=== PATIENT | female | born 1960 | race African-American/Black ===

== ENCOUNTER 2017-09-30 18:15 | Inpatient (IN) | payer OTHER, SELFPAY ==
[2017-09-30] MEDS ORDERED: Oxymetazoline HCl 0.05% ( 15 ML ) ONE (18:30)
[2017-09-30] MEDS ORDERED: cloNIDine 0.1 MG TAB ONE ×2 (18:31→18:32)
[2017-09-30] MEDS ORDERED: Bacitracin Zinc 1 Packet ONE ×2 (19:49→19:51)
--- NOTE | 2017-09-30 20:16 | RAD ---
AP VIEW OF THE CHEST: 09/30/17 INDICATION: Chest pain with nose bleeds. COMPARISON: Prior exam dated 04/18/12. FINDINGS: Lungs are clear. Cardiomediastinal silhouette appears unchanged. There is mild cardiomegaly. Osseous structures are similar. IMPRESSION: Stable cardiomegaly. No definite acute cardiopulmonary abnormality. POS: [facility]
[2017-09-30 20:37] LABS: #Basophils 0.1 thou/uL (0.0-0.2); #Eosinphils 0.1 thou/uL (0.0-0.7); #Lymphocytes 1.2 thou/uL (1.20-3.40); #Monocytes 0.4 thou/uL (0.11-0.59); #Neutrophils 3.5 thou/uL (1.40-6.50); %Basophils 1.5 % (0.0-1.0); %Eosinophils 2.3 % (0.0-10.0); %Lymphocytes 22.9 % (21.0-51.0); %Monocytes 6.9 % (0.0-10.0); %Neutrophils 66.3 % (42.0-75.0); Hemoglobin 8.4 g/dL (12.0-16.0); Mean Platelet Volume 8.3 fL (7.4-10.4); Platelet Count 152 thou/uL (130-400); RBC Distribution Width 11.7 % (11.5-14.5); Red Blood Cell (RBC) Count 2.47 mill/uL (4.20-5.40); White Blood Cell (WBC) Count 5.3 thou/uL (4.8-10.8)
[2017-09-30 20:52] LABS: ALT (SGPT) 19 U/L (8-55); AST (SGOT) 41 U/L (5-34); Alkaline Phosphatase 66 U/L (40-150); Anion Gap 15 mmol/L (10-20); BUN (Urea Nitrogen) 40 mg/dL (9.8-20.1); Bilirubin, Total 0.3 mg/dL (0.2-1.2); CK (CPK) 184 U/L (29-168); Calc. Creatinine Clearance 0 mL/min (70-130); Calcium 8.8 mg/dL (7.8-10.44); Carbon Dioxide 18 mmol/L (22-29); Chloride 112 mmol/L (98-107); Estimated GFR-MDRD 30; Globulin 3.4 g/dL (2.4-3.5); Glucose 112 mg/dL (70-105); Potassium 4.1 mmol/L (3.5-5.1); Protein, Total 7.4 g/dL (6.0-8.3); Sodium 141 mmol/L (136-145)
[2017-09-30 20:56] LABS: CKMB 1.7 ng/mL (0-6.6); Troponin I 0.013 ng/mL (< 0.028)
[2017-09-30] MEDS ORDERED: hydrALAZINE 20 MG/ML VIAL ONE (21:15)
[2017-09-30] MEDS ORDERED: Ondansetron ODT 4 MG TAB ONE ×3 (21:16→21:53)
[2017-09-30] MEDS ORDERED: niCARdipine 20MG In NaCl 20 MG/200 ML BAG ONE (21:43)
[2017-09-30 21:44] LABS: Bilirubin Negative (Negative); Blood, Urine Negative (Negative); Clarity CLEAR (Clear); Glucose, Urine (Dipstick) Negative (Negative); Leukocyte Negative (Negative); Nitrite Negative (Negative); Protein, Urine (Dipstick) 100 mg/dL (Neg-Trace)
[2017-09-30 21:46] LABS: Bacteria/HPF None Seen HPF (None Seen); Hyaline Casts/LPF 0-3 HYALINE CAST LPF (0-3 Hyaline); RBC/HPF 0-3 HPF (0-3); Squamous Epithelial 0-3 HPF (0-3); WBC/HPF 0-3 HPF (0-3)
--- NOTE | 2017-09-30 23:04 | CT ---
CT OF THE BRAIN WITHOUT CONTRAST: 09/30/17 INDICATION: History of head pain and nose bleeds. COMPARISON: Prior exam dated 04/18/12. FINDINGS: There is mild generalized cerebral atrophy. There is mild chronic small vessel white matter ischemic change. No acute infarct, hemorrhage or hydrocephalus present. small air fluid level seen in the righ t maxillary sinus and sphenoid sinus. Skull is intact. IMPRESSION: 1. No acute intracranial abnormality. 2. Stable involutional changes and chronic ischemic change. 3. Small air fluid levels within the right maxillary sinus and sphenoid sinus may be related to the patient's reported nose bleed and some hemorrhage collecting within the paranasal sinuses. POS: [facility]
[2017-09-30] MEDS ORDERED: hydrALAZINE 20 MG/ML VIAL SLOW IVP PRN (23:24)
[2017-09-30] MEDS ORDERED: Ondansetron ODT 4 MG TAB SL PRN (23:25)
[2017-09-30] MEDS ORDERED: Acetaminophen 325 MG TAB PO PRN (23:25)
[2017-09-30] MEDS ORDERED: Ondansetron HCl/PF 4 MG/2 ML Vial IVP PRN (23:25)
[2017-09-30] MEDS ORDERED: Sodium Chloride 0.9% 1,000 ML IV SCH (23:25)
[2017-09-30 23:29] VITALS: BMI 20.9
[2017-10-01] MEDS ORDERED: Milk Of Magnesia 30 ML UDCUP PO PRN (00:24)
[2017-10-01] MEDS ORDERED: Zolpidem Tartrate 5 MG TAB PO PRN (00:24)
[2017-10-01] MEDS ORDERED: Ondansetron ODT 4 MG TAB PO PRN (00:24)
[2017-10-01] MEDS ORDERED: Nitroglycerin 0.4 MG TAB (25 Tab Bottle) SL PRN (00:24)
[2017-10-01] MEDS ORDERED: hydrALAZINE 20 MG/ML VIAL SLOW IVP PRN (00:24)
[2017-10-01] MEDS ORDERED: Senokot 8.6 MG TAB PO PRN (00:24)
[2017-10-01] MEDS ORDERED: Sodium Chloride 0.65% Nasal 44 ML BOT EA NARE PRN (00:24)
[2017-10-01] MEDS ORDERED: Artificial Tears 18 DROP/0.9 ML EA EYE PRN (00:24)
[2017-10-01] MEDS ORDERED: Acetaminophen 325 MG TAB PO PRN (00:24)
[2017-10-01] MEDS ORDERED: cloNIDine 0.1 MG TAB PO PRN (00:24)
[2017-10-01] MEDS ORDERED: HYDROcodone/Acetaminophen 5/325 mg Tablet PO PRN (00:24)
[2017-10-01] MEDS ORDERED: Loratadine 10 MG TAB PO PRN (00:24)
[2017-10-01] MEDS ORDERED: Mag-Al 1200 mg/1200 mg/30 ML UDCUP PO PRN (00:24)
[2017-10-01] MEDS ORDERED: Hydrocerin (Eucerin) Cream 120 gm Jar TOP PRN (00:24)
[2017-10-01] MEDS ORDERED: Loperamide HCl 2 MG CAP PO PRN (00:24)
[2017-10-01] MEDS ORDERED: Ondansetron HCl/PF 4 MG/2 ML Vial IVP PRN (00:24)
[2017-10-01] MEDS ORDERED: Labetalol HCl 100 MG/20 ML VIAL SLOW IVP PRN (00:24)
[2017-10-01] MEDS ORDERED: Chloraseptic Spray 180 ml Bottle PO PRN (00:24)
[2017-10-01] MEDS ORDERED: Diabetic Tussin 200 MG/10 ML UDCUP PO PRN (00:24)
[2017-10-01] MEDS: Nicotine 21 MG PATCH TD SCH ×2 (01:24→20:41)
[2017-10-01 01:38] LABS: Bilirubin Negative (Negative); Blood, Urine Negative (Negative); Clarity CLEAR (Clear); Glucose, Urine (Dipstick) Negative (Negative); Leukocyte Negative (Negative); Nitrite Negative (Negative); Protein, Urine (Dipstick) 100 mg/dL (Neg-Trace); pH, Urine 6.5 (5.0-9.0)
[2017-10-01 01:41] LABS: Bacteria/HPF None Seen HPF (None Seen); Hyaline Casts/LPF 0-3 HYALINE CAST LPF (0-3 Hyaline); Pathc Cast-AUWi Flag 0.14 (0-2.49); RBC/HPF 0-3 HPF (0-3); Squamous Epithelial 0-3 HPF (0-3); WBC/HPF None Seen HPF (0-3)
[2017-10-01 01:45] LABS: Amphetamine Not Detected (NotDetected); Barbiturates Screen Not Detected (NotDetected); Benzodiazepine Screen Not Detected (NotDetected); Cocaine Metabolite Screen Not Detected (NotDetected); Medtox Control Line Valid? VALID (VALID); Medtox Reader # READER 4; Methadone Not Detected (NotDetected); Methamphetamine Not Detected (NotDetected); Opiate Screen Not Detected (NotDetected); Oxycodone Screen Not Detected (NotDetected); Phencyclidine (PCP) Not Detected (NotDetected); THC/Cannabinoid Screen Not Detected (NotDetected); Tricyclic Screen Not Detected (NotDetected)
[2017-10-01 02:07] LABS: Creatinine, Urine 37.09 mg/dL (47-110)
--- NOTE | 2017-10-01 02:21 | HP ---
PRIMARY CARE PHYSICIAN: City call admission. REASON FOR ADMISSION: Hypertensive urgency/emergency, epistaxis. HISTORY OF PRESENT ILLNESS: A 57-year-old -[place] female who has history of hypertension an d she is not taking any medication because she cannot afford any medication. Today, she came to [facility] room with epistaxis. The patient had spontaneous epistaxis from the right naris only for 4 shane rs. The patient denies any trauma. She denies any bleeding disorders. She denies taking any blood thinner medication. When she presented to emergency room, she was hypertensive. Her epistaxis was c ontrolled with packing. Subsequently, the patient was having headache and her blood pressure was out of control and that is why the patient is being admitted in hospital. Today, routine blood tests showed an elevated creatinine. Her last admission in our hospital was in 2011. At that time, her renal function was normal. Since then, she did not have any further check o r hospitalization, so in between creatinine is not known. The patient reports that she has not seen any physician since then. PAST MEDICAL HISTORY: History of hypertension. PAST SURGICAL HISTORY: Hand surgery. PAST PSYCHIATRIC HISTORY: Reviewed and negative. FAMILY HISTORY: Hypertension runs among several family members. No strong family history of prematu re coronary artery disease, stroke or cancer. SOCIAL HISTORY: The patient drinks alcohol almost every day basis. She also smokes about 1 pack per day. She denies any other illicit drug abuse. ALLERGIES: No known drug allergy. CURRENT HOME MEDICATIONS: The patient is not taking any prescribed or non-prescribed medications. S he cannot afford any medication. REVIEW OF SYSTEMS: The following complete review of systems was negative, unless otherwise mentioned in the HPI or below: Constitutional: Weight loss or gain, ability to conduct usual activities. Sk in: Rash, itching. Eyes: Double vision, pain. ENT/Mouth: Nose bleeding, neck stiffness, pain, te nderness. Cardiovascular: Palpitations, dyspnea on exertion, orthopnea. Respiratory: Shortness of breath, wheezing, cough, hemoptysis, fever or night sweats. Gastrointestinal: Poor appetite, abdom inal pain, heartburn, nausea, vomiting, constipation, or diarrhea. Genitourinary: Urgency, frequenc y, dysuria, nocturia. Musculoskeletal: Pain, swelling. Neurologic/Psychiatric: Anxiety, depressio n. Allergy/Immunologic: Skin rash, bleeding tendency. Please see my HPI for pertinent positive and negative. All other review of systems reviewed and negative except as mentioned in the HPI. EMERGENCY ROOM COURSE: The patient was given hydralazine 10 mg IV push, clonidine 0.2 mg, Afrin nasa l spray, Zofran 4 mg x2. PHYSICAL EXAMINATION: VITAL SIGNS: On arrival, blood pressure 254/134, pulse 112, respiratory rate 16, temperature 98.3, s aturation 94% on room air, weight 54.4 kilograms. GENERAL: The patient is currently alert, awake, hypertensive. HEAD: Normocephalic, atraumatic. EYES: Pupils are round and reactive to light. Extraocular muscle intact. ENT: The patient has bleeding from right naris, which is covered, which is stopped after packing. N dimitrios trocar is present. Left naris within normal limits. Oropharynx within normal limits. No phary ngeal erythema, no exudate. NECK: Supple, no thyromegaly, no carotid bruit, no jugular venous distention. LUNGS: Clear to auscultation without any rhonchi or rales. CARDIAC: S1, S2 regular without any significant murmur. ABDOMEN: Soft, bowel sounds present, nontender, nondistended. No organomegaly, no mass, no suprapub ic tenderness. BACK: Unremarkable, no CVA tenderness. EXTREMITIES: Upper extremity: Passive movement of all joints are normal. Lower extremities: No ed rashaun. Good peripheral pulsation. SKIN: No skin rash. HEMATOLOGICAL SYSTEM: No lymphadenopathy. PSYCHIATRIC: Normal affect. NEUROLOGIC: Nonfocal examination. Cranial nerves II-XII intact. Motor and sensation within normal limits. No cerebellar sign. Plantar bilateral flexor. SIGNIFICANT LABORATORY DATA: 1. EKG showing normal sinus rhythm. 2. CT brain based on my review, no acute intracranial process. 3. Chest x-ray based on my review, no acute cardiopulmonary process. 4. CBC: WBC 5.3, hemoglobin 8.4, MCV 100, platelet 152. 5. BMP: Sodium 141, potassium 4.1, chloride 112, carbon dioxide 18, BUN 40, creatinine 2.04, glucos e 112, calcium 8.8. 6. LFT: AST 41, ALT 15, alkaline phosphatase 66, albumin 4.0. 7. CK 184, CK-MB 1.7, troponin I 0.013. BNP 63.4. 8. Urinalysis, unremarkable other than protein plus. ASSESSMENT AND PLAN: IMPRESSION: 1. Hypertensive urgency/emergency. This patient has renal insufficiency. Her blood pressure was ve ry high and associated with epistaxis. At this point, we are going to control her blood pressure wit h intermittent parenteral blood pressure medication including hydralazine and labetalol. We will als o use clonidine on p.r.n. basis. I will start Procardia-XL 60 mg p.o. daily and Coreg 12.5 mg p.o. t wice daily. We will monitor her vitals closely in IMCU and adjust blood pressure medication. The [facility] may need a financial assistance for medication upon discharge. 2. Epistaxis likely related with hypertension. ENT will be consulted. This patient will need remov al of nasal packing once bleeding stops. We will give her prophylactically Augmentin 500 mg twice da fela. 3. Acute/chronic kidney failure. I am suspecting chronic kidney failure from hypertensive nephroscl erosis. We will check urine protein/creatinine ratio. Kidney ultrasound will be obtained. We will check parathyroid hormone and phosphorus level tomorrow. We will repeat renal function test tomorrow . The patient will need outpatient Nephrology evaluation. 4. Macrocytic anemia from alcohol abuse. The patient will be given folic acid and vitamin B12 thera py while in hospital. 5. Tobacco abuse disorder. Smoking cessation counseling given. We will offer nicotine patch while in hospital. 6. Deep venous thrombosis prophylaxis. No Lovenox because of bleeding. 7. Gastrointestinal prophylaxis, Pepcid 20 mg p.o. daily. 8. Code status: The patient is FULL CODE. The patient does not have any surrogate decision maker. Disposition plan based on clinical course. We are expecting the patient's stay in hospital more than 2 midnights. Plan of care discussed with the patient in detail.
[2017-10-01 02:32] LABS: #Basophils 0.1 thou/uL (0.0-0.2); #Lymphocytes 1.5 thou/uL (1.20-3.40); #Monocytes 0.4 thou/uL (0.11-0.59); %Basophils 0.9 % (0.0-1.0); %Eosinophils 0.7 % (0.0-10.0); %Lymphocytes 21.5 % (21.0-51.0); %Monocytes 5.3 % (0.0-10.0); %Neutrophils 71.6 % (42.0-75.0); Hemoglobin 8.1 g/dL (12.0-16.0); Mean Corpuscular HGB CONC 33.5 g/dL (32.0-36.0); Mean Corpuscular Hemoglobin 33.7 pg (27.0-31.0); Mean Platelet Volume 7.6 fL (7.4-10.4); Platelet Count 134 thou/uL (130-400); RBC Distribution Width 11.8 % (11.5-14.5)
[2017-10-01 02:48] LABS: Troponin I 0.015 ng/mL (< 0.028)
[2017-10-01 03:13] LABS: Albumin 3.9 g/dL (3.5-5.0); Anion Gap 17 mmol/L (10-20); BUN (Urea Nitrogen) 44 mg/dL (9.8-20.1); BUN/Creatinine Ratio 23.04; Calc. Creatinine Clearance 28 mL/min (70-130); Calcium 8.8 mg/dL (7.8-10.44); Carbon Dioxide 15 mmol/L (22-29); Chloride 109 mmol/L (98-107); Estimated GFR-MDRD 33; Glucose 122 mg/dL (70-105); Phosphorus 4.4 mg/dL (2.3-4.7); Potassium 3.7 mmol/L (3.5-5.1); Sodium 137 mmol/L (136-145)
[2017-10-01] MEDS: NIFEdipine XL 60 MG TAB PO SCH (08:11)
[2017-10-01] MEDS: hydrALAZINE 25 MG TAB PO SCH ×3 (08:11→20:41)
[2017-10-01] MEDS: Carvedilol 25 MG TAB PO SCH ×2 (08:11→15:20)
[2017-10-01] MEDS: Folic Acid 1 MG TAB PO SCH (08:11)
[2017-10-01] MEDS: Famotidine 20 MG TAB PO SCH (08:11)
[2017-10-01] MEDS: Cyanocobalamin (Vitamin B-12) 1,000 MCG TAB PO SCH (08:11)
--- NOTE | 2017-10-01 08:49 | ULT ---
RENAL SONOGRAM: DATE: 10/01/17. HISTORY: Acute renal insufficiency. FINDINGS: The kidneys demonstrate increased echogenicity bilaterally without renal cortical thinning. The righ t kidney measures 9.7 cm x 5 cm with the left kidney measuring 9.8 cm x 5 cm. There is no hydronephr osis seen bilaterally. There is a suggestion of a small amount of perinephric fluid bilaterally. Th ere is a very small echogenic focus seen within the mid portion of the left kidney with shadowing pre sent. This measures approximately 5 mm and may potentially represent a calculus, although this is di fficult to definitely determine. No renal mass or hydronephrosis is present. The urinary bladder is partially distended and has a normal sonographic appearance. The ureteral jet s are seen bilaterally on color flow evaluation. IMPRESSION: 1. Hyperechoic appearance of each kidney without renal cortical thinning. This can be seen with chr onic medial renal disease. 2. No evidence of hydronephrosis. 3. Questionable nonobstructing calculus mid portion left kidney. 4. No hydronephrosis. POS: [facility]
--- NOTE | 2017-10-01 14:11 | CON ---
DATE OF CONSULTATION: 10/01/2017 HISTORY OF PRESENT ILLNESS: Vy Middleton presented to the emergency room with a nose bleed this morning. For some reason, she had a head CT and a chest x-ray. Chest radiograph shows a generous cardiac silhouette which is an old finding. Head CT showed chronic white matter disease issues. Her right naris was packed. She has had a right renal ultrasound this morning, which hyperechogenic appearance of both kidneys with possible calculus in the left kidney. This was read out as questionable. PAST MEDICAL HISTORY: Remarkable for hypertension. She admits that she has not been taking any medicine for hypertension because she "cannot afford it." We discussed [facility] as well as [facility] $ 4 plan and I have explained to her that she is very fortunate that she just in here with a nose bleed and not parenchymal brain hemorrhage. When she was last here, she was at the [facility] as an inmate and presented with complaints of passing out. Family reported history of COPD, heavy alcohol use, heavy tobacco use, hypertension, and carpal tunnel surgery. SOCIAL HISTORY: Patient uses alcohol / tobacco FAMILY HISTORY: Positive for mother in her 70s. Father had diabetes. REVIEW OF SYSTEMS: 10 point review otherwise negative. PHYSICAL EXAMINATION: GENERAL: Currently, she is in no distress. VITAL SIGNS: Blood pressure, 202/100 at 8:00 this morning, was 171/88 at 11: 47. Heart rate is 92, respiratory rate 16, oximetry is 98 on room air. HEENT: Her right naris was packed. I removed the packing. She had no bleeding after this was removed. LUNGS: Clear. HEART: Regular rhythm. ABDOMEN: Soft. EXTREMITIES: Without clubbing, cyanosis, or edema. NEUROLOGIC: Grossly nonfocal. LABORATORY DATA: White count 7, hemoglobin 8.1, platelets 134,000. Sodium 137 , chloride 109, bicarbonate 15 at 2:00 this morning, BUN 44, creatinine 1.9. IMPRESSION: 1. Hypertensive nose bleed. 2. Chronic kidney disease with a creatinine of 1.9. Her creatinine was 2.0 when she came in and her creatinine was 0.8 in 2011. 3. Noncompliance with treatment of her hypertension. 4. History of heavy tobacco and alcohol. PLAN: Continue supportive care with attempts at getting reasonable control of her blood pressure. She does not need to have "normal blood pressure" when she is discharged, but getting her down into the 140-170 range would be a reasonable goal to start and then she could follow up with [facility] and prescriptions could be given to her at discharge with meds that are on the $4 plan at [facility]. Hopefully, this is still an existing and functional plan. This is a 70-minute consult greater than 50% of the time spent on unit coordinating care. HOWIE
--- NOTE | 2017-10-01 17:09 | PRG ---
DATE OF SERVICE: 10/01/2017 SUBJECTIVE: The patient is seen and examined at the bedside. She is not having any complaints at [facility] point. She does not have any headache. She is able to get up and go to the bathroom without any assistance. She had bowel movement and her appetite is fair. OBJECTIVE: VITAL SIGNS: Blood pressure is 181/95, down to 140/79 at 1520; pulse is 92; respiratory rate is 16; and O2 saturation is 98% on room air. HEENT: Head: Atraumatic, normocephalic. Eyes: PERRLA. Conjunctivae pinkish. Oral mucosa is mois t. NECK: Supple, no lymphadenopathy. Thyroid is not palpable. LUNGS: Clear. HEART: S1, S2 normal, no S3, no S4, no any murmur. ABDOMEN: Soft and nontender. Bowel sounds are present. No organomegaly. NEUROLOGIC: She is alert and oriented x4. There is no any sensorimotor deficits present. Cranial n erves are intact. LABORATORY DATA: Showed a white count of 7.0, hemoglobin 8.1, hematocrit 24.1, and platelet count is 134,000. Sodium of 137, potassium 3.7, chloride 109, CO2 is 15, creatinine 1.91, BUN 44, glucose 12 2 and the rest of chemistry within normal limits. Troponin I is 0.015. Albumin 3.9. PTH intact and it is 312.3. Urinalysis showed 100 of protein, trace of ketones, 37.9 of urine creatinine, and urin e random is 185. Toxicology on her urine did not show any positive findings. Ultrasound of kidneys showed some changes which are typical for chronic renal disease. IMPRESSION: 1. Hypertensive urgency/emergency. The patient's blood pressure is significantly better. She is on Procardia and Coreg. She will be transferred to telemetry floor and if her blood pressure is stable , she will be probably discharged home tomorrow. 2. Epistaxis, likely related to hypertension. The nasal packing was removed. 3. Chronic kidney failure, most likely related to uncontrolled hypertension, which is chronic noncom pliance. She will need outpatient Nephrology evaluation. 4. Microcytic anemia, most likely from alcohol abuse. She will need to be on multivitamin a day sin ce she is chronically malnourished secondary to alcohol use. 5. Tobacco abuse disorder. PLAN: As I mentioned above, she will be discharged home most likely tomorrow. Her blood pressure is well controlled. She would be moved to telemetry. Her PTH was just checked and it is elevated, mos t likely she will need additional workup on this. Her ionized calcium could be checked, but it takes few days just to get it back results, but this will be ordered to obtain a more detailed information about her elevated PTH.
[2017-10-02 07:25] VITALS: TEMP 98.9
[2017-10-02] MEDS: Famotidine 20 MG TAB PO SCH (08:40)
[2017-10-02] MEDS: NIFEdipine XL 60 MG TAB PO SCH (08:40)
[2017-10-02] MEDS: Carvedilol 25 MG TAB PO SCH (08:40)
[2017-10-02] MEDS: hydrALAZINE 25 MG TAB PO SCH (08:41)
[2017-10-02] MEDS: Cyanocobalamin (Vitamin B-12) 1,000 MCG TAB PO SCH (08:41)
[2017-10-02] MEDS: Folic Acid 1 MG TAB PO SCH (08:41)
[2017-10-02 11:23] VITALS: BP 142/80
--- NOTE | 2017-10-02 11:56 | DIS ---
DATE OF ADMISSION: 09/30/2017 DATE OF DISCHARGE: 10/02/2017 PRIMARY CARE PHYSICIAN: Dr. Abisai Ford. DISCHARGE DISPOSITION: Home. PRIMARY DISCHARGE DIAGNOSES: 1. Hypertensive emergency, controlled. 2. Epistaxis, resolved. 3. Acute on chronic kidney failure, baseline chronic kidney disease stage 3. 4. Nephrotic range proteinuria. SECONDARY DISCHARGE DIAGNOSES: 1. Hypertensive nephrosclerosis. 2. Macrocytic anemia. 3. Noncompliance with medication. 4. Tobacco abuse. 5. Alcohol abuse. 6. Hypertension. 7. Chronic kidney disease stage 3. PRIMARY PROCEDURE AND OPERATION: None. RADIOLOGICAL INVESTIGATION: Chest x-ray normal. CT brain negative. Renal ultrasound showed chronic renal disease. SIGNIFICANT LABORATORY DATA: WBC 7.0, hemoglobin 8.1, MCV 100, platelet 134. Sodium 137, potassium 3.7, BUN 44, creatinine 1.91, glucose 122, phosphorus 3, PTH 312.3. Cardiac enzymes negative x3. BN P 63.4, albumin 3.9. Urinalysis unremarkable. Protein random 185. Urine creatinine 37.09. Urine d rug screen negative. DISCHARGE MEDICATIONS: Coreg 25 mg p.o. b.i.d., vitamin B12 1000 mcg p.o. daily, folic acid 1 mg p.o . daily, lisinopril 10 mg p.o. daily, hydralazine 25 mg p.o. t.i.d. CONTRAINDICATIONS: None. CODE STATUS: FULL CODE. INPATIENT FIELD LABORER: Dr. Giron was following while in hospital, because the patient was admitted in [facility]. TEST RESULTS PENDING ON DISCHARGE: None. ALLERGIES: No known drug allergy. DISCHARGE PLAN: Post hospital, the patient is strongly advised to follow up with primary care physic josh in 1 week. HOSPITAL COURSE: The patient is a 57-year-old female who has history of hypertension, but she was no t taking any blood pressure medication. She was brought to emergency room for epistaxis and the priscila ent's epistaxis was controlled with the nasal packing and subsequently she was admitted in [facility]. We did serial cardiac enzyme and that were negative for acute coronary syndrome. Patient's blood pressu re medication was adjusted and started as above. The patient was given [facility] 4 dollar prescription medication, so she can afford medication. While in hospital, we provided counseling to avoid smokin g, alcohol abuse as well as to remain compliant with medical regimen. All new medication prescriptio n sent to her pharmacy. PHYSICAL EXAMINATION: Patient is seen and examined at bedside today. VITAL SIGNS: Currently temperature 98.9, pulse 80, respiratory rate 20, saturation 99%, blood pressu re 142/80, weight 117 pounds. GENERAL: The patient is currently alert, awake, no acute distress. HEAD: Normocephalic, atraumatic. EYES: Pupils round, reactive to light. Extraocular muscle intact. ENT: Oropharynx within normal limits. Moist mucous membranes. No oral lesion, no pharyngeal erythe ma, no exudate. NECK: Supple, no JVD, no thyromegaly, no carotid bruit. LUNGS: Clear to auscultation without any rhonchi. CARDIAC: S1, S2 regular without any murmur. ABDOMEN: Soft and benign. EXTREMITIES: No edema. NEUROLOGIC: Nonfocal examination. The patient is medically stable for discharge today. All review of system reviewed with her and sherry silveira. Compliance with medication and diet education was given as well.
--- NOTE | 2017-10-02 12:42 | PRG ---
DATE OF SERVICE: 10/02/2017 Vy Middleton did well overnight. Blood pressure is much more controlled. PHYSICAL EXAMINATION: VITAL SIGNS: Blood pressure is 133/83, heart rate 84, respiratory rate 18. She is afebrile. LUNGS: Lungs are clear. HEART: Regular rhythm. ABDOMEN: Abdomen is soft. LABORATORY DATA: There is no new lab today. IMPRESSION: 1. Hypertensive induced epistaxis. 2. Uncontrolled hypertension. 3. Chronic kidney disease secondary to uncontrolled hypertension. I have explained to her it is absolutely imperative that she stay on her blood pressure medicines to avoid needing dialysis within the next 5-10 years and also to avoid a parenchymal brain hemorrhage. I explained to her that it is fortunate this was simply a nosebleed. She will try to make a follow u p with [facility] and I have recommended that we try to get her into medications that are in the 4 dollar plan at [facility] for control of her blood pressure.
[2017-10-03 11:24] LABS: Ionized Calcium 4.4 mg/dL (4.5-5.6)
== END 2017-10-02 12:32 | disposition home or self-care (01) | DRG 305 ==
LOC: ERS 18:15 → IMCU/EMU 21:57
PROVIDERS: ADMIT Internal Medicine; ATTEND Internal Medicine
DX: I16.1 Hypertensive emergency (principal); R04.0 Epistaxis; D50.9 Iron deficiency anemia, unspecified; F10.10 Alcohol abuse, uncomplicated; Z91.19 Patient's noncompliance with other medical treatment and regimen; I12.9 Hypertensive chronic kidney disease with stage 1 through stage 4 chronic kidney disease, or unspecified chronic kidney disease; N18.3 Chronic kidney disease, stage 3 (moderate); F17.210 Nicotine dependence, cigarettes, uncomplicated
CPT/HCPCS: 30903; 36415; 70450; 71045; 76770; 80053; 80069; 80306; 81001; 81003; 81015; 82330; 82553; 82570; 83880; 83970; 84156; 84484; 85025; 93005; 96374; J0360; Q0162

== ENCOUNTER 2018-12-10 17:12 | Observation (INO) | payer SELFPAY ==
[2018-12-10 17:49] LABS: #Eosinphils 0.1 thou/uL (0.0-0.7); #Lymphocytes 1.1 thou/uL (1.20-3.40); #Monocytes 0.5 thou/uL (0.11-0.59); #Neutrophils 4.1 thou/uL (1.40-6.50); %Basophils 0.3 % (0.0-1.0); %Eosinophils 1.4 % (0.0-10.0); %Lymphocytes 18.7 % (21.0-51.0); %Monocytes 8.6 % (0.0-10.0); Hemoglobin 8.1 g/dL (12.0-16.0); Mean Corpuscular HGB CONC 31.2 g/dL (32.0-36.0); Mean Corpuscular Hemoglobin 30.6 pg (27.0-31.0); Platelet Count 249 thou/uL (130-400); RBC Distribution Width 12.3 % (11.5-14.5); Red Blood Cell (RBC) Count 2.65 mill/uL (4.20-5.40); White Blood Cell (WBC) Count 5.7 thou/uL (4.8-10.8)
--- NOTE | 2018-12-10 18:02 | RAD ---
PA CHEST: HISTORY: Chest pain. COMPARISON: 09/30/2017 FINDINGS: The lungs appear clear of infiltrate. The CP angles are blunted, and small effusions are not exclude d. Vascular markings are normal, with no evidence of congestion or edema. IMPRESSION: 1. Evidence of small bilateral effusions. 2. No focal infiltrate. POS: [facility]
[2018-12-10 18:17] LABS: ALT (SGPT) 12 U/L (8-55); AST (SGOT) 23 U/L (5-34); Albumin 4.3 g/dL (3.5-5.0); Alkaline Phosphatase 72 U/L (40-150); Anion Gap 22 mmol/L (10-20); BUN (Urea Nitrogen) 42 mg/dL (9.8-20.1); Bilirubin, Total 0.5 mg/dL (0.2-1.2); CK (CPK) 60 U/L (29-168); Calc. Creatinine Clearance 0 mL/min (70-130); Calcium 10.1 mg/dL (7.8-10.44); Carbon Dioxide 15 mmol/L (22-29); Chloride 107 mmol/L (98-107); Estimated GFR-MDRD 18; Globulin 4.3 g/dL (2.4-3.5); Glucose 83 mg/dL (70-105); Potassium 4.9 mmol/L (3.5-5.1); Protein, Total 8.6 g/dL (6.0-8.3); Sodium 139 mmol/L (136-145)
[2018-12-10] MEDS ORDERED: Famotidine/PF 20 mg/2ml Vial ONE (18:41)
[2018-12-10] MEDS ORDERED: Morphine 4 MG/ML VIAL ONE (18:41)
[2018-12-10] MEDS ORDERED: Labetalol HCl 100 MG/20 ML VIAL ONE (19:09)
[2018-12-10] MEDS ORDERED: Ondansetron PF 4 MG/2 ML Vial ONE (19:35)
[2018-12-10 19:36] LABS: Bilirubin Negative (Negative); Blood, Urine Trace (Negative); Clarity Clear (Clear); Glucose, Urine (Dipstick) Normal (Negative); Leukocyte Negative Leu/uL (Negative); Nitrite Negative (Negative); Protein, Urine (Dipstick) 200 mg/dL (Neg-Trace); RBC/HPF 0-3 HPF (0-3); Urobilinogen Normal mg/dL (Less than 2); WBC/HPF 0-3 HPF (0-3)
--- NOTE | 2018-12-10 19:54 | CT ---
CT ABDOMEN AND PELVIS WITHOUT IV CONTRAST: INDICATIONS: Upper abdominal pain and bilateral flank pain. COMPARISON: None. FINDINGS: Images through the lung bases show small bilateral pleural effusions and mild bibasilar atelectasis. Images of the liver reveal a low attenuation lesion, measuring 1.2 cm, in the anterior left lobe, lat eral segment, along the liver margin. There is also nonspecific low attenuation along the fissure in the left lobe. The spleen is mildly heterogeneous, of uncertain significance. Small sliding diaphragmatic hernia. The pancreas shows abnormal low attenuation in the tail of the pancreas, measuring up to 3 cm. This is not adequately evaluated on this noncontrast study. The adrenal glands are unremarkable. There is bilateral perinephric stranding, suggesting prior renal inflammatory process. There is no e vidence of hydronephrosis or urinary calculus. There is no evidence of urinary tract obstruction. T he urinary bladder is unremarkable. Small bowel loops are of normal caliber. The appendix appears unremarkable. The colon is unremarkab le. Images through the pelvis show a mildly prominent heterogeneous uterus. There is a small amount of f ree fluid in the cul-de-sac. There is calcification in the myometrium, consistent with fibroid. The aorta shows atherosclerotic changes but is of normal caliber. Nonspecific adenopathy is seen in the retroperitoneum, in the peripancreatic region and in the periao rtic region. Lymph nodes posterior to the vena cava, at the level of the renal vein, on the right, m easure up to 1.6 cm. IMPRESSION: 1. Small bilateral pleural effusions. 2. Nonspecific low attenuation lesions in the liver, which are not adequately characterized. 3. Low attenuation in the tail of the pancreas. Mild inflammatory stranding around the tail of the pancreas. Recommend clinical correlation regarding pancreatitis. Follow-up contrast exam is recomme nded. 4. Nonspecific retroperitoneal adenopathy. 5. Enlarged heterogeneous uterus with evidence of calcified fibroids. 6. Small amount of free fluid in the deep pelvis. 7. Bilateral perinephric stranding. POS: [facility]
[2018-12-10 20:04] LABS: Bacteria/HPF None Seen HPF (None Seen)
[2018-12-11] MEDS ORDERED: Morphine 4 MG/ML VIAL SLOW IVP PRN (00:12)
[2018-12-11] MEDS ORDERED: Ondansetron PF 4 MG/2 ML Vial IVP PRN (00:13)
[2018-12-11] MEDS ORDERED: Ondansetron ODT 4 MG TAB SL PRN (00:13)
[2018-12-11] MEDS ORDERED: Sodium Chloride 0.9% 1,000 ML IV SCH (00:15)
[2018-12-11] MEDS ORDERED: Acetaminophen 325 MG TAB PO PRN (00:31)
[2018-12-11] MEDS ORDERED: Acetaminophen 650 MG Suppository PR PRN (00:31)
[2018-12-11] MEDS ORDERED: Morphine 2 MG/ML SYRINGE SLOW IVP PRN (04:00)
[2018-12-11] MEDS ORDERED: hydrALAZINE 20 MG/ML VIAL SLOW IVP PRN (04:21)
[2018-12-11 04:35] LABS: #Eosinphils 0.1 thou/uL (0.0-0.7); #Lymphocytes 0.7 thou/uL (1.20-3.40); #Monocytes 0.6 thou/uL (0.11-0.59); #Neutrophils 3.1 thou/uL (1.40-6.50); %Basophils 0.9 % (0.0-1.0); %Eosinophils 2.2 % (0.0-10.0); %Lymphocytes 15.7 % (21.0-51.0); %Monocytes 12.8 % (0.0-10.0); %Neutrophils 68.4 % (42.0-75.0); Hemoglobin 7.2 g/dL (12.0-16.0); Mean Corpuscular HGB CONC 30.9 g/dL (32.0-36.0); Mean Corpuscular Hemoglobin 30.5 pg (27.0-31.0); Mean Corpuscular Volume 98.8 fL (78.0-98.0); Mean Platelet Volume 8.1 fL (7.4-10.4); Platelet Count 207 thou/uL (130-400); RBC Distribution Width 12.1 % (11.5-14.5); Red Blood Cell (RBC) Count 2.35 mill/uL (4.20-5.40); White Blood Cell (WBC) Count 4.6 thou/uL (4.8-10.8)
[2018-12-11 04:54] LABS: Anion Gap 16 mmol/L (10-20); BUN (Urea Nitrogen) 42 mg/dL (9.8-20.1); Calc. Creatinine Clearance 0 mL/min (70-130); Calcium 9.1 mg/dL (7.8-10.44); Carbon Dioxide 17 mmol/L (22-29); Chloride 110 mmol/L (98-107); Estimated GFR-MDRD 22; Glucose 82 mg/dL (70-105); Potassium 5.3 mmol/L (3.5-5.1); Sodium 138 mmol/L (136-145)
--- NOTE | 2018-12-11 05:05 | HP ---
PRIMARY CARE DOCTOR: The patient has no PCP. TIME OF EVALUATION: 12:00 a.m. CODE STATUS: Full code. CHIEF COMPLAINT: Chest pain. HISTORY OF PRESENT ILLNESS: This is a 58-year-old female patient with past medical history of chronic alcohol abuse, hypertension, came to the hospital after having epigastric pain that was severe when present, associated with vomiting with no clear triggers, no alleviating factors, only risk factors. The patient drinks alcohol on a daily basis. She reported a large amount. The pain is persistent. REVIEW OF SYSTEMS: CONSTITUTIONAL: No fever or chills. The patient has generalized weakness. RESPIRATORY: No cough, sputum production, or shortness of breath. CARDIOVASCULAR: No chest pain or palpitation. GASTROINTESTINAL: The patient has nausea and vomiting. No diarrhea. The patient does have abdominal pain. GAS MASK INSPECTOR: No dizziness, headache, or feeling lightheaded. GENITOURINARY: No burning on urination. EXTREMITIES: No leg swelling. All other systems were reviewed and negative except for the findings mentioned above. FAMILY HISTORY: The family history is reviewed. Mother has diabetes. PAST MEDICAL HISTORY: Hypertension and alcohol abuse. PAST SURGICAL HISTORY: Hand surgery. PSYCHIATRIC HISTORY: No previous psych history. SOCIAL HISTORY: The patient drinks everyday, reportedly a lot. No drug use. The patient smokes cigarettes. ALLERGIES: NO KNOWN DRUG ALLERGIES. REPORTED MEDICATIONS: Lisinopril. PHYSICAL EXAMINATION: VITAL SIGNS: On presentation, blood pressure 199/95 with heart rate 95, respiratory rate was 18, temperature 99, pain was 10/10, and oxygen saturation 98% on room air. GENERAL APPEARANCE: The patient is alert, oriented, in no acute distress. HEENT: Eyes, normal conjunctivae. Moist oral mucosa. Anicteric. No JVD. RESPIRATORY: Bilateral air entry. No rales. No wheezes. Symmetric expansion. CARDIOVASCULAR: Normal rate, regular rhythm. No murmurs. No gallop. No edema. ABDOMEN: Soft, mildly distended. The patient has epigastric tenderness that radiates diffusely. MUSCULOSKELETAL: Baseline range of motion and strength. SKIN: Warm, intact. No pallor. No rash. No redness. Capillary refill seems to be intact. NEURO: No evidence of any new focal weakness. Cranial nerves seem to be intact. PSYCH: The patient is in good mood. No anxiety. Optimal judgment. IMAGING: EKG was reviewed. The patient has normal sinus rhythm with a rate of 89. No evidence of any acute ischemic event. Chest x-ray shows evidence of small bilateral pleural effusion. No focal infiltrate. Abdomen and pelvis CT scan without contrast shows pancreatitis. LABORATORY DATA: Reviewed. The patient has white count of 5.7, hemoglobin 9.1, MCV 98, and platelet count 249. Chemistry: Sodium 139, potassium 4.9, chloride 107, carbon dioxide 15, anion gap 22, BUN 42, creatinine 3.21, GFR 18, glucose 83, calcium 10.1, and total bilirubin 0.5. LFTs were negative. Serum total protein 9.6, albumin 4.3, and globulin 4.3. ASSESSMENT AND PLAN: The patient will be placed in the hospital with the following medical problems. 1. Acute pancreatitis as seen in the CAT scan and also due to abdominal pain, this is likely secondary to chronic alcohol abuse. We will give hydration and pain medications. 2. Chronic normocytic anemia. This is likely secondary to underlying chronic kidney disease and alcoholism. We will monitor hemoglobin, if stable, we will adjust, and treat accordingly. 3. Acute on chronic kidney injury. The patient has a creatinine of 3.21 initial, in previous admission in old record was 1.9. We will hydrate aggressively, and we will monitor kidney function. If not improving, might need nephrology food trades assistants with our patient. 4. Deep vein thrombosis prophylaxis. 5. Uncontrolled hypertension. The patient presented with hypertension, reconcile home medications, might need IV p.r.n. medications for optimal control. Job ID: [id number]
[2018-12-11] MEDS: Amlodipine 10 MG TAB PO SCH (08:19)
[2018-12-11] MEDS: Sodium Chloride 0.9% 1,000 ML IV SCH ×4 (08:19→20:57)
[2018-12-11] MEDS: Enoxaparin Sodium 40 MG/0.4 ML SYRINGE SC SCH (08:21)
--- NOTE | 2018-12-11 10:29 | PDOC.EVN ---
Event Note - Event Note Event Note: Patient seen and examined lying in bed, she reports improved this morning. She reports some mild abdominal pain that is worse with palpation in epigastric region. She denies chest pain, palpitations or shortness of breath. She reported some nausea earlier today, which is now improved. She remains on IV fluids and pain regimen. She has requested a clear liquid diet for dinner, which we will start as tolerated. If she is able to tolerate food intake, she will likely discharge in the next 24 hours.
[2018-12-12] MEDS: Sodium Chloride 0.9% 1,000 ML IV SCH (04:42)
[2018-12-12] MEDS: Amlodipine 10 MG TAB PO SCH (08:32)
[2018-12-12] MEDS: Enoxaparin Sodium 40 MG/0.4 ML SYRINGE SC SCH (08:34)
[2018-12-12 11:48] VITALS: BP 177/92; TEMP 98.4
--- NOTE | 2018-12-12 14:08 | DIS ---
DATE OF ADMISSION: 12/10/2018 DATE OF DISCHARGE: 12/12/2018 FINAL DIAGNOSES: At the time of discharge; 1. Abdominal pain, most likely related to acute pancreatitis. 2. Chronic normocytic anemia. 3. Acute on chronic kidney injury. 4. Alcohol abuse. HOSPITAL COURSE: The patient is a 58-year-old female with past medical history of chronic alcohol abuse, hypertension, who came to the hospital after having epigastric pain that was severe when present, associated with vomiting with no clear triggers, no alleviating factors, and only risk factors. The patient drinks alcohol on a daily basis, large amount. The pain was persistent in the emergency room, and she had white count of 5.7, hemoglobin 9.1, MCV was 98, platelet count was 249. The electrolytes were within normal limits. CO2 of 15, BUN was 42, creatinine 3.21, glucose 83, calcium 10.1. Total bilirubin 0.5. LFTs were negative. Serum protein 9.6, albumin 4.3, globulin 4.3. EKG showed normal sinus rhythm with rate of 89, no evidence of any acute ischemic event. Chest x-ray showed evidence of small bilateral pleural effusion. No focal infiltrate. Abdomen and pelvis CT scan without contrast showed pancreatitis. The patient was placed on IV fluids with morphine p.r.n. for the pain. Her amlodipine was continued. Her followup lab work today showed hemoglobin of 10.2. Her chemistry was not performed this morning, but the patient does not want to stay in the hospital, she is aware of consequences and she is signing against medical advice and she is discharged home in good condition as it is. She is going to continue her home medications, which are amlodipine 10 mg once a day and Tylenol p.r.n. as needed for the pain. She will stay on full liquid diet and she will advance as tolerated, and she will follow up with her primary care physician in 1 week. She was seen and examined before she is discharge, and the discharge time is less than 30 minutes. Job ID: [id number]
== END 2018-12-12 13:09 | disposition home or self-care (01) ==
LOC: ERS 17:12 → 2SW 20:50
PROVIDERS: ADMIT Hospitalist; ATTEND Hospitalist
DX: K85.90 Acute pancreatitis without necrosis or infection, unspecified (principal); D64.9 Anemia, unspecified; I12.9 Hypertensive chronic kidney disease with stage 1 through stage 4 chronic kidney disease, or unspecified chronic kidney disease; N18.9 Chronic kidney disease, unspecified; N17.9 Acute kidney failure, unspecified; F10.10 Alcohol abuse, uncomplicated; J90 Pleural effusion, not elsewhere classified; F17.210 Nicotine dependence, cigarettes, uncomplicated; Z79.899 Other long term (current) drug therapy
CPT/HCPCS: 36415; 71045; 74176; 80048; 80053; 81003; 81015; 82550; 83690; 84484; 85025; 90471; 90732; 93005; 96361; 96374; 96375; 96376; G0009; G0378; J0360; J1650; J2270; J2405; S0028

== ENCOUNTER 2018-12-30 17:01 | Inpatient (IN) | payer SELFPAY ==
[2018-12-30 17:34] LABS: #Eosinphils 0.1 thou/uL (0.0-0.7); #Lymphocytes 0.7 thou/uL (1.20-3.40); #Monocytes 0.8 thou/uL (0.11-0.59); #Neutrophils 6.7 thou/uL (1.40-6.50); %Basophils 0.6 % (0.0-1.0); %Eosinophils 0.8 % (0.0-10.0); %Lymphocytes 8.1 % (21.0-51.0); %Neutrophils 80.5 % (42.0-75.0); Mean Corpuscular HGB CONC 31.8 g/dL (32.0-36.0); Mean Corpuscular Hemoglobin 29.8 pg (27.0-31.0); Mean Corpuscular Volume 93.6 fL (78.0-98.0); Mean Platelet Volume 7.5 fL (7.4-10.4); Platelet Count 319 thou/uL (130-400); RBC Distribution Width 12.7 % (11.5-14.5); White Blood Cell (WBC) Count 8.4 thou/uL (4.8-10.8)
[2018-12-30 17:55] LABS: ALT (SGPT) Less than 7 U/L (8-55); AST (SGOT) 11 U/L (5-34); Albumin 3.8 g/dL (3.5-5.0); Alkaline Phosphatase 60 U/L (40-150); Anion Gap 18 mmol/L (10-20); BUN (Urea Nitrogen) 50 mg/dL (9.8-20.1); Bilirubin, Total 0.3 mg/dL (0.2-1.2); Calc. Creatinine Clearance 0 mL/min (70-130); Calcium 9.7 mg/dL (7.8-10.44); Carbon Dioxide 15 mmol/L (22-29); Chloride 108 mmol/L (98-107); Estimated GFR-MDRD 11; Glucose 114 mg/dL (70-105); Lipase 60 U/L (8-78); Potassium 4.3 mmol/L (3.5-5.1); Protein, Total 7.8 g/dL (6.0-8.3); Sodium 137 mmol/L (136-145)
--- NOTE | 2018-12-30 18:01 | RAD ---
SINGLE VIEW OF THE CHEST: Comparison: 12-10-18 History: Shortness of breath for a few weeks and dyspnea. FINDINGS: Single view of the chest shows normal sized cardiomediastinal silhouette. There is a moderate right p leural effusion. There is also a small left pleural effusion. No consolidation is seen. IMPRESSION: Bilateral pleural effusions. POS: [facility]
[2018-12-30] MEDS ORDERED: Sodium Chloride 0.9% 100 ML ONE (18:29)
[2018-12-30] MEDS ORDERED: Piperacillin/Tazobactam 3.375 GM VIAL ONE (18:29)
[2018-12-30] MEDS ORDERED: Vancomycin HCl 1 GM in Premix Bag 1 BAG IVPB ONE (18:30)
[2018-12-30] MEDS ORDERED: Morphine 2 MG/ML SYRINGE SLOW IVP SCH (22:00)
[2018-12-30] MEDS ORDERED: Senokot S 8.6-50 MG TAB PO PRN (23:17)
[2018-12-30] MEDS ORDERED: Bisacodyl 10 MG SUPP PR PRN (23:17)
[2018-12-30] MEDS ORDERED: Heparin 5,000 UNITS/ML VIAL SC SCH (23:30)
[2018-12-30] MEDS ORDERED: Vancomycin HCl 1 GM in Premix Bag 1 BAG IVPB SCH (23:30)
[2018-12-30] MEDS ORDERED: Sodium Chloride 0.9% 1,000 ML IV SCH (23:30)
[2018-12-31] MEDS: Ondansetron ODT 4 MG TAB PO PRN (00:33)
[2018-12-31 00:43] LABS: Troponin I 0.013 ng/mL (< 0.028)
[2018-12-31 01:11] LABS: Vitamin B12 Greater than 2000 pg/mL (211-911)
--- NOTE | 2018-12-31 02:10 | HP ---
CHIEF COMPLAINT: Shortness of breath. HISTORY OF PRESENT ILLNESS: This patient is a 58-year-old female, who by her own admission drinks "a lot." The patient was actually admitted here on 12/10, for what appeared to be a pancreatitis. At that time, the patient had a chest x-ray which was only notable for possible early small bilateral pleural effusions. She reports subsequent to that visit, she was recently admitted to [facility] where she was diagnosed with pneumonia. She was treated and released from there on p.o. Levaquin. She reports that she was continuing to have shortness of breath and a productive cough with discolored sputum. She did not feel like she was getting any better and potentially worse, so she presented back to the emergency department here today. She also reports some chest discomfort. It is central, radiates to the axilla bilaterally. Her pain is as high as 10/10. The patient also notes that her symptoms of shortness of breath are exacerbated when trying to lie flat or with exertion. REVIEW OF SYSTEMS: The patient has had some chills and difficulty with sleep and reports significant weight loss. The check of the records indicates that she previously weighed around 118 to 120 and today is at 106. She also reports constipation, which is a new problem for her in the past. She has been fairly regular. She reports some numbness in her feet and some polydipsia. All other systems reviewed. All pertinent positives and negatives noted in history of present illness. PAST MEDICAL HISTORY: Notable for hypertension and the previous admission here for pancreatitis, chronic alcohol abuse, chronic anemia, chronic kidney disease with her previous numbers in November with a GFR around 18 to 22. PAST SURGICAL HISTORY: Hand surgery. FAMILY HISTORY: Father had hypertension. Mother had diabetes and hypertension. SOCIAL HISTORY: The patient is a 30 pack-year smoking history. She is also a daily drinker. She states that she drinks a pint of cheap liquor every day. Denies drugs. She is not . She is full code. She reported that she has not had any problems with alcohol withdrawal during her previous admissions here or at [facility]. ALLERGIES: NONE. CURRENT MEDICATIONS: 1. Folic acid 1 mg p.o. daily. 2. Amlodipine 10 mg p.o. daily. 3. Levofloxacin 750 mg p.o. daily. PHYSICAL EXAMINATION: VITAL SIGNS: Temperature is 98.1 initially, pulse 114, respirations 24, O2 saturation 95% on room air, BP is 150/85. Currently monitor shows sinus rhythm at 94. GENERAL APPEARANCE: Age-appropriate female, very thin, in no distress. She is awake, alert, oriented, pleasant, and cooperative. HEENT: ELEAZAR. No OP lesions. TMs are normal. NECK: Supple and symmetric. HEART: Regular rate and rhythm. No murmurs, gallops, or rubs. LUNGS: Clear bilaterally, but significantly diminished on the right base. ABDOMEN: Diffusely tender with no guarding. No masses. No rebound. No hepatosplenomegaly. EXTREMITIES: No cyanosis, clubbing, or edema. No palpable cords. Pulses are present and symmetric bilaterally in lower extremities. NEUROLOGIC: The patient is awake, alert, and oriented x3. She has spontaneous movement of all extremities with no evidence of focal deficits. Cranial nerves appear to be grossly intact. SKIN: Warm and dry with no lesions or rashes. PSYCH: Normal affect and behavior. MUSCULOSKELETAL: The patient has some generalized sarcopenia. LABORATORY DATA: White count 8.4, hemoglobin 9.0, platelets 319. D-dimer is 4.71. Sodium 137, potassium 4.3, chloride 108, CO2 of 15, BUN 50, creatinine is 5.07, glucose 114, lactic acid 1.4, calcium 9.7. AST 11, ALT 7, alkaline phosphatase 90, albumin 3.8, globulins 4.0, lipase 60. Chest x-ray reveals moderate right pleural effusion, smaller left pleural effusion. EKG showed sinus tachycardia with premature supraventricular complexes. IMPRESSION AND PLAN: 1. Dyspnea, likely secondary to pleural effusions. She does not appear to be significantly hypoxic, could be related to the progressing pleural effusion which was not noted on her previous chest x-ray from December 10. This could be related to her recent diagnosis of pneumonia, could be related to her recent diagnosis of pancreatitis, could be related to underlying cancer or neoplasm as the patient has had significant weight loss as well, could also be related to congestive heart failure, although less likely. The patient did have an echo in 2011 showing some diastolic dysfunction. We will obtain a CT of the chest, noncontrast. We will also consult Pulmonology. 2. Right pleural effusion as above. We will get CT chest to determine any loculations or need for diagnostic or therapeutic thoracentesis. 3. Acute on chronic renal failure. The patient's GFR has gone down from an average around 20 to 11. She does not have prerenal indices. We will give some fluids. Recheck that in the morning. She does not have a community dietitian. We will consult one for her while she is here. She does have some acidosis associated with this, but I do not believe it warrants bicarb at this point. We will see how it responds to IV fluids. 4. Acidosis. This is not a lactic acidosis and is likely related to the renal failure. 5. Anemia. The patient has chronic anemia going back to 2011 normocytic, likely related to the chronic kidney disease. 6. Elevated D-dimer. The patient cannot have a CT angiogram because of her renal function. We will get lower extremity Dopplers. Give her a dose of heparin tonight. We will hold off on any additional pending CT scan and potential need for thoracentesis. If she does get a thoracentesis, she may get a better result from the V/Q scan at that time. 7. History of hypertension. Continue with her amlodipine. 8. Constipation, unusual for this patient's concerning in the setting of her weight loss. We will obtain hemoccults. We will give her stool softeners as well. 9. Weight loss. The patient is down from 118 to 120 in September to 106 now. Given her alcohol and tobacco abuse, this certainly needs to be the possibility of underlying malignancy through the current workup. Job ID: [id number]
[2018-12-31] MEDS: Piperacillin/Tazobactam 2.25 GM in Sodium Chloride 0.9% 100 ML IVPB SCH ×3 (05:52→21:19)
[2018-12-31 06:26] LABS: #Eosinphils 0.1 thou/uL (0.0-0.7); #Lymphocytes 0.6 thou/uL (1.20-3.40); #Monocytes 0.8 thou/uL (0.11-0.59); #Neutrophils 5.9 thou/uL (1.40-6.50); %Basophils 0.3 % (0.0-1.0); %Eosinophils 1.1 % (0.0-10.0); %Monocytes 10.1 % (0.0-10.0); %Neutrophils 80.5 % (42.0-75.0); Mean Corpuscular HGB CONC 30.9 g/dL (32.0-36.0); Mean Corpuscular Volume 93.8 fL (78.0-98.0); Mean Platelet Volume 7.9 fL (7.4-10.4); Platelet Count 295 thou/uL (130-400); RBC Distribution Width 12.7 % (11.5-14.5); Red Blood Cell (RBC) Count 2.76 mill/uL (4.20-5.40); White Blood Cell (WBC) Count 7.4 thou/uL (4.8-10.8)
[2018-12-31 06:41] LABS: Iron 28 ug/dL (50-170); Iron Binding Capacity, Total 155 mcg/dL (265-497)
[2018-12-31 06:45] LABS: ALT (SGPT) Less than 7 U/L (8-55); AST (SGOT) 9 U/L (5-34); Albumin 3.3 g/dL (3.5-5.0); Alkaline Phosphatase 51 U/L (40-150); Anion Gap 16 mmol/L (10-20); BUN (Urea Nitrogen) 49 mg/dL (9.8-20.1); Bilirubin, Total 0.3 mg/dL (0.2-1.2); Calc. Creatinine Clearance 10 mL/min (70-130); Calcium 8.8 mg/dL (7.8-10.44); Carbon Dioxide 15 mmol/L (22-29); Chloride 107 mmol/L (98-107); Estimated GFR-MDRD 11; Globulin 3.5 g/dL (2.4-3.5); Glucose 112 mg/dL (70-105); Iron 28 ug/dL (50-170); Iron Binding Capacity, Total 158 mcg/dL (265-497); Potassium 4.4 mmol/L (3.5-5.1); Protein, Total 6.8 g/dL (6.0-8.3); Sodium 134 mmol/L (136-145)
[2018-12-31 06:46] LABS: Troponin I 0.021 ng/mL (< 0.028)
--- NOTE | 2018-12-31 08:03 | ULT ---
EXAM: Bilateral lower extremity venous ultrasound HISTORY: Bilateral lower extremity pain and edema COMPARISON: None TECHNIQUE: Multiplanar grayscale and color Doppler images were obtained in a bilateral lower extremit y venous ultrasound. Spectral analysis of the Doppler waveforms were performed. FINDINGS: The bilateral common femoral vein, profunda femoral veins, superficial femoral veins, and p opliteal veins are normal in appearance without visible thrombus. These vessels demonstrate normal compression, flow, and augmentation. The bilateral posterior tibial veins, profunda femoral veins and greater saphenous veins are patent w ithout evidence of DVT. IMPRESSION: No evidence of DVT.
[2018-12-31] MEDS: Amlodipine 10 MG TAB PO SCH (08:49)
[2018-12-31] MEDS: Folic Acid 1 MG TAB PO SCH (08:50)
--- NOTE | 2018-12-31 12:52 | CT ---
EXAM: CT Chest WO Con PROVIDED CLINICAL HISTORY: Shortness of breath COMPARISON: None FINDINGS: There is a large right pleural effusion and a moderate left pleural effusion. The heart, pericardium and great vessels are suboptimally evaluated in the absence of IV contrast mat erial but demonstrate an unremarkable unenhanced CT appearance with the exception of vascular calcification. There is no evidence for thoracic lymph node enlargement with limitations due to lack of IV contrast material. There is passive atelectasis involving much of the right lower lobe and right middle lobe. No gross e ndobronchial process is seen. The trachea appears patent. There is a sub-6 mm average axial dimension noncalcified pulmonary nodule involving the right upper l obe. There is no evidence for pneumothorax. The visualized portions of the upper abdomen demonstrate a grossly unremarkable unenhanced CT appeara nce. The osseous structures demonstrate no concerning lytic or blastic lesions. IMPRESSION: 1. Large right and moderate left pleural effusions with passive atelectasis involving much of the rig ht lung. 2. Atherosclerosis.
[2018-12-31] MEDS: SODIUM CHLORIDE 0.9% IV SCH (13:00)
[2018-12-31] MEDS: SODIUM BICARBONATE IV SCH (13:00)
--- NOTE | 2018-12-31 13:16 | PDOC.HOSPP ---
- Subjective Subjective: Patient seen and examined. Patient states she is breathing better, currently on room air. Patient states she has not had any alcohol in 3 weeks. Patient does endorse prior renal problems, though states she has never been on dialysis. Denies pain. - Objective Vital Signs & Weight: Vital Signs (12 hours) Temp Pulse Resp BP BP Pulse Ox 12/31/18 08:49 100 119/74 12/31/18 08:48 97.3 F L 100 20 119/74 96 12/31/18 08:00 96 12/31/18 05:30 98.6 F 94 26 H 125/69 92 L Weight Admit Weight 106 lb 3.2 oz Weight 106 lb 3.2 oz I&O: 12/30/18 12/31/18 01/01/19 06:59 06:59 06:59 Intake Total 848 Output Total 150 Balance 698 Result Diagrams: 12/31/18 05:51 12/31/18 05:51 Radiology Reviewed by me: Yes (CT chest reviewed) ROS - Medication Medications: Active Medications Generic Name Dose Route Start Last Admin Trade Name Freq PRN Reason Stop Dose Admin Amlodipine Besylate 10 mg 12/31/18 09:00 12/31/18 08:49 Norvasc PO 10 mg DAILY SUPRIYA Administration Folic Acid 1 mg 12/31/18 09:00 12/31/18 08:50 Folvite PO 1 mg DAILY SUPRIYA Administration Piperacillin Sod/Tazobactam 100 mls @ 200 mls/hr 12/31/18 06:00 12/31/18 13: 00 Sod 2.25 gm/ Sodium Chloride IVPB 100 mls Q8HR SUPRIYA Administration Sodium Bicarbonate 25 meq/ 1,025 mls @ 75 mls/hr 12/31/18 11:30 12/31/18 13: 00 Sodium Chloride IV 1,025 mls .[id number] SUPRIYA Administration Ondansetron HCl 4 mg 12/30/18 23:54 12/31/18 00:33 Zofran Odt PO 4 mg Q6H PRN Administration Nausea/Vomiting Senna/Docusate Sodium 2 tab 12/30/18 23:17 12/31/18 05:52 Senokot S PO 2 tab BID PRN Administration Constipation - Exam ill appearing Eye: PERRL ENT: dry oral mucosa Neck: supple, symmetric, no lymphadenopathy Heart: RRR, no murmur, no gallops, no rubs Respiratory: wheezes. negative: no rales, no ronchi Respiratory - other findings: Deminished breath sounds in lower lung cantrell. Good airmovement upper lungs Gastrointestinal: soft, non-tender, normal bowel sounds, no guarding, no rigidity Extremities: no edema Extremeties - other findings: Legs are very thin with muscle wasting Neurological: CN's grossly intact, no focal deficits, no new deficit Musculoskeletal: diffuse muscle atrophy Psychiatric: A&O x 3 Hosp A/P (1) DEL (acute kidney injury) Code(s): N17.9 - ACUTE KIDNEY FAILURE, UNSPECIFIED Status: Acute (2) Acute worsening of stage 3 chronic kidney disease Code(s): N18.3 - CHRONIC KIDNEY DISEASE, STAGE 3 (MODERATE) Status: Acute (3) Hypertensive nephrosclerosis Code(s): I12.9 - HYPERTENSIVE CHRONIC KIDNEY DISEASE W STG 1-4/UNSP CHR KDNY Status: Chronic (4) Macrocytic anemia Code(s): D53.9 - NUTRITIONAL ANEMIA, UNSPECIFIED Status: Chronic (5) Noncompliance with medication regimen Code(s): Z91.14 - PATIENT'S OTHER NONCOMPLIANCE WITH MEDICATION REGIMEN Status : Chronic (6) Tobacco abuse Code(s): Z72.0 - TOBACCO USE Status: Chronic (7) Pleural effusion Code(s): J90 - PLEURAL EFFUSION, NOT ELSEWHERE CLASSIFIED Status: Acute (8) Shortness of breath Code(s): R06.02 - SHORTNESS OF BREATH Status: Acute (9) Community acquired bacterial pneumonia Code(s): J15.9 - UNSPECIFIED BACTERIAL PNEUMONIA Status: Acute (10) Alcohol abuse Code(s): F10.10 - ALCOHOL ABUSE, UNCOMPLICATED Status: Chronic - Plan old records reviewed/req Plan: Med/ tel Pulmonology consult, recommendations appreciated Nephrology consult, recommendations appreciated CT chest reviewed Large pleural effusion, will benefit for US guided thoracentsis Renal function is worse than her baseline, if does not improve the patient may require HD Avoid nephrotoxins as able No alcohol in 3 weeks, no need for withdrawal PPX Community acquired PNA, will de escalate ABX as her WBC count is normal and she is afebrile Add Duonebs PRN GI and DVT PPX
[2018-12-31] MEDS ORDERED: hydrALAZINE 20 MG/ML VIAL SLOW IVP PRN (13:26)
[2018-12-31 13:56] LABS: INR-International Normal Ratio 1.1; PTT 28.3 SEC (22.9-36.1); Prothrombin Time 14.3 SEC (12.0-14.7)
--- NOTE | 2018-12-31 14:16 | CON ---
DATE OF CONSULTATION: REASON FOR CONSULTATION: Elevated creatinine. HISTORY OF PRESENT ILLNESS: This is a very pleasant 58-year-old female, who presented to the hospital early this morning for dyspnea. The patient was noted to have pneumonia as well as pleural effusion. Her baseline creatinine had been gradually increasing and peaked to 5.07, so I was consulted. Her prior baseline was 2.0 in September of 2017. She had an abdominal pelvic CT done in November of 2018, which showed renal thickening. No hydronephrosis was noted. The patient did not receive any nephrotoxic medication. PAST MEDICAL HISTORY: Significant for hypertension; pancreatitis; alcohol abuse; chronic kidney disease, stage 4; hand surgery. FAMILY HISTORY: Negative for ESRD. ALLERGIES: REVIEWED. MEDICATIONS: Home medications list reviewed. Hospital medication list reviewed. SOCIOECONOMIC HISTORY: Has alcohol and smoking history. REVIEW OF SYSTEMS: Fifteen-point review of system was performed and was negative except for positives noted above. GENERAL: HEAD: NECK: No swelling or lumps. NOSE: No epistaxis or discharge. EYES: No diplopia or pain. RESPIRATORY: CARDIOVASCULAR: GASTROINTESTINAL: /HEAD GAUGE UNIT OPERATOR: MUSCULOSKELETAL: No joint pain. NEUROPSYCHIATRIC SYSTEMS: No suicidal ideation. No ideation. SKIN: Denies any rash or ulcer. CONSTITUTIONAL: No fever or chills. PHYSICAL EXAMINATION: CONSTITUTIONAL: On examination, the patient is awake and alert. VITAL SIGNS: Afebrile, pulse 100, breathing is 16, and blood pressure was 150/85. GENERAL APPEARANCE AND MENTAL STATUS: Fair. HEAD/NECK: Normocephalic. Atraumatic. EYES: EOMI. No deformity. EARS: Clear. No ulcers. NOSE: Intact. No lesions. MOUTH: Clear. No discharge. THROAT: Clear. No exudate. LUNGS: Clear. No crackles. CARDIAC: S1, S2. No rub. ABDOMEN: Benign. Bowel sounds positive. GENITALIA/RECTUM: Suggs absent. BACK/EXTREMITIES: Edema 0+. NEUROLOGICAL: Alert and motor intact. SKIN: LYMPHATICS: LABORATORY DATA: Reviewed. ASSESSMENT AND PLAN: 1. Chronic kidney disease, stage 5. No urgent indication for dialysis. 2. Hypertension, stable. 3. Metabolic acidosis. Continue sodium bicarbonate by mouth. 4. Anemia with chronic kidney disease. We will start the patient on Epogen. Overall, prognosis is poor. No urgent indication for dialysis. Job ID: [id number]
[2018-12-31] MEDS ORDERED: Sodium Bicarbonate 2.5 MEQ/5 ML VIAL ONE (15:01)
--- NOTE | 2018-12-31 15:53 | ULT ---
EXAM: US Thoracentesis PROVIDED CLINICAL HISTORY: Bilateral pleural effusions COMPARISON: CT thorax on 12/31/2018 TECHNIQUE: The procedure including the risks and complications were explained to the patient, and informed conse nt was obtained. Limited sonographic evaluation of the chest was obtained bilaterally from a posterior approach. There is a moderate left and large right pleural effusion present. An area overly ing the posterolateral right chest was marked, and the area was then meticulously prepped and draped in usual sterile fashion. The skin and subcutis tissues at the intended puncture site were inf iltrated with buffered 1% lidocaine for local anesthesia. A small skin incision was made. Utilizing concurrent real-time ultrasound guidance, a 19-gauge Yueh n eedle with 5 [place] sheath was advanced into the pleural fluid. After the return of fluid, the catheter was advanced, and the needle was removed. Approximately 1600 mL of brownish colored fluid wa s aspirated. Due to development of persistent coughing, the procedure was then terminated at this point, and the catheter was removed. Hemostasis was achieved with direct pressure. Follow-up ultrasou nd examination demonstrated interval decrease in the pleural fluid on the right compared to preprocedure. A dry sterile dressing was placed at catheter entry site. A follow-up inspiratory/expiratory chest x-ray was performed which demonstrated interval decrease in right pleural effusion without evidence of a pneumothorax. The patient tolerated the procedure well and without immediate complication. The patient was transported to her hospital room in stable condit ion. IMPRESSION: Technically successful ultrasound-guided right thoracentesis with aspiration of 1600 mL of brownish c olored fluid. A specimen was sent to lab as requested.
--- NOTE | 2018-12-31 16:20 | RAD ---
EXAM: XR Chest Insp/Exp PROVIDED CLINICAL HISTORY: Bilateral pleural effusions. The patient is post right thoracentesis. COMPARISON: 12/30/2018. FINDINGS: Bibasilar pleural and parenchymal lung changes are seen related to bilateral pleural effusions and as sociated atelectasis. There has been interval decrease in size of the right pleural effusion with increased aeration of the right lung compared to the prior exam secondary to interval thoracentesis. No pneumothorax is seen. The cardiac silhouette and pulmonary vasculature are within normal limits. No other interval change. IMPRESSION: 1. Interval decrease in size of the right pleural effusion. There are small to moderate-sized bilater al pleural effusions and associated atelectasis present. 2. No pneumothorax is visualized.
[2018-12-31 16:43] LABS: Fluid, pH - Pleural Fld 7.19 (7.60 - 7.66)
[2018-12-31 16:49] LABS: Pleural Fluid, Protein 5.4 g/dL
[2018-12-31 16:54] LABS: BF Color Yellow; BF RBC Count - Manual 2025 /cumm; Body Fluid Source Pleural Fluid; Clarity Hazy (Clear); RBC Background Count 0.002; Tube # EDTA; WBC Background Count 0.01; WBC/NonHematic-Auto 266 /cumm
[2018-12-31 17:50] LABS: BF Segmented Neutrophils 9 %; Cell Count Non Hematic 87 %; Lymphocytes 4 %
--- NOTE | 2018-12-31 18:14 | CON ---
DATE OF CONSULTATION: 12/31/2018 SERVICE: Pulmonary Medicine. REASON FOR CONSULTATION: Pleural effusion. HISTORY OF PRESENT ILLNESS: The patient is a 58-year-old female with past medical history significant for tobacco abuse and alcohol abuse. She has also had about a 14-pound weight loss over the past two to three months. It is unintentional. She is not having any night sweats. She is coughing and bringing up phlegm, but she denies any blood. She was in her usual state of health until a month and a half ago. At that point, she started having abdominal discomfort and presented to the hospital. She was diagnosed with acute pancreatitis. Her enzymes were marginally elevated. Ultimately, she was discharged from the hospital. Three weeks ago, she presented to [facility]. At that location, she was told she had pneumonia. There is no mention of pleural effusion. She was put on some antibiotics and discharged home, even though she indicates that her shortness of breath never got better. She never required any procedures during that stay. Ultimately, her shortness of breath progressed, she presented to our emergency department once again. At this time, there was a large pleural effusion there. She is status post thoracentesis. As soon as the fluid came off her chest, her shortness of breath improved dramatically. She denies any fevers, though she has been feeling sick and chilled for quite some time. PAST MEDICAL HISTORY: 1. Alcohol abuse. 2. Chronic kidney disease, stage 4. 3. Hypertension. PAST SURGICAL HISTORY: 1. Hand surgery. 2. Thoracentesis, postop day 0. FAMILY HISTORY: Noncontributory. SOCIAL HISTORY: She has about a 20- to 30-pack year history of smoking. She drinks on a daily basis, but indicates that she stopped about 2 to 3 months ago. She denies any illicit drugs. She has no exposure to chemicals, dust, asbestos, or tuberculosis otherwise. ALLERGIES: NO KNOWN DRUG ALLERGIES. MEDICATIONS: List of her inpatient medications have been reviewed. No specific updates were made at this time. REVIEW OF SYSTEMS: General, head, ears, eyes, nose, throat, cardiovascular, respiratory, GI, , musculoskeletal, neurologic, and skin are negative except as mentioned in the HPI. PHYSICAL EXAMINATION: VITAL SIGNS: Afebrile, pulse 62, respirations 18, and saturation 99%, currently on room air. GENERAL: The patient is awake and alert, in no apparent distress. LUNGS: Very good air entry. There is slightly decreased air entry at the right base with some dullness there. Rhonchi are present, but clear with cough. No prolonged expiratory phase or wheezing is appreciated. HEART: Normal rate and regular. ABDOMEN: Soft, nontender, and nondistended. Bowel sounds are positive. MUSCULOSKELETAL: No cyanosis or clubbing. EXTREMITIES: No pitting in the bilateral lower extremities. NEUROLOGIC: Grossly nonfocal. LABORATORY DATA: Creatinine 4.77 and downtrending, BUN 49. Basic metabolic profile and liver function studies are essentially unremarkable otherwise. Her iron studies are suggestive of iron lack. Vitamin B12 and folate fall comfortably within the normal limits. Troponin is negative x1. Lactate is unremarkable. BNP 52, LDH 148, total serum protein 6.9. INR 1.1. Hemoglobin 8.0 and gently downtrending, WBC 7.4, platelets 295,000. Neutrophils predominate on the differential. D-dimer 4.71, INR 1.1. IMAGING STUDIES: 1. Chest x-ray demonstrates interval improvement in the right-sided effusion. The left-sided effusion persists. I do not see any obvious infiltrate in that region. Cardiac silhouette is normal. 2. CT of the chest demonstrates moderate to large right-sided pleural effusion, small to moderate left-sided pleural effusion. It does take on a loculated appearance, particularly at the apex. 3. Ultrasound of the bilateral lower extremities demonstrates no evidence of venothromboembolic disease. ASSESSMENT: 1. Acute hypoxic respiratory failure, resolved, status post thoracentesis. 2. Pleural effusions, bilateral right greater than left, status post thoracentesis on the right. 3. Recent community-acquired pneumonia. DISCUSSION AND PLAN: I agree with the Zosyn. Vancomycin probably is not necessary. We can interrupt that. She actually appears to be a touch dehydrated to me. I will do a BNP to make certain that she does not have significant volume overload given her significant kidney disease. We will await the results of the thoracentesis fluid. I am particularly interested in the culture results and the cytology. Our differential remains wide, but since our fluids are already being collected, the appropriate course of action is to sit and wait. Pulmonary will follow. 70 minutes have been devoted to this patient in various activities. I personally reviewed all imaging studies and laboratory data noted within this document. For fifty percent of this time, I was interacting with the patient at the bedside or coordinating care with the care team. For the remainder of the time I was immediately available to the patient in the hospital unit. Job ID: [id number] MTDD
[2018-12-31] MEDS: Famotidine 20 MG TAB PO SCH (21:19)
[2018-12-31] MEDS ORDERED: Vancomycin HCl 750 MG in Sodium Chloride 0.9% 250 ML 250 ML IVPB SCH (22:00)
[2019-01-01] MEDS: Piperacillin/Tazobactam 2.25 GM in Sodium Chloride 0.9% 100 ML IVPB SCH ×3 (05:41→22:08)
[2019-01-01] MEDS: Amlodipine 10 MG TAB PO SCH (08:27)
[2019-01-01] MEDS: Famotidine 20 MG TAB PO SCH (08:27)
[2019-01-01] MEDS: Folic Acid 1 MG TAB PO SCH (08:27)
[2019-01-01] MEDS: SODIUM BICARBONATE IV SCH ×3 (08:28→22:27)
[2019-01-01] MEDS: SODIUM CHLORIDE 0.9% IV SCH ×3 (08:28→22:27)
[2019-01-01 10:03] LABS: Anion Gap 14 mmol/L (10-20); BUN (Urea Nitrogen) 45 mg/dL (9.8-20.1); Calc. Creatinine Clearance 12 mL/min (70-130); Calcium 8.1 mg/dL (7.8-10.44); Carbon Dioxide 15 mmol/L (22-29); Chloride 111 mmol/L (98-107); Estimated GFR-MDRD 14; Glucose 111 mg/dL (70-105); Sodium 136 mmol/L (136-145)
--- NOTE | 2019-01-01 15:34 | PDOC.HOSPP ---
- Subjective Subjective: Seen and examined. Patient feeling better. Breathing more easily after thoracentesis with 1.6L removed. Denies pain. No other acute complaints at this time. - Objective Vital Signs & Weight: Vital Signs (12 hours) Temp Pulse Resp BP Pulse Ox 01/01/19 11:51 98.7 F 85 16 112/69 93 L 01/01/19 07:22 98.8 F 91 16 111/72 95 Weight Admit Weight 106 lb 3.2 oz Weight 106 lb 1.6 oz I&O: 12/31/18 01/01/19 01/02/19 06:59 06:59 06:59 Intake Total 848 1690 Output Total 150 2425 Balance 628 -832 Result Diagrams: 12/31/18 05:51 01/01/19 09:35 Radiology Reviewed by me: Yes (CT chest) ROS - Medication Medications: Active Medications Generic Name Dose Route Start Last Admin Trade Name Freq PRN Reason Stop Dose Admin Amlodipine Besylate 10 mg 12/31/18 09:00 01/01/19 08:27 Norvasc PO 10 mg DAILY SUPRIYA Administration Folic Acid 1 mg 12/31/18 09:00 01/01/19 08:27 Folvite PO 1 mg DAILY SUPRIYA Administration Piperacillin Sod/Tazobactam 100 mls @ 200 mls/hr 12/31/18 06:00 01/01/19 15: 12 Sod 2.25 gm/ Sodium Chloride IVPB 100 mls Q8HR SUPRIYA Administration Sodium Bicarbonate 25 meq/ 1,025 mls @ 75 mls/hr 12/31/18 11:30 01/01/19 08: 28 Sodium Chloride IV 1,025 mls .[id number] SUPRIYA Administration Ondansetron HCl 4 mg 12/30/18 23:54 12/31/18 00:33 Zofran Odt PO 4 mg Q6H PRN Administration Nausea/Vomiting Senna/Docusate Sodium 2 tab 12/30/18 23:17 12/31/18 05:52 Senokot S PO 2 tab BID PRN Administration Constipation - Exam NAD, awake alert Eye: PERRL, anicteric sclera ENT: normocephalic atraumatic, dry oral mucosa Neck: supple, symmetric Heart: RRR, no murmur, no gallops Respiratory: no ronchi, normal chest expansion, wheezes Respiratory - other findings: Decreased breath sound bilateral lower lung cantrell , improved on the right Gastrointestinal: soft, non-tender, non-distended, normal bowel sounds, no palpable masses Extremities: no edema Neurological: CN's grossly intact, normal sensation to touch Musculoskeletal: generalized weakness, diffuse muscle atrophy Psychiatric: A&O x 3 Hosp A/P (1) DEL (acute kidney injury) Code(s): N17.9 - ACUTE KIDNEY FAILURE, UNSPECIFIED Status: Acute (2) Acute worsening of stage 3 chronic kidney disease Code(s): N18.3 - CHRONIC KIDNEY DISEASE, STAGE 3 (MODERATE) Status: Acute (3) Hypertensive nephrosclerosis Code(s): I12.9 - HYPERTENSIVE CHRONIC KIDNEY DISEASE W STG 1-4/UNSP CHR KDNY Status: Chronic (4) Macrocytic anemia Code(s): D53.9 - NUTRITIONAL ANEMIA, UNSPECIFIED Status: Chronic (5) Noncompliance with medication regimen Code(s): Z91.14 - PATIENT'S OTHER NONCOMPLIANCE WITH MEDICATION REGIMEN Status : Chronic (6) Tobacco abuse Code(s): Z72.0 - TOBACCO USE Status: Chronic (7) Pleural effusion Code(s): J90 - PLEURAL EFFUSION, NOT ELSEWHERE CLASSIFIED Status: Acute (8) Shortness of breath Code(s): R06.02 - SHORTNESS OF BREATH Status: Acute (9) Community acquired bacterial pneumonia Code(s): J15.9 - UNSPECIFIED BACTERIAL PNEUMONIA Status: Acute (10) Alcohol abuse Code(s): F10.10 - ALCOHOL ABUSE, UNCOMPLICATED Status: Chronic - Plan Plan: Med/ tel Pulmonology consult, recommendations appreciated Nephrology consult, recommendations appreciated S/p thoracentsis with 1.6L removed Appears to be exudative effusion based off Light's criteria. Differential diagnosis is still quite extensive. Culture of pleural fluid will hopefully point us in a direction CT chest reviewed Renal function downtrending on IV fluids Avoid nephrotoxins as able No alcohol in 3 weeks, no need for withdrawal PPX Community acquired PNA, will de escalate ABX as her WBC count is normal and she is afebrile Add Duonebs PRN GI and DVT PPX
--- NOTE | 2019-01-01 16:31 | PRG ---
DATE OF SERVICE: 01/01/2019 SUBJECTIVE: A 58-year-old female being seen for acute kidney injury. The patient denied nausea, vomiting, or chest pain. OBJECTIVE: CONSTITUTIONAL: The patient is awake and alert. VITAL SIGNS: Afebrile, pulse 85, breathing 16, and blood pressure 112/69. GENERAL APPEARANCE AND MENTAL STATUS: Fair. HEAD/NECK: Normocephalic. Atraumatic. EYES: EOMI. No deformity. EARS: Clear. No ulcers. NOSE: Intact. No lesions. MOUTH: Clear. No discharge. THROAT: Clear. No exudate. LUNGS: Clear. No crackles. CARDIAC: S1, S2. No rub. ABDOMEN: Benign. Bowel sounds positive. GENITALIA/RECTUM: Suggs absent. BACK/EXTREMITIES: Edema 0+. NEUROLOGICAL: Alert and motor intact. SKIN: LYMPHATICS: LABORATORY DATA: Labs reviewed. Labs show hemoglobin 8. Creatinine 4.0. ASSESSMENT AND RAVEN: Acute kidney injury, improving. Hypertension, stable. Anemia, stable. No indication for dialysis. Job ID: [id number]
[2019-01-02] MEDS: Piperacillin/Tazobactam 2.25 GM in Sodium Chloride 0.9% 100 ML IVPB SCH ×3 (05:41→21:44)
[2019-01-02] MEDS ORDERED: Sodium Bicarbonate 150 MEQ in Dextrose 5% in Water 1,000 ML IV SCH (07:45)
[2019-01-02] MEDS: Amlodipine 10 MG TAB PO SCH (08:25)
[2019-01-02] MEDS: Folic Acid 1 MG TAB PO SCH (08:25)
[2019-01-02] MEDS: Famotidine 20 MG TAB PO SCH (08:25)
[2019-01-02] MEDS ORDERED: Acetaminophen 325 MG TAB PO SCH (08:45)
[2019-01-02] MEDS: Ondansetron ODT 4 MG TAB PO PRN (09:37)
[2019-01-02 10:17] LABS: Anion Gap 14 mmol/L (10-20); BUN (Urea Nitrogen) 38 mg/dL (9.8-20.1); Calc. Creatinine Clearance 15 mL/min (70-130); Carbon Dioxide 16 mmol/L (22-29); Chloride 109 mmol/L (98-107); Estimated GFR-MDRD 17; Glucose 140 mg/dL (70-105); Potassium 3.8 mmol/L (3.5-5.1); Sodium 135 mmol/L (136-145)
--- NOTE | 2019-01-02 10:26 | PDOC.HOSPP ---
- Subjective Encounter Date: 01/02/19 Encounter Time: 09:22 Subjective: 58 y/o female with recent hospitalizations for pneumonia admitted with worsening SOB and chestpain as well as cough worse on lying down. Found to have bilateral pleural effusion (large R and moderate L) s/p right thoracentesis. still complaining of left sided chest pain and cough especially on lying down. Also found to have DEL. patient also admitted to weight loss of about 14 pounds since onset of illness. No fever. - Objective Vital Signs & Weight: Vital Signs (12 hours) Temp Pulse Resp BP Pulse Ox 01/02/19 08:25 89 01/02/19 08:00 98.6 F 93 18 124/76 96 01/02/19 04:00 98.2 F 89 16 132/82 94 L Weight Admit Weight 106 lb 3.2 oz Weight 116 lb 14.4 oz I&O: 01/01/19 01/02/19 01/03/19 06:59 06:59 06:59 Intake Total 1690 3295 Output Total 2425 400 Balance -735 2895 Result Diagrams: 12/31/18 05:51 01/02/19 09:49 ROS - Medication Medications: Active Medications Generic Name Dose Route Start Last Admin Trade Name Freq PRN Reason Stop Dose Admin Amlodipine Besylate 10 mg 12/31/18 09:00 01/02/19 08:25 Norvasc PO 10 mg DAILY SUPRIYA Administration Famotidine 20 mg 01/02/19 09:00 01/02/19 08:25 Pepcid PO 20 mg DAILY SUPRIYA Administration Folic Acid 1 mg 12/31/18 09:00 01/02/19 08:25 Folvite PO 1 mg DAILY SUPRIYA Administration Piperacillin Sod/Tazobactam 100 mls @ 200 mls/hr 12/31/18 06:00 01/02/19 05: 41 Sod 2.25 gm/ Sodium Chloride IVPB 100 mls Q8HR SUPRIYA Administration Sodium Bicarbonate 150 meq/ 1,150 mls @ 100 mls/hr 01/02/19 07:45 01/02/19 08 :24 Dextrose/Water IV 01/02/19 19:14 1,150 mls NOW SUPRIYA Administration Ondansetron HCl 4 mg 12/30/18 23:54 01/02/19 09:37 Zofran Odt PO 4 mg Q6H PRN Administration Nausea/Vomiting Senna/Docusate Sodium 2 tab 12/30/18 23:17 12/31/18 05:52 Senokot S PO 2 tab BID PRN Administration Constipation - Exam awake alert General - other findings: cachetic Eye: anicteric sclera ENT: normocephalic atraumatic, moist mucosa Neck: supple, no JVD Heart: RRR Respiratory: no wheezes, no ronchi Respiratory - other findings: fair air entry with some transmitted sound Gastrointestinal: soft, non-tender, non-distended, normal bowel sounds Extremities: no cyanosis, no edema Neurological: CN's grossly intact, no focal deficits Musculoskeletal: diffuse muscle atrophy Psychiatric: normal affect, A&O x 3 Hosp A/P (1) Bilateral pleural effusion Code(s): J90 - PLEURAL EFFUSION, NOT ELSEWHERE CLASSIFIED Status: Acute (2) Acute respiratory insufficiency Code(s): R06.89 - OTHER ABNORMALITIES OF BREATHING Status: Acute (3) Metabolic acidosis Code(s): E87.2 - ACIDOSIS Status: Acute (4) Cachexia Code(s): R64 - CACHEXIA Status: Acute (5) CKD (chronic kidney disease) stage 3, GFR 30-59 ml/min Code(s): N18.3 - CHRONIC KIDNEY DISEASE, STAGE 3 (MODERATE) Status: Acute (6) DEL (acute kidney injury) Code(s): N17.9 - ACUTE KIDNEY FAILURE, UNSPECIFIED Status: Acute (7) Alcohol abuse Code(s): F10.10 - ALCOHOL ABUSE, UNCOMPLICATED Status: Chronic (8) Macrocytic anemia Code(s): D53.9 - NUTRITIONAL ANEMIA, UNSPECIFIED Status: Chronic - Plan Start bicarb infusion Start supplena oral supplement Continue antibiotic.. get repeat CXR PA and lateral. Get quantiferon gold. Thoracentesis on the left contemplated. Follow renal function. Will do trial of IV iron therapy if no obvious infection in the next few days.
--- NOTE | 2019-01-02 11:12 | PRG ---
DATE OF SERVICE: 01/02/2019 SUBJECTIVE: This is a 58-year-old female, being seen for acute kidney injury. The patient denied nausea, vomiting, or chest pain. OBJECTIVE: CONSTITUTIONAL: She is awake, alert. VITAL SIGNS: Afebrile, pulse 70, breathing 16, blood pressure 124/76. GENERAL APPEARANCE AND MENTAL STATUS: Fair. HEAD/NECK: Normocephalic. Atraumatic. EYES: EOMI. No deformity. EARS: Clear. No ulcers. NOSE: Intact. No lesions. MOUTH: Clear. No discharge. THROAT: Clear. No exudate. LUNGS: Clear. No crackles. CARDIAC: S1, S2. No rub. ABDOMEN: Benign. Bowel sounds positive. GENITALIA/RECTUM: Suggs absent. BACK/EXTREMITIES: Edema 0+. NEUROLOGICAL: Alert and motor intact. SKIN: LYMPHATICS: LABORATORY DATA: Reviewed. ASSESSMENT AND PLAN: 1. Stage 4 chronic kidney disease, stable. 2. Acute kidney injury due to ATN, improved. 3. Hypertension, stable. 4. Metabolic acidosis. Start sodium bicarbonate 650 t.i.d. 5. Medication based on GFR appropriate. Job ID: [id number]
--- NOTE | 2019-01-02 11:33 | RAD ---
TWO VIEWS CHEST: HISTORY: Post thoracentesis. COMPARISON: 12/31/2018 portable film. FINDINGS: There continues to be moderate-sized bilateral pleural effusions which do not appear significantly ch anged from 12/31/2018. No evidence of pneumothorax. The upper lung cantrell are well aerated and clear . IMPRESSION: Moderate size bilateral pleural effusions with associated bibasilar atelectasis. POS: [facility]
[2019-01-02 14:36] LABS: Bilirubin Negative (Negative); Blood, Urine Trace (Negative); Clarity Clear (Clear); Glucose, Urine (Dipstick) Normal (Negative); Leukocyte Negative Leu/uL (Negative); Nitrite Negative (Negative); Protein, Urine (Dipstick) 100 mg/dL (Neg-Trace); RBC/HPF 0-3 HPF (0-3); Urobilinogen Normal mg/dL (Less than 2); WBC/HPF 0-3 HPF (0-3)
[2019-01-02 14:48] LABS: Creatinine, Urine 93.38 mg/dL (47-110)
[2019-01-02 14:50] LABS: Bacteria/HPF Rare-Few HPF (None Seen)
[2019-01-02] MEDS: Acetaminophen 325 MG TAB PO PRN (22:11)
[2019-01-03] MEDS: Piperacillin/Tazobactam 2.25 GM in Sodium Chloride 0.9% 100 ML IVPB SCH ×3 (05:31→21:15)
[2019-01-03 05:47] LABS: Anion Gap 16 mmol/L (10-20); BUN (Urea Nitrogen) 35 mg/dL (9.8-20.1); Calc. Creatinine Clearance 16 mL/min (70-130); Calcium 8.4 mg/dL (7.8-10.44); Carbon Dioxide 18 mmol/L (22-29); Chloride 106 mmol/L (98-107); Estimated GFR-MDRD 18; Glucose 109 mg/dL (70-105); Phosphorus 4.3 mg/dL (2.3-4.7); Potassium 3.4 mmol/L (3.5-5.1); Sodium 137 mmol/L (136-145)
[2019-01-03] MEDS ORDERED: Lactated Ringer's 1,000 ML IV SCH (08:30)
[2019-01-03] MEDS: Folic Acid 1 MG TAB PO SCH (08:58)
[2019-01-03] MEDS: Sodium Bicarbonate Tab 325 MG TAB PO SCH ×2 (08:58→20:30)
[2019-01-03] MEDS: Famotidine 20 MG TAB PO SCH (08:58)
[2019-01-03] MEDS: Amlodipine 10 MG TAB PO SCH (08:58)
[2019-01-03] MEDS ORDERED: Potassium Chloride 20 MEQ TAB PO SCH (11:15)
--- NOTE | 2019-01-03 11:29 | PRG ---
DATE OF SERVICE: 01/03/2019 SUBJECTIVE: A 58-year-old female being seen for acute kidney injury. The patient denied nausea, vomiting, or chest pain. OBJECTIVE: See above. The patient is awake and alert, in no acute distress. VITAL SIGNS: Pulse 93, breathing 16, blood pressure 134/83. GENERAL APPEARANCE AND MENTAL STATUS: Fair. HEAD/NECK: Normocephalic. Atraumatic. EYES: EOMI. No deformity. EARS: Clear. No ulcers. NOSE: Intact. No lesions. MOUTH: Clear. No discharge. THROAT: Clear. No exudate. LUNGS: Clear. No crackles. CARDIAC: S1, S2. No rub. ABDOMEN: Benign. Bowel sounds positive. GENITALIA/RECTUM: Suggs absent. BACK/EXTREMITIES: Edema 0+. NEUROLOGICAL: Alert and motor intact. SKIN: LYMPHATICS: LABORATORY DATA: Labs are reviewed. ASSESSMENT AND PLAN: 1. Chronic kidney disease, stage 4, stable. 2. Acute kidney injury due to acute tubular necrosis, resolved. 3. Hypertension, stable. 4. Hypokalemia. Recommend 40 mEq of potassium. 5. Metabolic acidosis. Continue sodium bicarbonate. 6. Anemia. Would recommend starting the patient on Epogen 10,000 units subcu every 2 weeks. Job ID: [id number]
[2019-01-03] MEDS ORDERED: EPOETIN ALFA-EPBX (ESRD) 10,000 UNIT/ML VIAL SC SCH (11:30)
--- NOTE | 2019-01-03 19:49 | PDOC.HOSPP ---
- Subjective Encounter Date: 01/03/19 Encounter Time: 10:47 Subjective: 58 y/o female with recent hospitalizations for pneumonia admitted with worsening SOB and chestpain as well as cough worse on lying down. Found to have bilateral pleural effusion (large R and moderate L) s/p right thoracentesis. still complaining of left sided chest pain and cough especially on lying down. Also found to have DEL. Still coughing and with left sided pleuritic pain. Remained afebrile. - Objective Vital Signs & Weight: Vital Signs (12 hours) Temp Pulse Resp BP Pulse Ox 01/03/19 17:08 98 F 91 20 159/80 H 94 L 01/03/19 17:02 91 24 H 94 L 01/03/19 13:27 98.1 F 94 16 153/90 H 94 L 01/03/19 11:26 98.4 F 89 18 119/72 95 Weight Admit Weight 106 lb 3.2 oz Weight 117 lb 9.6 oz I&O: 01/02/19 01/03/19 01/04/19 06:59 06:59 06:59 Intake Total 3295 3225 Output Total 400 1200 Balance 2895 5 Result Diagrams: 12/31/18 05:51 01/03/19 04:56 ROS - Medication Medications: Active Medications Generic Name Dose Route Start Last Admin Trade Name Freq PRN Reason Stop Dose Admin Acetaminophen 650 mg 01/02/19 08:40 01/02/19 22:11 Tylenol PO 650 mg Q4H PRN Administration FEVER/PAIN Albuterol/Ipratropium 3 ml 12/31/18 13:26 01/03/19 17:02 Duoneb NEB 3 ml [id number] PRN Administration SOB &/or Wheezing Amlodipine Besylate 10 mg 12/31/18 09:00 01/03/19 08:58 Norvasc PO 10 mg DAILY SUPRIYA Administration Epoetin Toni-epbx 10,000 unit 01/03/19 11:30 01/03/19 12:08 Retacrit SC 10,000 unit Q7D SUPRIYA Administration Famotidine 20 mg 01/02/19 09:00 01/03/19 08:58 Pepcid PO 20 mg DAILY SUPRIYA Administration Folic Acid 1 mg 12/31/18 09:00 01/03/19 08:58 Folvite PO 1 mg DAILY SUPRIYA Administration Piperacillin Sod/Tazobactam 100 mls @ 200 mls/hr 12/31/18 06:00 01/03/19 15: 47 Sod 2.25 gm/ Sodium Chloride IVPB 100 mls Q8HR SUPRIYA Administration Ondansetron HCl 4 mg 12/30/18 23:54 01/02/19 09:37 Zofran Odt PO 4 mg Q6H PRN Administration Nausea/Vomiting Senna/Docusate Sodium 2 tab 12/30/18 23:17 12/31/18 05:52 Senokot S PO 2 tab BID PRN Administration Constipation Sodium Bicarbonate 650 mg 01/03/19 09:00 01/03/19 08:58 Bicarbonate, Sodium PO 650 mg BID SUPRIYA Administration Sodium Chloride 10 ml 01/03/19 09:00 01/03/19 09:03 Flush - Normal Saline IVF 10 ml Q12HR SUPRIYA Administration - Exam awake alert General - other findings: chronically ill looking Eye: anicteric sclera ENT: normocephalic atraumatic, moist mucosa Neck: supple Heart: RRR Respiratory - other findings: decreased air entry both bases Extremities: no cyanosis, no edema Neurological: CN's grossly intact, no focal deficits Psychiatric: normal affect, A&O x 3 Hosp A/P (1) Bilateral pleural effusion Code(s): J90 - PLEURAL EFFUSION, NOT ELSEWHERE CLASSIFIED Status: Acute (2) Acute respiratory insufficiency Code(s): R06.89 - OTHER ABNORMALITIES OF BREATHING Status: Acute (3) Metabolic acidosis Code(s): E87.2 - ACIDOSIS Status: Acute (4) Cachexia Code(s): R64 - CACHEXIA Status: Acute (5) CKD (chronic kidney disease) stage 3, GFR 30-59 ml/min Code(s): N18.3 - CHRONIC KIDNEY DISEASE, STAGE 3 (MODERATE) Status: Acute (6) DEL (acute kidney injury) Code(s): N17.9 - ACUTE KIDNEY FAILURE, UNSPECIFIED Status: Acute (7) Alcohol abuse Code(s): F10.10 - ALCOHOL ABUSE, UNCOMPLICATED Status: Chronic (8) Macrocytic anemia Code(s): D53.9 - NUTRITIONAL ANEMIA, UNSPECIFIED Status: Chronic - Plan IVF fluid stopped Change to nepro oral supplement. Replete serum potassium Continue antibiotic. Get procalcitonin in the am. Awaiting quantiferon gold and pleural fluid culture Follow renal function.
[2019-01-03] MEDS: Acetaminophen 325 MG TAB PO PRN (21:17)
[2019-01-04] MEDS: Piperacillin/Tazobactam 2.25 GM in Sodium Chloride 0.9% 100 ML IVPB SCH (05:49)
[2019-01-04 06:03] LABS: Albumin 3.2 g/dL (3.5-5.0); Anion Gap 16 mmol/L (10-20); BUN (Urea Nitrogen) 31 mg/dL (9.8-20.1); BUN/Creatinine Ratio 10.92; Calc. Creatinine Clearance 18 mL/min (70-130); Calcium 8.4 mg/dL (7.8-10.44); Carbon Dioxide 19 mmol/L (22-29); Chloride 107 mmol/L (98-107); Estimated GFR-MDRD 21; Glucose 106 mg/dL (70-105); Phosphorus 4.6 mg/dL (2.3-4.7); Potassium 4.1 mmol/L (3.5-5.1); Sodium 138 mmol/L (136-145)
[2019-01-04] MEDS: Sodium Bicarbonate Tab 325 MG TAB PO SCH ×2 (08:22→20:00)
[2019-01-04] MEDS: Famotidine 20 MG TAB PO SCH (08:23)
[2019-01-04] MEDS: Folic Acid 1 MG TAB PO SCH (08:23)
[2019-01-04] MEDS: Amlodipine 10 MG TAB PO SCH (08:23)
[2019-01-04] MEDS: Acetaminophen 325 MG TAB PO PRN (08:24)
--- NOTE | 2019-01-04 09:08 | PDOC.HOSPP ---
- Subjective Encounter Date: 01/04/19 (n) Encounter Time: 09:07 Subjective: 58 y/o female with recent hospitalizations for pneumonia admitted with worsening SOB and chestpain as well as cough worse on lying down. Found to have bilateral pleural effusion (large R and moderate L) s/p right thoracentesis. still complaining of left sided chest pain and cough especially on lying down. Also found to have DEL. Still with left sided pleuritic pain and cough worse on lying down. Remained afebrile. - Objective Vital Signs & Weight: Vital Signs (12 hours) Temp Pulse Resp BP BP Pulse Ox 01/04/19 08:36 97 01/04/19 08:33 89 23 H 97 01/04/19 08:23 98 01/04/19 04:28 94 L 01/04/19 04:26 98 22 H 94 L 01/04/19 04:00 98.2 F 98 20 152/79 H 95 01/04/19 00:00 98.2 F 92 18 128/83 100 Weight Admit Weight 106 lb 3.2 oz Weight 115 lb 7 oz I&O: 01/03/19 01/04/19 01/05/19 06:59 06:59 06:59 Intake Total 3225 1000 Output Total 1200 Balance 2024 1000 Result Diagrams: 12/31/18 05:51 01/04/19 05:08 ROS - Medication Medications: Active Medications Generic Name Dose Route Start Last Admin Trade Name Freq PRN Reason Stop Dose Admin Acetaminophen 650 mg 01/02/19 08:40 01/04/19 08:24 Tylenol PO 650 mg Q4H PRN Administration FEVER/PAIN Albuterol/Ipratropium 3 ml 12/31/18 13:26 01/04/19 08:33 Duoneb NEB 3 ml [id number] PRN Administration SOB &/or Wheezing Amlodipine Besylate 10 mg 12/31/18 09:00 01/04/19 08:23 Norvasc PO 10 mg DAILY SUPRIYA Administration Epoetin Toni-epbx 10,000 unit 01/03/19 11:30 01/03/19 12:08 Retacrit SC 10,000 unit Q7D SUPRIYA Administration Famotidine 20 mg 01/02/19 09:00 01/04/19 08:23 Pepcid PO 20 mg DAILY SUPRIYA Administration Folic Acid 1 mg 12/31/18 09:00 01/04/19 08:23 Folvite PO 1 mg DAILY SUPRIYA Administration Ondansetron HCl 4 mg 12/30/18 23:54 01/02/19 09:37 Zofran Odt PO 4 mg Q6H PRN Administration Nausea/Vomiting Senna/Docusate Sodium 2 tab 12/30/18 23:17 12/31/18 05:52 Senokot S PO 2 tab BID PRN Administration Constipation Sodium Bicarbonate 650 mg 01/03/19 09:00 01/04/19 08:22 Bicarbonate, Sodium PO 650 mg BID SUPIRYA Administration Sodium Chloride 10 ml 01/03/19 09:00 01/03/19 20:31 Flush - Normal Saline IVF 10 ml Q12HR SUPRIYA Administration - Exam awake alert Eye: anicteric sclera ENT: normocephalic atraumatic Neck: supple, symmetric Heart: RRR Respiratory: no wheezes, no ronchi Respiratory - other findings: Decreased air entry both bases Gastrointestinal: soft, non-tender, non-distended, normal bowel sounds Extremities: no cyanosis, no edema Neurological: CN's grossly intact, no focal deficits Psychiatric: A&O x 3 Hosp A/P (1) Adenocarcinoma Code(s): C80.1 - MALIGNANT (PRIMARY) NEOPLASM, UNSPECIFIED Status: Acute (2) Bilateral pleural effusion Code(s): J90 - PLEURAL EFFUSION, NOT ELSEWHERE CLASSIFIED Status: Acute (3) Acute respiratory insufficiency Code(s): R06.89 - OTHER ABNORMALITIES OF BREATHING Status: Acute (4) Metabolic acidosis Code(s): E87.2 - ACIDOSIS Status: Acute (5) Cachexia Code(s): R64 - CACHEXIA Status: Acute (6) CKD (chronic kidney disease) stage 3, GFR 30-59 ml/min Code(s): N18.3 - CHRONIC KIDNEY DISEASE, STAGE 3 (MODERATE) Status: Acute (7) DEL (acute kidney injury) Code(s): N17.9 - ACUTE KIDNEY FAILURE, UNSPECIFIED Status: Acute (8) Alcohol abuse Code(s): F10.10 - ALCOHOL ABUSE, UNCOMPLICATED Status: Chronic (9) Macrocytic anemia Code(s): D53.9 - NUTRITIONAL ANEMIA, UNSPECIFIED Status: Chronic (10) Pleuritic chest pain Code(s): R07.81 - PLEURODYNIA Status: Acute - Plan Start lidocaine patch Consult oncology and palliative care SIMONA berry. Procalcitonin is corinna. Continue oral supplement Awaiting quantiferon gold and pleural fluid culture Follow renal function.
[2019-01-04] MEDS ORDERED: Lidocaine Patch Removal 1 EACH TOP SCH (09:15)
[2019-01-04] MEDS ORDERED: Lidocaine 5% Patch TD SCH (09:15)
--- NOTE | 2019-01-04 14:37 | PRG ---
DATE OF SERVICE: 01/04/2019 SERVICE: Pulmonary Medicine. INTERVAL HISTORY: The patient is doing poorly from respiratory standpoint. Oxygen saturations are okay on a little bit of oxygen, though she has increasing work of breathing and dyspnea. She is requesting that the other side get tapped now. She has not had a chest x-ray since our prior event. PHYSICAL EXAMINATION: VITAL SIGNS: Afebrile, pulse 98, blood pressure 128/79, respirations 18, and saturation 97% on 3 L nasal cannula. GENERAL: The patient is awake and alert, in no apparent distress. LUNGS: Reduced air entry bilaterally. There is decreased air entry at the right and left base, though it appears that the water level is higher on the right based on breath sounds and percussion. HEART: Normal rate. Regular. ABDOMEN: Soft, nontender, and nondistended. Bowel sounds are positive. MUSCULOSKELETAL: No cyanosis or clubbing. No pitting in bilateral lower extremities. NEUROLOGIC: Grossly nonfocal. LABORATORY DATA: WBC 7.4, hemoglobin 8.0, and platelets 295,000. ESR 86. Creatinine 2.84, continuing to improve; BUN 31. Basic metabolic profile and phosphorus are otherwise unremarkable. Albumin 3.2. Procalcitonin 0.33. CRP 9.51. Cytology on the fluid is consistent with adenocarcinoma. ASSESSMENT: 1. Acute hypoxic respiratory failure. 2. Malignant effusion, likely bilateral but proven on the right. 3. Community-acquired pneumonia, recent, status post full course of antibiotic. DISCUSSION: The patient is doing okay from respiratory standpoint. My suspicion is that she has an increased work of breathing associated with large effusions. Based on my physical exam, the patient has more fluid on the right compared to the left. As such, I will repeat a chest x-ray. If the fluid has recurred, we will request a PleurX catheter to be placed by Cardiothoracic Surgery. If on the other hand, the left-sided effusion is higher, will undergo diagnostic and therapeutic thoracentesis on the left. Pulmonary/Critical Care will follow. Job ID: [id number]
--- NOTE | 2019-01-04 14:55 | RAD ---
XR Chest 1 View Portable HISTORY: Pleural effusion, shortness of breath COMPARISON: 01/08/2019 FINDINGS: The heart size normal. There are moderate-sized bilateral pleural effusions with adjacent i nfiltrate/atelectatic changes. No pneumothoraces are seen.
--- NOTE | 2019-01-04 15:04 | CON ---
DATE OF CONSULTATION: REASON FOR CONSULTATION: Adenocarcinoma. HISTORY OF PRESENT ILLNESS: Ms. Middleton is a 58-year-old female with a past medical history of pancreatitis, chronic alcohol use, and tobacco use, who presented to the emergency room on 12/30/2018 with shortness of breath. She had bilateral pleural effusions and had a thoracentesis on the right side with removal of 1600 mL of brownish color. Cytology was positive for adenocarcinoma. The patient was last seen in this facility in November for abdominal discomfort. Her pleural effusions were noted, but small at that time. She did undergo abdominal pelvis CT noncontrast, which showed a nonspecific attenuation in the liver, low-attenuation in the tail of the pancreas. There was nonspecific retroperitoneal adenopathy. She had an enlarged heterogeneous uterus with calcified fibroids, bilateral perinephric stranding. The patient has a family history of uterine carcinoma in her mother side with 2 aunts. She denies any pelvic pain or bleeding. She does complain of mid abdominal discomfort and shortness of breath. She admits that she drinks every day and her last drink was about 3 weeks ago. She has a 30 pack-year history of smoking. PAST MEDICAL HISTORY: 1. Pancreatitis. 2. Hypertension. 3. Chronic alcohol abuse. 4. Chronic kidney disease. PAST SURGICAL HISTORY: Hand surgery. ALLERGIES: NO KNOWN DRUG ALLERGIES. HOME MEDICATIONS: 1. Norvasc 10 mg daily. 2. Folic acid daily. FAMILY HISTORY: Uterine cancer in 2 aunts; lung cancer in her father, who was a smoker. SOCIAL HISTORY: Everyday drinker, last drink 3 weeks ago. 30 pack-year history of smoking. Denies illicit drug use. REVIEW OF SYSTEMS: A 10-point review of systems is negative except for noted in HPI. PHYSICAL EXAMINATION: VITAL SIGNS: Temperature is 97.9, pulse is 89, respiratory rate is 23, BP is 128/79. She is 97% on 3 L. GENERAL: This is a well-developed, well-nourished female, in no acute distress. HEENT: Normocephalic, atraumatic. Pupils are equal and reactive to light. NECK: Supple. CV: Regular rate and rhythm. LUNGS: Diminished posterior bilaterally. ABDOMEN: Soft and nontender. There is no organomegaly. EXTREMITIES: No clubbing, cyanosis, or edema. SKIN: No rash. HEMATOLOGICAL: No petechiae or purpura. NEUROLOGICAL: Nonfocal. PSYCH: She is alert, oriented, and appropriate. PERTINENT LABS AND X-RAYS: LABORATORY RESULTS: Current WBCs are 7.4, hemoglobin 8.0, hematocrit 25.9, platelet count 295,000, she has 80% neutrophils, 8% lymphocytes. PT is 14.3, INR is 1.1, and PTT is 28.3. Sodium 138, potassium 4.1, chloride 107, CO2 is 19, BUN is 31, creatinine 2.84, calcium 8.4, phosphorus 4.6. Iron is 28, TIBC is 155, ferritin is 636, LDH is 148, bilirubin is 0.3, AST is 9, ALT is less than 7, and alkaline phosphatase is 51. Serum total protein 6.8, albumin 3.3, globulin 3.5. B12 and folic acid are normal. RADIOLOGY: Per history of present illness. ASSESSMENT: 1. Bilateral malignant pleural effusions, positive for adenocarcinoma. 2. Chronic kidney disease stage 4. 3. History of tobacco and alcohol abuse. DISCUSSION: The patient needs further imaging to look for any further masses or metastatic disease. We will have a bone scan and an abdominal pelvis CT with oral contrast while she is an inpatient. We will ask Pathology to send her cytology for further mutational testing. I have the financial counselors see the patient in anticipation of chemotherapy. This will be done in the outpatient setting. Further recommendations will be based on all these results. She can follow up with us in the outpatient setting in the next week or 2. Thank you for the consult. We will follow along with her hospital course. Job ID: [id number]
[2019-01-04 16:22] LABS: ANA Symphony (Qualitative) Negative (Negative); ANA Symphony (Quantitative) 0.3 Ratio (< 0.7 Negative); dsDNA IgG Antibody 1.6 IU/mL (<10 Negative)
[2019-01-04 16:39] LABS: Pleural Fluid, Protein 3.7 g/dL
--- NOTE | 2019-01-04 16:39 | PRG ---
DATE OF SERVICE: 01/04/2019 SUBJECTIVE: A 58-year-old female being seen for acute kidney injury. The patient denies nausea, vomiting, or chest pain. OBJECTIVE: See above. The patient is awake and alert. VITAL SIGNS: Afebrile, pulse 89, breathing 16, and blood pressure 128/79. GENERAL APPEARANCE AND MENTAL STATUS: Fair. HEAD/NECK: Normocephalic. Atraumatic. EYES: EOMI. No deformity. EARS: Clear. No ulcers. NOSE: Intact. No lesions. MOUTH: Clear. No discharge. THROAT: Clear. No exudate. LUNGS: Clear. No crackles. CARDIAC: S1, S2. No rub. ABDOMEN: Benign. Bowel sounds positive. GENITALIA/RECTUM: Suggs absent. BACK/EXTREMITIES: Edema 0+. NEUROLOGICAL: Alert and motor intact. SKIN: LYMPHATICS: LABORATORY DATA: Labs show hemoglobin 8. Creatinine 2.8. ASSESSMENT AND PLAN: 1. Acute kidney injury, chronic kidney disease, stable. 2. Hypertension, stable. 3. Anemia. We will recommend Epogen 10,000 units which I did already. No indication for dialysis. Job ID: [id number]
[2019-01-04 17:21] LABS: BF Color Yellow; Body Fluid Source Thoracentesis Fluid; Clarity Hazy (Clear); Tube # EDTA
[2019-01-04 17:22] LABS: WBC Background Count 0.01; WBC/NonHematic-Auto 247 /cumm
[2019-01-04 17:37] LABS: BF RBC Count - Manual 230 /cumm
[2019-01-04 18:15] LABS: BF Segmented Neutrophils 3 %; Cell Count Non Hematic 74 %; Eosinophils 15 %; Lymphocytes 8 %
--- NOTE | 2019-01-04 20:11 | CT ---
CT ABDOMEN NONCONTRAST CT PELVIS NONCONTRAST: DATE: 01/04/2019 HISTORY: 58-year-old female with "adenocarcinoma" of abdomen. No other information available. COMPARISON: CT abdomen and pelvis of 12/10/2018. TECHNIQUE: IV injection of iodinated contrast media: None Oral contrast media: Administered FINDINGS: The lack of IV contrast limits the evaluation. The previously demonstrated right pleural effusion has increased in volume. There is consolidation of medial base of right lower lobe with air bronchogram, a new finding since the abdominal CT of 12/10/2018. (However, these findings were present on the CT of the chest of 12/31/2018). The left pleural effusion has decreased in volume, and is small, smaller than on 12/31/2018 and 019. There is a new finding of mild nodular interstitial infiltrates in the left lower lobe, suspicious for mild left pneumonia. No pneumoperitoneum. There has been slight interval increase in volume of the small amount of free fluid within the electronic page makeup system operator ior aspect of the pelvic cavity. No hydronephrosis. No small bowel dilation. Oral contrast material has reached the rectum. No colonic diverticulitis. No abdominal aortic aneurysm. The previously described greater than 3 cm low-attenuation lesion at the tail of the pancreas remains. Nonspecific 1 cm low-density lesion at anterior aspect of left lobe of liver hepatic segment 4 a subcapsular again noted. No other hepatic abnormality. No splenomegaly. Enlarged right retrocaval upper retroperitoneal lymph nodes, unchanged. Similar but sli ghtly smaller finding on the contralateral left upper retroperitoneum. IMPRESSION: 1) low-density lesion at tail of pancreas. Possible malignant pancreatic neoplasm. Unchanged. 2) bilateral upper retroperitoneal lymphadenopathy, unchanged. 3) moderate to large right pleural effusion. 4) right lower lobe consolidation with air bronchograms, probably representing atelectasis, although pneumonia is possible. 5) mild nodular interstitial infiltrates in left lower lobe, suspicious for left-sided pneumonia. 6) slight interval increase in volume of small amount of free fluid within pelvic cavity.
[2019-01-05 05:48] LABS: #Basophils 0.1 thou/uL (0.0-0.2); #Eosinphils 0.1 thou/uL (0.0-0.7); #Lymphocytes 0.9 thou/uL (1.20-3.40); #Monocytes 0.8 thou/uL (0.11-0.59); #Neutrophils 9.8 thou/uL (1.40-6.50); %Basophils 0.6 % (0.0-1.0); %Eosinophils 0.9 % (0.0-10.0); %Lymphocytes 7.4 % (21.0-51.0); %Neutrophils 84.2 % (42.0-75.0); Hemoglobin 7.6 g/dL (12.0-16.0); Mean Corpuscular HGB CONC 31.2 g/dL (32.0-36.0); Mean Platelet Volume 8.6 fL (7.4-10.4); Platelet Count 200 thou/uL (130-400); RBC Distribution Width 13.2 % (11.5-14.5); Red Blood Cell (RBC) Count 2.62 mill/uL (4.20-5.40); White Blood Cell (WBC) Count 11.7 thou/uL (4.8-10.8)
[2019-01-05 06:14] LABS: Albumin 2.7 g/dL (3.5-5.0); Anion Gap 14 mmol/L (10-20); BUN (Urea Nitrogen) 28 mg/dL (9.8-20.1); BUN/Creatinine Ratio 10.53; Calc. Creatinine Clearance 19 mL/min (70-130); Calcium 7.8 mg/dL (7.8-10.44); Carbon Dioxide 19 mmol/L (22-29); Chloride 109 mmol/L (98-107); Estimated GFR-MDRD 22; Glucose 83 mg/dL (70-105); Phosphorus 4.2 mg/dL (2.3-4.7); Sodium 138 mmol/L (136-145)
[2019-01-05] MEDS ORDERED: Ondansetron HCl/PF 4 MG/2 ML Vial IVP PRN (09:05)
[2019-01-05] MEDS ORDERED: Midazolam HCl 2 mg/2 ml Vial ONE (09:25)
[2019-01-05] MEDS ORDERED: Fentanyl 100 MCG/2 ML VIAL ONE (09:25)
[2019-01-05] MEDS ORDERED: CEFAZOLIN 1 GM VIAL ONE (09:48)
--- NOTE | 2019-01-05 10:58 | CON ---
DATE OF CONSULTATION: HISTORY OF PRESENT ILLNESS: Ms. Middleton is a 58-year-old woman, who has had bilateral pleural effusions. Both have been tapped. She had a large volume thoracentesis from the right, which the pathology shows an adenocarcinoma. It is unknown primary. I have been asked to see her to place a right PleurX catheter. PAST MEDICAL HISTORY: 1. Alcohol abuse. 2. Chronic renal insufficiency. 3. Hypertension. PAST SURGICAL HISTORY: Hand surgery. SOCIAL HISTORY: She drinks a significant amount on a daily basis, but stopped 2 to 3 months ago. She is not using illicit drugs. ALLERGIES: NONE. MEDICATIONS: At home, none. REVIEW OF SYSTEMS: A 10-point review of system has been performed, is negative except as above. PHYSICAL EXAMINATION: GENERAL: This is a thin, elderly appearing black woman, resting comfortably in bed. VITAL SIGNS: Her height is 5 feet 3 inches and weight is 116 pounds. Temperature is 98.1, pulse is 110, and blood pressure is 119/75. LUNGS: Have diminished breath sounds over both bases. HEART: Rhythm is regular. ABDOMEN: Soft and nontender. EXTREMITIES: No edema. ASSESSMENT AND PLAN: Recurrent right malignant pleural effusion. Plan is for PleurX catheter placement. I have discussed the drainage procedure with her and she feels like she can do this at home. If not, she will have to have a Home Health consultation. Job ID: [id number]
--- NOTE | 2019-01-05 10:59 | OP ---
DATE OF PROCEDURE: 01/05/2019 PREOPERATIVE DIAGNOSIS: Recurrent malignant right pleural effusion. POSTOPERATIVE DIAGNOSIS: Recurrent malignant right pleural effusion. PROCEDURE PERFORMED: Right PleurX catheter placement. ANESTHESIA: 1% lidocaine for local with IV sedation provided by Jayme Henriquez MD. ESTIMATED BLOOD LOSS: Minimal. DESCRIPTION OF PROCEDURE: After consent was obtained, the patient was brought to the operating room and placed in supine position on the operating room table. Appropriate central line was placed. IV sedation was begun. Right chest wall was prepped and draped in usual sterile fashion. The skin and subcutaneous tissues were anesthetized with 1% lidocaine. Percutaneous access to the pleural cavity was obtained and a guidewire passed. The catheter was tunneled from the midclavicular line around to the catheter access site. The catheter access site was then dilated and a Peel-Away sheath placed. The catheter was passed through the peel-away sheath and sheath removed. The catheter was secured to the skin with silk suture. The chest was then drained and 1750 mL of pleural fluid was evacuated. The patient tolerated the procedure well, and was transferred to recovery room in stable condition. Job ID: [id number]
--- NOTE | 2019-01-05 10:59 | PRG ---
DATE OF SERVICE: SUBJECTIVE: This is a 58-year-old female, being seen for acute kidney injury. The patient denied nausea, vomiting, or chest pain. OBJECTIVE: CONSTITUTIONAL: The patient is awake and alert. VITAL SIGNS: Afebrile, pulse 99, breathing 16, blood pressure 135/75. GENERAL APPEARANCE AND MENTAL STATUS: Fair. HEAD/NECK: Normocephalic. Atraumatic. EYES: EOMI. No deformity. EARS: Clear. No ulcers. NOSE: Intact. No lesions. MOUTH: Clear. No discharge. THROAT: Clear. No exudate. LUNGS: Clear. No crackles. CARDIAC: S1, S2. No rub. ABDOMEN: Benign. Bowel sounds positive. GENITALIA/RECTUM: Suggs absent. BACK/EXTREMITIES: Edema 0+. NEUROLOGICAL: Alert and motor intact. SKIN: LYMPHATICS: LABORATORY DATA: Labs show hemoglobin is 7.6. Creatinine 2.6. ASSESSMENT AND PLAN: 1. Acute kidney injury with chronic kidney disease, stage 4, stable. 2. Acute tubular necrosis is stable. 3. Anemia. Recommend transfusion. 4. Hypertension, stable. 5. Medication based on GFR appropriate. Job ID: [id number]
[2019-01-05] MEDS: Famotidine 20 MG TAB PO SCH (11:07)
[2019-01-05] MEDS: Sodium Bicarbonate Tab 325 MG TAB PO SCH ×2 (11:08→20:17)
[2019-01-05] MEDS: Amlodipine 10 MG TAB PO SCH (11:08)
[2019-01-05] MEDS: Folic Acid 1 MG TAB PO SCH (11:08)
[2019-01-05] MEDS: Lidocaine 5% Patch TD SCH (11:09)
--- NOTE | 2019-01-05 12:46 | EKG ---
Test Reason : Blood Pressure : / mmHG Vent. Rate : 117 BPM Atrial Rate : 117 BPM P-R Int : 128 ms QRS Dur : 070 ms QT Int : 326 ms P-R-T Axes : 019 038 021 degrees QTc Int : 454 ms Sinus tachycardia with Premature supraventricular complexes Otherwise normal ECG Confirmed by ESE CUETO, DHIRAJ ([id number]), assistant editor MANA MAGANA ([id number]) on 01/05/2019 12:46:00 PM Referred By: Confirmed By:DHIRAJ MULLIGAN MD
[2019-01-05] MEDS: Acetaminophen 325 MG TAB PO PRN ×2 (13:44→20:19)
--- NOTE | 2019-01-05 13:48 | PDOC.HOSPP ---
- Subjective Encounter Date: 01/05/19 Encounter Time: 11:46 Subjective: 58 y/o female with recent hospitalizations for pneumonia admitted with worsening SOB and chestpain as well as cough worse on lying down. Found to have bilateral pleural effusion (large R and moderate L) s/p right thoracentesis. Also found to have DEL. Had PleurX catheter placement earlier today. Pleuritic chest pain is better. Remained afebrile. - Objective Vital Signs & Weight: Vital Signs (12 hours) Temp Pulse Resp BP BP BP Pulse Ox 01/05/19 11:08 101 H 136/89 01/05/19 11:00 98.1 F 101 H 18 136/89 100 01/05/19 08:00 94 L 01/05/19 07:28 98.1 F 114 H 20 119/75 94 L 01/05/19 04:00 98.3 F 99 20 135/75 94 L Weight Admit Weight 106 lb 3.2 oz Weight 116 lb I&O: 01/04/19 01/05/19 01/06/19 06:59 06:59 06:59 Intake Total 1000 4000 Balance 1000 4000 Result Diagrams: 01/05/19 05:22 01/05/19 05:22 ROS - Medication Medications: Active Medications Generic Name Dose Route Start Last Admin Trade Name Freq PRN Reason Stop Dose Admin Acetaminophen 650 mg 01/02/19 08:40 01/05/19 13:44 Tylenol PO 650 mg Q4H PRN Administration FEVER/PAIN Albuterol/Ipratropium 3 ml 12/31/18 13:26 01/04/19 08:33 Duoneb NEB 3 ml [id number] PRN Administration SOB &/or Wheezing Amlodipine Besylate 10 mg 12/31/18 09:00 01/05/19 11:08 Norvasc PO 10 mg DAILY SUPRIYA Administration Epoetin Toni-epbx 10,000 unit 01/03/19 11:30 01/03/19 12:08 Retacrit SC 10,000 unit Q7D SUPRIYA Administration Famotidine 20 mg 01/02/19 09:00 01/05/19 11:07 Pepcid PO 20 mg DAILY SUPRIYA Administration Folic Acid 1 mg 12/31/18 09:00 01/05/19 11:08 Folvite PO 1 mg DAILY SUPRIYA Administration Cefazolin Sodium/Dextrose 1 gm 50 mls @ 100 mls/hr 01/05/19 14:00 01/05/19 13 :44 / Device IVPB 01/06/19 06:29 50 mls Q8HR SUPRIYA Administration Lidocaine 1 patch 01/05/19 09:00 01/05/19 11:09 Lidoderm 5% Patch TD 1 patch DAILY SUPRIYA Administration Ondansetron HCl 4 mg 12/30/18 23:54 01/02/19 09:37 Zofran Odt PO 4 mg Q6H PRN Administration Nausea/Vomiting Senna/Docusate Sodium 2 tab 12/30/18 23:17 12/31/18 05:52 Senokot S PO 2 tab BID PRN Administration Constipation Sodium Bicarbonate 650 mg 01/03/19 09:00 01/05/19 11:08 Bicarbonate, Sodium PO 650 mg BID SUPRIYA Administration Sodium Chloride 10 ml 01/03/19 09:00 01/05/19 11:11 Flush - Normal Saline IVF 10 ml Q12HR SUPRIYA Administration - Exam awake alert General - other findings: cachetic Eye: anicteric sclera ENT: normocephalic atraumatic, moist mucosa Neck: supple, symmetric Heart: RRR Respiratory: no wheezes, no ronchi, no tachypnea Respiratory - other findings: fair air entry with some crackles. Gastrointestinal: soft, non-tender, non-distended, normal bowel sounds Extremities: no cyanosis, no edema Neurological: CN's grossly intact, no focal deficits Psychiatric: normal affect, A&O x 3 Hosp A/P (1) Adenocarcinoma Code(s): C80.1 - MALIGNANT (PRIMARY) NEOPLASM, UNSPECIFIED Status: Acute (2) Bilateral pleural effusion Code(s): J90 - PLEURAL EFFUSION, NOT ELSEWHERE CLASSIFIED Status: Acute (3) Acute respiratory insufficiency Code(s): R06.89 - OTHER ABNORMALITIES OF BREATHING Status: Acute (4) Metabolic acidosis Code(s): E87.2 - ACIDOSIS Status: Acute (5) Cachexia Code(s): R64 - CACHEXIA Status: Acute (6) DEL (acute kidney injury) Code(s): N17.9 - ACUTE KIDNEY FAILURE, UNSPECIFIED Status: Acute (7) Alcohol abuse Code(s): F10.10 - ALCOHOL ABUSE, UNCOMPLICATED Status: Chronic (8) Macrocytic anemia Code(s): D53.9 - NUTRITIONAL ANEMIA, UNSPECIFIED Status: Chronic (9) Pleuritic chest pain Code(s): R07.81 - PLEURODYNIA Status: Acute (10) CKD (chronic kidney disease) stage 4, GFR 15-29 ml/min Code(s): N18.4 - CHRONIC KIDNEY DISEASE, STAGE 4 (SEVERE) Status: Acute - Plan Further evaluation as per Hem/Onc Continue lidocaine patch Continue oral supplement Follow renal function.
[2019-01-05] MEDS ORDERED: ceFAZolin 1 GM/D5W 1 GM in Premix Bag 1 BAG IVPB SCH (14:00)
[2019-01-05] MEDS ORDERED: Lidocaine 1% PF 5 ML VIAL ONE (15:56)
[2019-01-05] MEDS ORDERED: PROPOFOL 200 MG/20 ML VIAL ONE (15:56)
[2019-01-05 17:08] LABS: Fungus Stain Final report (.)
--- NOTE | 2019-01-05 17:14 | PRG ---
DATE OF SERVICE: 01/05/2019 SERVICE: Pulmonary Medicine. INTERVAL HISTORY: The patient is doing really well from respiratory standpoint. Breathing comfortably. She has no complaints of chest discomfort, nausea, or vomiting. She underwent a right-sided PleurX catheter placement today. Additional 1500 mL of pleural fluid was removed. This has dramatically improved her breathing. Today, she is all smiles and has no dyspnea with exertion. PHYSICAL EXAMINATION: VITAL SIGNS: Afebrile, pulse 101, blood pressure 136/89, respirations 18, saturation 100% on 2 L nasal cannula. GENERAL: The patient is awake and alert, in no apparent distress. LUNGS: Wonderful air entry bilaterally. No prolonged expiratory phase or wheezing is appreciated. HEART: Normal rate, regular. ABDOMEN: Soft, nontender, and nondistended. Bowel sounds are positive. MUSCULOSKELETAL: No cyanosis or clubbing. There is no pitting in the bilateral lower extremities. NEUROLOGIC: Grossly nonfocal. LABORATORY DATA: WBC 11.7, hemoglobin 7.6 and gently downtrending, and platelets 200. Creatinine 2.66, gently downtrending; BUN 28. Basic metabolic profile and phosphorus are otherwise unremarkable. Her bicarb remains stable at 19. CRP is 9.51. Procalcitonin is unremarkable. Albumin 2.7. Repeat thoracentesis fluid is also consistent with fairly weak exudate. This was on the left. Interestingly, this fluid has 15% eosinophils. PH 7.5. ALFRED was unremarkable. ASSESSMENT: 1. Acute hypoxic respiratory failure, resolving. 2. Malignant pleural effusion, status post PleurX catheter on the right. 3. Pleural effusion, status post thoracentesis on the left, cytology pending. 4. Community-acquired pneumonia, status post full course of antibiotic. DISCUSSION AND PLAN: I will follow up the results of the thoracentesis on the left. At this point, Pulmonary will follow intermittently for the duration of the hospital stay. The patient needs to undergo training, so that family members can do these PleurX catheter exchanges at home. Critical Care will follow. Job ID: [id number] MTDD
[2019-01-05] MEDS: CEFAZOLIN 1 GM, IV Admixture Fee-Chemo 1 UNITS in Sodium Chloride 0.9% 100 ML IVPB SCH (20:17)
[2019-01-06] MEDS: CEFAZOLIN 1 GM, IV Admixture Fee-Chemo 1 UNITS in Sodium Chloride 0.9% 100 ML IVPB SCH ×3 (06:28→20:10)
[2019-01-06] MEDS: Acetaminophen 325 MG TAB PO PRN ×3 (07:36→20:10)
[2019-01-06] MEDS: Sodium Bicarbonate Tab 325 MG TAB PO SCH ×2 (07:37→20:10)
[2019-01-06] MEDS: Amlodipine 10 MG TAB PO SCH (07:37)
[2019-01-06] MEDS: Folic Acid 1 MG TAB PO SCH (07:38)
[2019-01-06] MEDS: Lidocaine 5% Patch TD SCH (07:38)
[2019-01-06] MEDS: Famotidine 20 MG TAB PO SCH (07:38)
[2019-01-06 13:33] LABS: Anion Gap 14 mmol/L (10-20); BUN (Urea Nitrogen) 35 mg/dL (9.8-20.1); Calc. Creatinine Clearance 19 mL/min (70-130); Calcium 7.8 mg/dL (7.8-10.44); Carbon Dioxide 19 mmol/L (22-29); Chloride 106 mmol/L (98-107); Estimated GFR-MDRD 21; Glucose 107 mg/dL (70-105); Potassium 3.3 mmol/L (3.5-5.1); Sodium 136 mmol/L (136-145)
--- NOTE | 2019-01-06 13:38 | PRG ---
DATE OF SERVICE: 01/06/2019 SUBJECTIVE: A 58-year-old female, being seen for acute kidney injury. The patient denies any nausea, vomiting, or chest pain. OBJECTIVE: CONSTITUTIONAL: The patient is awake and alert. VITAL SIGNS: Afebrile, pulse 80, breathing 16, and blood pressure 117/72. GENERAL APPEARANCE AND MENTAL STATUS: Fair. HEAD/NECK: Normocephalic. Atraumatic. EYES: EOMI. No deformity. EARS: Clear. No ulcers. NOSE: Intact. No lesions. MOUTH: Clear. No discharge. THROAT: Clear. No exudate. LUNGS: Clear. No crackles. CARDIAC: S1, S2. No rub. ABDOMEN: Benign. Bowel sounds positive. GENITALIA/RECTUM: Suggs absent. BACK/EXTREMITIES: Edema 0+. NEUROLOGICAL: Alert and motor intact. SKIN: LYMPHATICS: LABORATORY DATA: Hemoglobin 7.6 and creatinine 2.6. Today's labs are pending. ASSESSMENT AND PLAN: Anemia, the patient might need transfusion. Job ID: [id number]
--- NOTE | 2019-01-06 16:49 | PDOC.HOSPP ---
- Subjective Subjective: Seen and examined. Patient with some discomfort at Pleurx cath site, requesting pain medications. Discussed all current findings. Patient wants to discuss further options with oncology. Palliative care input will be appreciated. - Objective Vital Signs & Weight: Vital Signs (12 hours) Temp Pulse Resp BP BP Pulse Ox 01/06/19 11:37 99.5 F 88 17 117/72 97 01/06/19 08:00 100 01/06/19 07:37 91 137/81 01/06/19 07:15 98.4 F 91 17 137/81 100 Weight Admit Weight 106 lb 3.2 oz Weight 116 lb 6.4 oz I&O: 01/05/19 01/06/19 01/07/19 06:59 06:59 06:59 Intake Total 4000 2100 Balance 4000 2100 Result Diagrams: 01/05/19 05:22 01/06/19 13:04 Radiology Reviewed by me: Yes (CXR on 01/04) ROS - Medication Medications: Active Medications Generic Name Dose Route Start Last Admin Trade Name Freq PRN Reason Stop Dose Admin Acetaminophen 650 mg 01/02/19 08:40 01/06/19 14:15 Tylenol PO 650 mg Q4H PRN Administration FEVER/PAIN Albuterol/Ipratropium 3 ml 12/31/18 13:26 01/04/19 08:33 Duoneb NEB 3 ml [id number] PRN Administration SOB &/or Wheezing Amlodipine Besylate 10 mg 12/31/18 09:00 01/06/19 07:37 Norvasc PO 10 mg DAILY SUPRIYA Administration Epoetin Toni-epbx 10,000 unit 01/03/19 11:30 01/03/19 12:08 Retacrit SC 10,000 unit Q7D SUPRIYA Administration Famotidine 20 mg 01/02/19 09:00 01/06/19 07:38 Pepcid PO 20 mg DAILY SUPRIYA Administration Folic Acid 1 mg 12/31/18 09:00 01/06/19 07:38 Folvite PO 1 mg DAILY SUPRIYA Administration Cefazolin Sodium 1 gm/ 100 mls @ 200 mls/hr 01/05/19 22:00 01/06/19 14:30 Miscellaneous Medication 1 IVPB 100 mls units/ Sodium Chloride Q8HR SUPRIYA Administration Lidocaine 1 patch 01/05/19 09:00 01/06/19 07:38 Lidoderm 5% Patch TD 1 patch DAILY SUPRIYA Administration Ondansetron HCl 4 mg 12/30/18 23:54 01/02/19 09:37 Zofran Odt PO 4 mg Q6H PRN Administration Nausea/Vomiting Senna/Docusate Sodium 2 tab 12/30/18 23:17 12/31/18 05:52 Senokot S PO 2 tab BID PRN Administration Constipation Sodium Bicarbonate 650 mg 01/03/19 09:00 01/06/19 07:37 Bicarbonate, Sodium PO 650 mg BID SUPRIYA Administration Sodium Chloride 10 ml 01/03/19 09:00 01/06/19 07:38 Flush - Normal Saline IVF 10 ml Q12HR SUPRIYA Administration - Exam NAD, awake alert Eye: PERRL Eye - other findings: EOMI Neck: supple, symmetric, no JVD Heart: RRR, no murmur, no gallops, no rubs Respiratory: no rales, no ronchi, wheezes (Faint wheezing in lower lung cantrell) Gastrointestinal: soft, non-tender, non-distended, normal bowel sounds Extremities: no edema Skin: normal turgor, no rashes Neurological: no weakness, no focal deficits Musculoskeletal: generalized weakness Psychiatric: normal affect, A&O x 3 Hosp A/P (1) DEL (acute kidney injury) Code(s): N17.9 - ACUTE KIDNEY FAILURE, UNSPECIFIED Status: Acute (2) Acute worsening of stage 3 chronic kidney disease Code(s): N18.3 - CHRONIC KIDNEY DISEASE, STAGE 3 (MODERATE) Status: Acute (3) Hypertensive nephrosclerosis Code(s): I12.9 - HYPERTENSIVE CHRONIC KIDNEY DISEASE W STG 1-4/UNSP CHR KDNY Status: Chronic (4) Macrocytic anemia Code(s): D53.9 - NUTRITIONAL ANEMIA, UNSPECIFIED Status: Chronic (5) Noncompliance with medication regimen Code(s): Z91.14 - PATIENT'S OTHER NONCOMPLIANCE WITH MEDICATION REGIMEN Status : Chronic (6) Tobacco abuse Code(s): Z72.0 - TOBACCO USE Status: Chronic (7) Pleural effusion Code(s): J90 - PLEURAL EFFUSION, NOT ELSEWHERE CLASSIFIED Status: Acute (8) Shortness of breath Code(s): R06.02 - SHORTNESS OF BREATH Status: Acute (9) Community acquired bacterial pneumonia Code(s): J15.9 - UNSPECIFIED BACTERIAL PNEUMONIA Status: Acute (10) Alcohol abuse Code(s): F10.10 - ALCOHOL ABUSE, UNCOMPLICATED Status: Chronic - Plan Plan: Med/ tel Pulmonology consult, recommendations appreciated Nephrology consult, recommendations appreciated Oncology consult, recommendations appreciated S/p Pleurx cath S/p thoracentsis with 1.6L removed Appears to be exudative effusion based off Light's criteria, may be secondary to malignancy CT chest reviewed Renal function improving Avoid nephro toxins as able No alcohol in 3 weeks, no need for withdrawal PPX Community acquired PNA, on ABX Duonebs PRN GI and DVT PPX
[2019-01-07 04:59] LABS: Hemoglobin 6.7 g/dL (12.0-16.0)
[2019-01-07 05:18] LABS: Anion Gap 13 mmol/L (10-20); BUN (Urea Nitrogen) 36 mg/dL (9.8-20.1); Calc. Creatinine Clearance 18 mL/min (70-130); Calcium 7.6 mg/dL (7.8-10.44); Carbon Dioxide 19 mmol/L (22-29); Chloride 108 mmol/L (98-107); Estimated GFR-MDRD 21; Glucose 96 mg/dL (70-105); Potassium 3.4 mmol/L (3.5-5.1); Sodium 137 mmol/L (136-145)
[2019-01-07] MEDS: CEFAZOLIN 1 GM, IV Admixture Fee-Chemo 1 UNITS in Sodium Chloride 0.9% 100 ML IVPB SCH ×3 (05:32→21:33)
[2019-01-07] MEDS: Sodium Bicarbonate Tab 325 MG TAB PO SCH ×2 (08:22→21:29)
[2019-01-07] MEDS: Lidocaine 5% Patch TD SCH (08:22)
[2019-01-07] MEDS: Amlodipine 10 MG TAB PO SCH (08:22)
[2019-01-07] MEDS: Folic Acid 1 MG TAB PO SCH (08:22)
[2019-01-07] MEDS: Famotidine 20 MG TAB PO SCH (08:23)
--- NOTE | 2019-01-07 10:04 | PDOC.PALCO ---
Palliative Care Consult - Consult Details Requesting Physician: Dr Lowe Reason for Consult: assistance with communication prognosis/disease, complex decision-making Family Members Present: None - Pertinent HPI 58 year old female who was admitted December 10 for what was thought to be pancreatitis, with subsequent admission to [facility] for pneumonia and treated and discharged with po Levaquin. Ms Middleton continued to have shortness of breath, productive cough and progressive increase in severity of symptoms leading to her presentation to the emergency room at [facility] for evaluation. Patient reports no alleviating factors and shortness of breath is worse with reclined position. Evaluation in emergency room identified pleural effusions, diastolic dysfunction, renal failure, anemia, and decrease in weight of 14 lbs over 90 days. Patient was admitted and further evaluation identified malignancy. - Pertinent PMH Hypertension, pancreatitis, chronic alcohol abuse, chronic anemia, chronic renal disease - Social History Smoking Status: Current every day smoker Smoking: cigarettes Alcohol Use: heavy, daily Drug Use History: none Living Situation: independent - Medications MAR Reviewed: Yes - Allergies Allergies/Adverse Reactions: Allergies Allergy/AdvReac Type Severity Reaction Status Date / Time No Known Drug Allergies Allergy Verified 12/30/18 20:19 - Objective Vital Signs: Vital Signs - Most Recent Temp Pulse Resp BP Pulse Ox 98.7 F 86 20 137/83 98 01/07/19 07:57 01/07/19 07:57 01/07/19 07:57 01/07/19 07:57 01/07/19 07:57 Palliative Performance Scale: 50 - Physical Exam Constitutional: NAD Deviation from normal: withdrawn, HEENT: moist MMs, EOMI Deviation from normal: slight jaundice sclera Deviation from normal: plurex drain to right, clear drainage, slight adventicous lung sounds Cardiovascular: RRR Deviation from normal: tendernes to right abdomen Musculoskeletal: pulses present Neurological: moves all 4 limbs Deviation from normal: withdrawn, flat, depressed Deviation from normal: fair turgor, significant recent weight loss - Problem List (1) Palliative care encounter Code(s): Z51.5 - ENCOUNTER FOR PALLIATIVE CARE Current Visit: Yes Status: Acute (2) Bilateral pleural effusion Code(s): J90 - PLEURAL EFFUSION, NOT ELSEWHERE CLASSIFIED Current Visit: Yes Status: Acute (3) Cachexia Code(s): R64 - CACHEXIA Current Visit: Yes Status: Acute (4) Alcohol abuse Code(s): F10.10 - ALCOHOL ABUSE, UNCOMPLICATED Current Visit: Yes Status: Chronic (5) Tobacco abuse Code(s): Z72.0 - TOBACCO USE Current Visit: No Status: Chronic - Plan/Recommendations Plan: Discussed past tobacco use with patient, states she feels she is through "withdrawls" at this time. Also discussed alcohol use, mentioned recovery and educated patient that if she was interested I could reach out to women in recovery to visit with her as she will need support to manage current health status and if attempting to not use alcohol this may be optimal. Patient states she is not certain if she wants to do chemo and may just want to "go home'. Will continue to build relationship with patient to discuss treatment options. [80] minutes spent on this encounter with >50% of the time in counseling and coordination of care. Thank you for this very appropriate consult.
--- NOTE | 2019-01-07 10:44 | OP ---
DATE OF PROCEDURE: 01/04/2019 SERVICE: Pulmonary Medicine. PROCEDURE PERFORMED: Left-sided pleural drainage with catheter insertion under ultrasound guidance. CONSENT: Risks and benefits of the procedure were discussed with the patient at bedside. All questions were answered and alternative options were explained. MEDICATIONS USED: Lidocaine 1% without epinephrine, 8 mL. PREOPERATIVE DIAGNOSES: 1. Bilateral pleural effusion, malignant on the right. 2. Acute hypoxic respiratory failure. POSTOPERATIVE DIAGNOSES: 1. Bilateral pleural effusion, malignant on the right. 2. Acute hypoxic respiratory failure. DESCRIPTION OF PROCEDURE: Time-out was performed by the procedure team and patient. The patient was positively identified using name and date of . The procedure site was marked. Vital sign monitoring was accomplished by noninvasive hemodynamic monitoring, pulse oximetry, and telemetry. In the seated position, the left posterior hemothorax was examined using ultrasound probe. The diaphragm and pleural fluid were easily identified. The skin was prepped and draped in sterile fashion and anesthetized with 1% lidocaine without epinephrine. A finder needle was inserted in the space with return of cloudy yellow pleural fluid. A pleural drainage catheter was inserted in the same location. A total quantity of 1400 mL of pleural fluid was withdrawn by syringe pump technique. A sample was sent for analysis. Evacuation was terminated because the fluid stopped coming. At that point, estimated pleural pressures, measured by manometry, was -18 cm of pleural fluid. The intact catheter was withdrawn on exhalation and a sterile dressing was applied. The patient had stable vitals throughout the entire procedure. ESTIMATED BLOOD LOSS: 2 mL. COMPLICATIONS: None. Job ID: [id number]
[2019-01-07] MEDS: oxyCODONE/Acetaminophen 5 mg/325 mg Tablet PO PRN ×2 (11:33→21:30)
--- NOTE | 2019-01-07 11:41 | PRG ---
DATE OF SERVICE: 01/07/2019 SUBJECTIVE: Patient was seen and examined at bedside and overnight events noted. Patient denies any shortness of breath or chest pain or palpitation. No history of nausea or vomiting or diarrhea or fever or chills or cramps. OBJECTIVE: GENERAL: This is a well-built female, in no apparent distress. VITAL SIGNS: Temperature 98.7. Heart rate 86. Respiratory rate 22. Blood pressure 137/83. HEENT: Atraumatic, normocephalic. Oral mucosa is moist NECK: Supple. CARDIOVASCULAR: S1, S2 heard. Rate and rhythm regular. RESPIRATORY: Clear to auscultation. GASTROINTESTINAL: Abdomen is soft. MUSCULOSKELETAL: No tenderness. No edema. DERMATOLOGIC: No skin rash. NEUROLOGIC: Alert and awake and oriented X3. No focal neurologic deficits. Moving all the extremities. PSYCHIATRIC: Mood and affect normal. LABORATORY DATA: Potassium 3.4, BUN is 36, and creatinine is 2.8. ASSESSMENT AND PLAN: 1. Chronic kidney disease, stage 4. We will monitor. 2. Edema, controlled. 3. Hypertension. 4. Anemia, rule out any bleed and monitor and transfuse p.r.n. No acute indication for dialysis. Avoid nephrotoxins. Renally dose medications. We will follow. Job ID: [id number]
--- NOTE | 2019-01-07 13:18 | PRG ---
DATE OF SERVICE: 01/07/2019 SERVICE: Pulmonary Medicine. INTERVAL HISTORY: The patient is breathing comfortably without difficulty. No complaints of chest discomfort, nausea, or vomiting. She is not having any fevers or chills. There were no significant overnight events. PHYSICAL EXAMINATION: VITAL SIGNS: Afebrile, pulse 86, blood pressure 137/83, respirations 20, and saturations 98% on 2 L nasal cannula. GENERAL: The patient is awake and alert, in no apparent distress. LUNGS: Very good air entry with no prolonged expiratory phase or wheezing present. HEART: Normal rate, regular. ABDOMEN: Soft, nontender, and nondistended. Bowel sounds are positive. MUSCULOSKELETAL: No cyanosis or clubbing. There is no pitting in the bilateral lower extremities. NEUROLOGIC: Grossly nonfocal. LABORATORY DATA: Hemoglobin 6.7, hematocrit 21. Creatinine 2.81 and roughly stable. Potassium 3.4. ASSESSMENT: 1. Acute hypoxic respiratory failure, resolved. 2. Malignant pleural effusion, status post PleurX on the right. 3. Pleural effusion on the left, status post thoracentesis (cytology pending). 4. Community-acquired pneumonia, status post antibiotic course. DISCUSSION AND PLAN: From a purely respiratory perspective, I believe that the patient is stable for transition out of the hospital. She will need close followup with Oncology. Pulmonary will continue to follow intermittently if she remains in-house. Job ID: [id number]
--- NOTE | 2019-01-07 13:18 | NM ---
Whole body bone scan: 01/07/2019 COMPARISON: None HISTORY: Adenocarcinoma TECHNIQUE: Following the intravenous administration of 30.1 mCi technetium 99m labeled MDP, anterior and posterior whole-body imaging as well as focused lateral imaging of the calvarium obtained. FINDINGS: There is physiologic activity in the region of the urinary bladder and kidneys. There is a focus of abnormal radiotracer activity overlying the right aspect of the calvarium. No rib lesions, spine lesions, pelvic lesions, or long bone lesions. IMPRESSION: Focal area of abnormal radiotracer activity overlying the right aspect of the calvarium. This could represent a metastatic focus. Recommend contrast enhanced brain MRI.
[2019-01-07 14:41] VITALS: BMI 20.6
--- NOTE | 2019-01-07 17:09 | PDOC.MOPN ---
Interval History: feeling better, breathing easier - Vital Signs Vital Signs: Vital Signs (12 hours) Temp Pulse Resp BP Pulse Ox 01/07/19 08:00 98 01/07/19 07:57 98.7 F 86 20 137/83 98 Weight Admit Weight 106 lb 3.2 oz Weight 116 lb 6.4 oz - Physical Exam General: Alert, Oriented x3, No acute distress HEENT: Atraumatic, PERRLA, EOMI, Mucous membr. moist/pink Lungs: Other Cardiovascular: Regular rate Abdomen: Normal bowel sounds Extremities: No clubbing, No cyanosis, No edema, Normal pulses, No tenderness/ swelling Skin: No rashes, No breakdown, No significant lesion Neurological: Normal gait, Normal speech, Strength at 5/5 X4 ext, Normal tone, Sensation intact, Cranial nerves 3-12 NL, Reflexes 2+ Psych/Mental Status: Mental status NL - Labs Result Diagrams: 01/07/19 04:19 01/07/19 04:19 Lab results: Laboratory Results - last 24 hr 01/07/19 06:08: Blood Type B POSITIVE, Antibody Screen NEGATIVE, Crossmatch See Detail 01/07/19 04:19: Hgb 6.7 L, Hct 21.1 L 01/07/19 04:19: Sodium 137, Potassium 3.4 L, Chloride 108 H, Carbon Dioxide 19 L , Anion Gap 13, BUN 36 H, Creatinine 2.81 H, Estimated GFR (MDRD) 21, Glucose 96 , Calcium 7.6 L 01/04/19 15:00: Fluid Diff Path Review Status: lab reviewed by me A/P - Problem (1) Adenocarcinoma Current Visit: Yes Code(s): C80.1 - MALIGNANT (PRIMARY) NEOPLASM, UNSPECIFIED Status: Acute (2) Bilateral pleural effusion Current Visit: Yes Code(s): J90 - PLEURAL EFFUSION, NOT ELSEWHERE CLASSIFIED Status: Acute - Plan Plan: CEA, C19-9 Follow-up Monday01/14/19 11:00
--- NOTE | 2019-01-07 22:37 | PDOC.HOSPP ---
- Subjective Subjective: Feels ok. Has no specific complaints. - Objective Vital Signs & Weight: Vital Signs (12 hours) Temp Pulse Resp BP Pulse Ox 01/07/19 20:00 98.7 F 93 20 151/89 H 94 L Weight Admit Weight 106 lb 3.2 oz Weight 116 lb 6.4 oz I&O: 01/06/19 01/07/19 01/08/19 06:59 06:59 06:59 Intake Total 2100 1700 350 Balance 2100 1700 350 Result Diagrams: 01/07/19 04:19 01/07/19 04:19 ROS - Medication Medications: Active Medications Generic Name Dose Route Start Last Admin Trade Name Freq PRN Reason Stop Dose Admin Acetaminophen 650 mg 01/02/19 08:40 01/06/19 20:10 Tylenol PO 650 mg Q4H PRN Administration FEVER/PAIN Albuterol/Ipratropium 3 ml 12/31/18 13:26 01/04/19 08:33 Duoneb NEB 3 ml [id number] PRN Administration SOB &/or Wheezing Amlodipine Besylate 10 mg 12/31/18 09:00 01/07/19 08:22 Norvasc PO 10 mg DAILY SUPRIYA Administration Epoetin Toni-epbx 10,000 unit 01/03/19 11:30 01/03/19 12:08 Retacrit SC 10,000 unit Q7D SUPRIYA Administration Famotidine 20 mg 01/02/19 09:00 01/07/19 08:23 Pepcid PO 20 mg DAILY SUPRIYA Administration Folic Acid 1 mg 12/31/18 09:00 01/07/19 08:22 Folvite PO 1 mg DAILY SUPRIYA Administration Cefazolin Sodium 1 gm/ 100 mls @ 200 mls/hr 01/05/19 22:00 01/07/19 21:33 Miscellaneous Medication 1 IVPB 100 mls units/ Sodium Chloride Q8HR SUPRIYA Administration Lidocaine 1 patch 01/05/19 09:00 01/07/19 08:22 Lidoderm 5% Patch TD 1 patch DAILY SUPRIYA Administration Ondansetron HCl 4 mg 12/30/18 23:54 01/02/19 09:37 Zofran Odt PO 4 mg Q6H PRN Administration Nausea/Vomiting Oxycodone/Acetaminophen 1 tab 01/06/19 13:29 01/07/19 21:30 Percocet 5/325 PO 1 tab Q4H PRN Administration Moderate to Severe Pain (6-10) Senna/Docusate Sodium 2 tab 12/30/18 23:17 12/31/18 05:52 Senokot S PO 2 tab BID PRN Administration Constipation Sodium Bicarbonate 650 mg 01/03/19 09:00 01/07/19 21:29 Bicarbonate, Sodium PO 650 mg BID SUPRIYA Administration Sodium Chloride 10 ml 01/03/19 09:00 01/07/19 21:30 Flush - Normal Saline IVF 10 ml Q12HR SUPRIYA Administration - Exam NAD, awake alert Heart: RRR, no murmur, no gallops, no rubs, normal peripheral pulses Respiratory: CTAB, no wheezes, no rales Gastrointestinal: soft, non-tender, non-distended, normal bowel sounds, no palpable masses, no hepatomegaly, no splenomegaly, no bruit Skin: normal turgor Neurological: CN's grossly intact Psychiatric: normal behavior, A&O x 3 Psychiatric - other findings: Flat affect Hosp A/P (1) Adenocarcinoma Code(s): C80.1 - MALIGNANT (PRIMARY) NEOPLASM, UNSPECIFIED Status: Acute (2) Bilateral pleural effusion Code(s): J90 - PLEURAL EFFUSION, NOT ELSEWHERE CLASSIFIED Status: Acute (3) CKD (chronic kidney disease) stage 4, GFR 15-29 ml/min Code(s): N18.4 - CHRONIC KIDNEY DISEASE, STAGE 4 (SEVERE) Status: Acute (4) Cachexia Code(s): R64 - CACHEXIA Status: Acute (5) Community acquired bacterial pneumonia Code(s): J15.9 - UNSPECIFIED BACTERIAL PNEUMONIA Status: Acute (6) Alcohol abuse Code(s): F10.10 - ALCOHOL ABUSE, UNCOMPLICATED Status: Chronic (7) Tobacco abuse Code(s): Z72.0 - TOBACCO USE Status: Chronic (8) Anemia Code(s): D64.9 - ANEMIA, UNSPECIFIED Status: Acute - Plan Doing ok overall. Has the PleurX. Transfused. Will recheck the hgb in am. If the hgb is ok she will likely be able to discharge in am. She is thinking that she will not pursue chemotherapy.
[2019-01-08] MEDS: CEFAZOLIN 1 GM, IV Admixture Fee-Chemo 1 UNITS in Sodium Chloride 0.9% 100 ML IVPB SCH ×2 (06:16→12:39)
[2019-01-08 07:21] LABS: #Eosinphils 0.1 thou/uL (0.0-0.7); #Lymphocytes 0.7 thou/uL (1.20-3.40); #Monocytes 0.7 thou/uL (0.11-0.59); #Neutrophils 8.4 thou/uL (1.40-6.50); %Basophils 0.2 % (0.0-1.0); %Eosinophils 1.3 % (0.0-10.0); %Lymphocytes 6.9 % (21.0-51.0); %Monocytes 6.6 % (0.0-10.0); Hemoglobin 11.3 g/dL (12.0-16.0); Mean Corpuscular HGB CONC 32.8 g/dL (32.0-36.0); Mean Corpuscular Hemoglobin 29.9 pg (27.0-31.0); Mean Corpuscular Volume 91.2 fL (78.0-98.0); Mean Platelet Volume 8.9 fL (7.4-10.4); Platelet Count 182 thou/uL (130-400); Red Blood Cell (RBC) Count 3.79 mill/uL (4.20-5.40); White Blood Cell (WBC) Count 9.9 thou/uL (4.8-10.8)
[2019-01-08 07:43] LABS: Anion Gap 17 mmol/L (10-20); BUN (Urea Nitrogen) 33 mg/dL (9.8-20.1); Calc. Creatinine Clearance 21 mL/min (70-130); Calcium 7.7 mg/dL (7.8-10.44); Carbon Dioxide 18 mmol/L (22-29); Chloride 109 mmol/L (98-107); Estimated GFR-MDRD 25; Glucose 78 mg/dL (70-105); Potassium 3.9 mmol/L (3.5-5.1); Sodium 140 mmol/L (136-145)
[2019-01-08] MEDS: Amlodipine 10 MG TAB PO SCH (09:19)
[2019-01-08] MEDS: Sodium Bicarbonate Tab 325 MG TAB PO SCH (09:19)
[2019-01-08] MEDS: Famotidine 20 MG TAB PO SCH (09:19)
[2019-01-08] MEDS: Folic Acid 1 MG TAB PO SCH (09:19)
[2019-01-08] MEDS: Lidocaine 5% Patch TD SCH (09:19)
[2019-01-08] MEDS: oxyCODONE/Acetaminophen 5 mg/325 mg Tablet PO PRN (09:25)
[2019-01-08 10:09] VITALS: BP 128/81; TEMP 98.5
--- NOTE | 2019-01-08 14:28 | PDOC.PALPN ---
Palliative Progress Note - Subjective Patient awake, alert, oriented. Disengaged, lacks eye contact. ROS: 10 point review is negative as per patient - Objective Vital Signs: Vital Signs - Most Recent Temp Pulse Resp BP Pulse Ox 98.5 F 99 18 128/81 94 L 01/08/19 08:00 01/08/19 08:00 01/08/19 11:00 01/08/19 08:00 01/08/19 11:00 - Physical Exam Constitutional: NAD HEENT: moist MMs, EOMI Respiratory: unlabored breathing Deviation from normal: Plurex drain to right thoracic region Cardiovascular: RRR Gastrointestinal: soft Deviation from normal: mild tenderness, patient denies however slight guarding Musculoskeletal: no edema Neurological: moves all 4 limbs Deviation from normal: Flat affect - Assessment (1) Palliative care encounter Code(s): Z51.5 - ENCOUNTER FOR PALLIATIVE CARE Status: Acute (2) Bilateral pleural effusion Code(s): J90 - PLEURAL EFFUSION, NOT ELSEWHERE CLASSIFIED Status: Acute (3) Cachexia Code(s): R64 - CACHEXIA Status: Acute (4) Alcohol abuse Code(s): F10.10 - ALCOHOL ABUSE, UNCOMPLICATED Status: Chronic (5) Tobacco abuse Code(s): Z72.0 - TOBACCO USE Status: Chronic - Plan Plan: Dr Asif communicated that patient was going home and not certain of chemotherapy. Given information on maintaining plurex drain. Patient given Palliative Care contact information and informed that if she needed assistance or information to please call. [40] minutes spent on this encounter with >50% of the time in counseling and coordination of care.
--- NOTE | 2019-01-08 15:18 | PRG ---
DATE OF SERVICE: SUBJECTIVE: Patient was seen and examined at bedside and overnight events noted. Patient denies any shortness of breath or chest pain or palpitation. No history of nausea or vomiting or diarrhea or fever or chills or cramps. OBJECTIVE: GENERAL: This is a well-built female, in no apparent distress. VITAL SIGNS: Temperature 98.5. Heart rate 99. Respiratory rate 20. Blood pressure 128/81. HEENT: Atraumatic, normocephalic. Oral mucosa is moist NECK: Supple. CARDIOVASCULAR: S1, S2 heard. Rate and rhythm regular. RESPIRATORY: Clear to auscultation. GASTROINTESTINAL: Abdomen is soft. MUSCULOSKELETAL: No tenderness. No edema. DERMATOLOGIC: No skin rash. NEUROLOGIC: Alert and awake and oriented X3. No focal neurologic deficits. Moving all the extremities. PSYCHIATRIC: Mood and affect normal. LABORATORY DATA: Potassium is 3.9, BUN is 33, and creatinine is 2.4. ASSESSMENT AND PLAN: 1. Acute kidney injury on chronic kidney stage 4, stable. 2. Edema, controlled. 3. Hypertension. 4. Anemia. 5. Plan to monitor renal function closely. Job ID: [id number]
--- NOTE | 2019-01-09 11:40 | DIS ---
DATE OF ADMISSION: 12/30/2018 DATE OF DISCHARGE: 01/08/2019 DISCHARGE DIAGNOSES: 1. Malignant adenocarcinoma, likely lung primary. 2. Acute kidney injury. 3. Acute on chronic stage 3 kidney disease. 4. Hypertensive renal disease. 5. Anemia. 6. Medication noncompliance. 7. Pleural effusion. 8. Community-acquired pneumonia. 9. Dyspnea. 10. History of alcohol abuse. 11. History of tobacco abuse. HISTORY OF PRESENT ILLNESS: This patient is a 58-year-old female with a history of tobacco and alcohol abuse, who presented via the emergency department complaining of some shortness of breath. Reported that she had recently been diagnosed with pneumonia at [facility], had been treated with oral antibiotics but subsequently was having some shortness of breath and chest pain and presented back to the emergency department. There, she had evidence of significant pleural effusion on imaging. The patient had also been recently diagnosed with pancreatitis and was concerned that the patient could have effusion from pancreatitis or from pneumonia or underlying malignancy. The patient had acute on chronic renal failure as well. She was started on some IV fluids and admitted to the hospital. HOSPITAL COURSE: The patient had a CT scan of the chest, which revealed a large right and moderate left pleural effusion with atelectasis. She could not get a CTA because of the renal disease and the large effusions, so that a lower extremity Doppler was obtained which revealed no evidence of DVT. She was seen in consultation by Pulmonology and she underwent ultrasound-guided thoracentesis of the right lung revealing 1600 mL of brownish fluid. The patient had this fluid sent for appropriate studies including a cytology, which ultimately did reveal adenocarcinoma. The patient had an echocardiogram obtained to ensure there was no evidence of underlying failure, which appeared largely normal other than the pleural effusion. She had some evidence of underlying infiltrate on followup chest x-rays and was treated for pneumonia. She had a reaccumulation of her fluid and ultimately, had a PleurX catheter placed on the right. She was seen in consultation by Oncology because of the adenocarcinoma concerning for possible lung or abdominal source. Subsequent studies included a CT of the abdomen and pelvis revealing a low-density lesion in the tail of the pancreas, which could represent malignancy, bilateral upper retroperitoneal lymphadenopathy, right-sided pleural effusion. She had subsequent bone scan obtained, which revealed some abnormal radiotracer activity overlying the right aspect of the calvarium, which could potentially represent malignancy as well as metastatic disease. The patient was then seen by Palliative Care as well. The patient felt that she was not going to be interested in pursuing chemotherapy treatment for whatever the underlying malignancy proved to be. She was stable for discharge and encouraged to have outpatient followup with Oncology and the patient was hesitant to consider that, but tried to encourage her to have that followup appointment and have the conversation with Oncology Team, even if she chose not to pursue chemotherapy, she could at least go through them to set up some form of hospice. The patient's renal function improved very slightly over time and at time of discharge, her GFR was up to 25. Also of note, she had labs ordered at the end of her hospital stay and her CEA came back at 1.85, but the CA-19-9 was elevated at 4820. PHYSICAL EXAMINATION: VITAL SIGNS: On the day of discharge, temperature was 98.5, pulse 99, respirations 18, O2 saturation 94% on room air, BP 128/81. GENERAL: She is awake, alert, and oriented. HEART: Regular rate and rhythm. LUNGS: Diminished bilaterally with no significant rales noted. She did have the right PleurX catheter in place. ABDOMEN: Benign. EXTREMITIES: No edema other than some mild generalized muscle wasting, otherwise normal. DISPOSITION: The patient is discharged home. ACTIVITY: As tolerated. DIET: She will stay on a renal diet. DISCHARGE MEDICATIONS: She will be on: 1. Tylenol No.3. 2. Pepcid. 3. Senokot. 4. She will remain on Norvasc 10 mg daily and folic acid 1 mg daily. FOLLOWUP: She is to follow up with Dr. Christ Wells on 01/14/2019, at 10:45 am. She should follow up with Dr. Awad and a PCP of her choice as well as Dr. Zach Rubio. The patient can return to the hospital should she have any problems prior to her followup. TIME SPENT: Total time in discharge activities including greater than 50% of the time spent [id number] encounter with the patient was 41 minutes. Job ID: [id number]
== END 2019-01-08 12:54 | disposition home or self-care (01) | DRG 180 ==
LOC: ERS 17:01 → 2NO 19:41 → T4-A 01-03 12:54
PROVIDERS: ADMIT Family Medicine; ATTEND Family Medicine
PROC: 0W993ZZ Drainage of Right Pleural Cavity, Percutaneous Approach (ICD-10-PCS; principal; 2018-12-31)
PROC: 0W9B3ZZ Drainage of Left Pleural Cavity, Percutaneous Approach (ICD-10-PCS; 2019-01-04)
PROC: 0W9930Z Drainage of Right Pleural Cavity with Drainage Device, Percutaneous Approach (ICD-10-PCS; 2019-01-05)
DX: C78.2 Secondary malignant neoplasm of pleura (principal); J96.01 Acute respiratory failure with hypoxia; N17.0 Acute kidney failure with tubular necrosis; J18.9 Pneumonia, unspecified organism; N18.4 Chronic kidney disease, stage 4 (severe); E87.2 Acidosis; R64 Cachexia; C34.90 Malignant neoplasm of unspecified part of unspecified bronchus or lung; Z51.5 Encounter for palliative care; J91.0 Malignant pleural effusion; D63.1 Anemia in chronic kidney disease; F17.210 Nicotine dependence, cigarettes, uncomplicated; I12.9 Hypertensive chronic kidney disease with stage 1 through stage 4 chronic kidney disease, or unspecified chronic kidney disease; K59.00 Constipation, unspecified; F10.10 Alcohol abuse, uncomplicated; E86.0 Dehydration; D53.9 Nutritional anemia, unspecified; E87.6 Hypokalemia; Z79.899 Other long term (current) drug therapy; Z68.20 Body mass index [BMI] 20.0-20.9, adult; Z91.14 Patient's other noncompliance with medication regimen
CPT/HCPCS: 36415; 36430; 71045; 71046; 71250; 74176; 76942; 78306; 80048; 80053; 80069; 81001; 82150; 82274; 82378; 82570; 82607; 82728; 82746; 82945; 83540; 83550; 83605; 83615; 83690; 83880; 83986; 84145; 84155; 84156; 84157; 84300; 84484; 84540; 85014; 85018; 85025; 85060; 85379; 85610; 85652; 85730; 86038; 86140; 86225; 86301; 86480; 86850; 86900; 86901; 87070; 87116; 87205; 87206; 88112; 88305; 88313; 88341; 88342; 89051; 93005; 93306; 93970; 94640; 96365; A9503; C1729; J0690; J1644; J2001; J2250; J2270; J2543; J2704; J3010; J3370; J3490; J7050; J7070; J7620; P9016; Q0162; Q5105

== ENCOUNTER 2019-01-17 09:41 | Inpatient (IN) | payer SELFPAY ==
--- NOTE | 2019-01-17 10:05 | RAD ---
XR Chest 1 View Portable HISTORY: Dyspnea COMPARISON: 01/04/2019 FINDINGS: There is been interval placement of a right-sided chest tube with interval significant impr ovement in the right pleural effusion. No pneumothorax is seen. A large left pleural effusion is present. There are mild infiltrates in the right lung base.
[2019-01-17 10:18] LABS: #Basophils 0.1 thou/uL (0.0-0.2); #Eosinphils 0.1 thou/uL (0.0-0.7); #Lymphocytes 1.1 thou/uL (1.20-3.40); #Monocytes 0.9 thou/uL (0.11-0.59); #Neutrophils 11.3 thou/uL (1.40-6.50); %Basophils 0.6 % (0.0-1.0); %Eosinophils 0.8 % (0.0-10.0); %Lymphocytes 8.3 % (21.0-51.0); %Neutrophils 83.3 % (42.0-75.0); Hemoglobin 12.3 g/dL (12.0-16.0); Mean Corpuscular HGB CONC 31.7 g/dL (32.0-36.0); Mean Corpuscular Hemoglobin 29.4 pg (27.0-31.0); Mean Corpuscular Volume 92.7 fL (78.0-98.0); Mean Platelet Volume 8.8 fL (7.4-10.4); Platelet Count 401 thou/uL (130-400); RBC Distribution Width 14.8 % (11.5-14.5); Red Blood Cell (RBC) Count 4.18 mill/uL (4.20-5.40); White Blood Cell (WBC) Count 13.5 thou/uL (4.8-10.8)
[2019-01-17 10:42] LABS: ALT (SGPT) Less than 7 U/L (8-55); AST (SGOT) 10 U/L (5-34); Alkaline Phosphatase 67 U/L (40-150); Anion Gap 23 mmol/L (10-20); BUN (Urea Nitrogen) 50 mg/dL (9.8-20.1); Bilirubin, Total 0.3 mg/dL (0.2-1.2); CK (CPK) 34 U/L (29-168); Calc. Creatinine Clearance 0 mL/min (70-130); Calcium 8.6 mg/dL (7.8-10.44); Carbon Dioxide 15 mmol/L (22-29); Chloride 108 mmol/L (98-107); Estimated GFR-MDRD 14; Globulin 3.6 g/dL (2.4-3.5); Glucose 117 mg/dL (70-105); Lipase 27 U/L (8-78); Potassium 5.5 mmol/L (3.5-5.1); Protein, Total 6.6 g/dL (6.0-8.3); Sodium 140 mmol/L (136-145)
[2019-01-17] MEDS ORDERED: Piperacillin/Tazobactam 4.5 GM VIAL ONE (10:54)
[2019-01-17 11:02] LABS: CKMB 2.5 ng/mL (0-6.6)
[2019-01-17] MEDS ORDERED: Bisacodyl 10 MG SUPP PR PRN (14:11)
[2019-01-17] MEDS ORDERED: Acetaminophen 650 MG Suppository PR PRN (14:11)
[2019-01-17] MEDS ORDERED: Acetaminophen 325 MG TAB PO PRN (14:11)
[2019-01-17] MEDS ORDERED: Furosemide 20 MG/2 ML VIAL ONE (14:31)
--- NOTE | 2019-01-17 15:12 | HP ---
PRIMARY CARE PROVIDER: Abisai Ford MD CHIEF COMPLAINT: Shortness of breath. HISTORY OF PRESENT ILLNESS: Ms. Middleton is a pleasant 58-year-old lady, who was seen at [facility] on January 17, 2019. She was hospitalized at this facility from December 30 to January 08 of this year for malignant adenocarcinoma, likely lung primary and acute on chronic stage 3 kidney disease. During that hospitalization, she was seen by Oncology Service. During that hospitalization, she did not wish to undergo chemotherapy. During that hospitalization, she was also found to have a large right-sided pleural effusion and had PleurX catheter placed. She reports that she has been feeling short of breath since leaving the hospital. She reports that it is progressively getting worse. She is not short of breath at rest and therefore, presented to the emergency room. She denies any fevers or chills. She reports left-sided chest discomfort. She reports cough with clear sputum. REVIEW OF SYSTEMS: All systems were reviewed and found to be negative, except for the pertinent positives mentioned above. PAST MEDICAL HISTORY: Hypertension; chronic stage 3 kidney disease; hypertensive renal disease; anemia; malignant adenocarcinoma, likely lung primary; right-sided pleural effusion, status post PleurX catheter. SURGICAL HISTORY: Right-sided PleurX catheter and hand surgery. FAMILY HISTORY: Hypertension in her father, diabetes and hypertension in her mother. SOCIAL HISTORY: The patient reports that she drinks alcohol on a daily basis. She reports that she has not had any problems with alcohol withdrawal during her previous hospitalizations. She reports smoking one pack of cigarettes a day. She denies any recreational drug use. ALLERGIES: NO KNOWN DRUG ALLERGIES. CURRENT MEDICATIONS: As dictated by Dr. Asif in his history and physical note dated January 09, 2019. PHYSICAL EXAMINATION: GENERAL: On examination, Ms. Middleton is awake and alert, not in acute distress. VITAL SIGNS: Blood pressure is 136/88, pulse 106, respiratory rate 24, and oxygen saturation 91% on 4 L. She is afebrile. EYES: No scleral icterus, no conjunctival pallor. ENT: Moist mucosal membranes. No oropharyngeal erythema or exudates. NECK: Supple, nontender, trachea is midline. RESPIRATORY: Accessory muscles of breathing are active. Chest wall movements are diminished on the left. She is dull to percussion on the left, normal on the right. She has absent breath sounds over the left base. CARDIOVASCULAR: S1 and S2 are heard, tachycardic and regular. Peripheral pulses palpable. NEUROLOGIC: Cranial nerves 2 through 12 intact, deep tendon reflexes 2+. MUSCULOSKELETAL: Power is 5/5 in all 4 extremities. ABDOMEN: Soft, nontender, bowel sounds are heard. LYMPHATIC: No cervical lymphadenopathy. SKIN: No rashes or subcutaneous nodules. PSYCHIATRIC: Flat affect, the patient is oriented to person, place, and time. LABORATORY DATA: Ms. Middleton' labs and investigations were reviewed. I reviewed her electrocardiogram, which shows sinus tachycardia, no ST changes to suggest an acute coronary syndrome. I reviewed her chest x-ray, which shows a large left-sided pleural effusion. She has leukocytosis with 13,500 white cells, of which 83.3% are neutrophils. Hemoglobin is normal. Platelet count is mildly elevated at 401,000. She has normal sodium, elevated potassium of 5.5, elevated creatinine of 3.97, creatinine was 3.59 on January 14, 2019, she has elevated blood urea nitrogen of 50. Troponin-I is indeterminate at 0.104. Albumin is decreased at 3.0. LFTs are unremarkable, otherwise. Lipase is normal. BNP is normal at 97. Lactic acid is normal at 1.4. ASSESSMENT AND PLAN: Ms. Middleton is a pleasant 58-year-old lady, who was seen at [facility] on January 17, 2019. Her problem list includes: 1. Acute hypoxic respiratory failure: Ms. Middleton is presenting with acute hypoxic respiratory failure, with oxygen saturations in the 80s on presentation. It is most likely secondary to large left-sided pleural effusion. She will be admitted to the hospital for further management. 2. Left pleural effusion. Pulmonology Service being consulted for possible thoracentesis and help with further management. 3. Acute on chronic stage 4 kidney disease: She is presenting with acute on chronic stage 4 kidney disease. Her potassium is also elevated at 5.5. Nephrology Service will be consulted for management of hyperkalemia and acute on chronic renal failure. 4. Hypertension: We will continue amlodipine, monitor vital signs, and titrate antihypertensives as needed. 5. Adenocarcinoma, most likely lung: We will consult Oncology Service for opinion and help with management. The patient was supposed to have seen oncologist three days ago. She is unable to tell me whether she kept that appointment. Many thanks for allowing me to participate in your patient's care. Please feel free to contact me with any questions or concerns. LEVEL OF RISK: High. LEVEL OF COMPLEXITY: High. Job ID: [id number]
[2019-01-17 17:21] LABS: Anion Gap 24 mmol/L (10-20); BUN (Urea Nitrogen) 48 mg/dL (9.8-20.1); Calc. Creatinine Clearance 0 mL/min (70-130); Carbon Dioxide 14 mmol/L (22-29); Chloride 107 mmol/L (98-107); Estimated GFR-MDRD 14; Glucose 139 mg/dL (70-105); Potassium 4.7 mmol/L (3.5-5.1); Sodium 140 mmol/L (136-145)
[2019-01-17] MEDS: Heparin 5,000 UNITS/ML VIAL SC SCH ×2 (17:23→20:50)
[2019-01-17] MEDS: Nicotine 21 MG PATCH TD SCH (17:24)
[2019-01-17] MEDS: methylPREDNISolone Sod Succ 40 MG VIAL IVP SCH ×2 (17:24→23:46)
--- NOTE | 2019-01-17 17:56 | RAD ---
RADIOGRAPH CHEST 1 VIEW: DATE: 01/17/2019 TIME: 5:31 PM HISTORY: 58-year-old female status post paracentesis COMPARISON: 01/17/2019 9:57 AM FINDINGS: The previously demonstrated large left pleural effusion is now small. There is no pneumothorax. No pu lmonary edema. Contralateral small to moderate-sized right pleural effusion with underlying airspace opacities at ri ght lower lung zone. Right-sided chest tube again noted. IMPRESSION: 1. Drainage of the majority of the volume of the previously large left pleural effusion without pneum othorax. 2. Small to moderate-sized contralateral right pleural effusion.
--- NOTE | 2019-01-17 23:03 | CON ---
DATE OF CONSULTATION: HISTORY OF PRESENT ILLNESS: Vy Middleton is a 58-year-old cachectic female, who was just recently discharged from the hospital. She presents with increasing shortness of breath and cough. She was seen by Dr. Powell and underwent thoracentesis of pleural effusion, it revealed adenocarcinoma. It is unclear what has transpired, but she is unaware of the diagnosis when talking to her. Denies any fever or chills. Denies any chest pain. PAST MEDICAL HISTORY: Tobacco abuse, COPD, bilateral pleural effusion, lung cancer diagnosis, renal failure, alcohol abuse, hypertension, and right-sided pleural cath placement recently. PREVIOUS SURGERIES: As outlined. Bilateral thoracentesis and pleural catheter. HOME MEDICATIONS: Pepcid, Norvasc, and Tylenol. REVIEW OF SYSTEMS: Otherwise negative. PHYSICAL EXAMINATION: VITAL SIGNS: Sats are 90% on room air, respirations 18, temperature 98, and blood pressure 120/81. CHEST: Decreased breath sounds, left lung one-third. Right lung unremarkable. CARDIAC: Sinus tach. ABDOMEN: Soft. No masses. LABORATORY DATA: Creatinine is 3 and BUN is 50. White count 13,000. IMAGING: X-ray shows left-sided pleural effusion and a pleural catheter in the right pleural space. Large left pleural effusion, status post previous thoracentesis. Right pleural catheter. IMPRESSION: Respiratory failure, metastatic adenocarcinoma, pleural effusion, renal failure, tobacco abuse, and substance abuse. At this stage, prognosis is grave. It is unclear whether she has been seen by Oncology as yet regarding treatment. Started nebs steroids. She probably needs a pleural catheter in the left chest. Consultation note, 70 minutes, 50% direct patient care. Job ID: [id number]
[2019-01-18 05:14] LABS: #Lymphocytes 0.3 thou/uL (1.20-3.40); #Monocytes 0.1 thou/uL (0.11-0.59); #Neutrophils 10.5 thou/uL (1.40-6.50); %Basophils 0.3 % (0.0-1.0); %Eosinophils 0.1 % (0.0-10.0); %Lymphocytes 2.3 % (21.0-51.0); %Monocytes 0.6 % (0.0-10.0); %Neutrophils 96.6 % (42.0-75.0); Mean Corpuscular Hemoglobin 29.2 pg (27.0-31.0); Mean Corpuscular Volume 91.3 fL (78.0-98.0); Mean Platelet Volume 8.6 fL (7.4-10.4); Platelet Count 307 thou/uL (130-400); RBC Distribution Width 14.5 % (11.5-14.5); Red Blood Cell (RBC) Count 3.42 mill/uL (4.20-5.40); White Blood Cell (WBC) Count 10.9 thou/uL (4.8-10.8)
[2019-01-18 05:35] LABS: Anion Gap 19 mmol/L (10-20); BUN (Urea Nitrogen) 51 mg/dL (9.8-20.1); Calc. Creatinine Clearance 11 mL/min (70-130); Carbon Dioxide 16 mmol/L (22-29); Chloride 107 mmol/L (98-107); Estimated GFR-MDRD 13; Glucose 136 mg/dL (70-105); Potassium 4.3 mmol/L (3.5-5.1); Sodium 138 mmol/L (136-145)
[2019-01-18] MEDS: methylPREDNISolone Sod Succ 40 MG VIAL IVP SCH (05:46)
--- NOTE | 2019-01-18 08:27 | OP ---
DATE OF PROCEDURE: 01/17/2019 INDICATIONS FOR PROCEDURE: I was called to see the patient in an emergency basis that she is having more difficulty breathing. Her saturations were apparently in the 80s mid. Therefore, it was felt she needed emergent thoracentesis left-sided. DESCRIPTION OF PROCEDURE: Thorax was cleaned with chlorhexidine. She was sitting upright in bed. The ninth scar space was infiltrated with lidocaine all the way to the pleura and about 20 mL of dark yellow fluid was removed. Thereafter, using an 8-Indonesian catheter, a total of about 1600 mL of fluid was removed without any difficulty. The patient tolerated the procedure well. She is now being placed on high-flow. She has been given neb treatments and steroids. Condition has improved. She will be transferred to the MICU on a BiPAP. Job ID: [id number]
[2019-01-18] MEDS ORDERED: Lactated Ringer's 1,000 ML IV SCH (09:15)
[2019-01-18] MEDS: Amlodipine 10 MG TAB PO SCH (09:33)
[2019-01-18] MEDS: Folic Acid 1 MG TAB PO SCH (09:33)
[2019-01-18] MEDS: Heparin 5,000 UNITS/ML VIAL SC SCH ×3 (09:34→21:11)
[2019-01-18] MEDS: Famotidine 20 MG TAB PO SCH (09:34)
[2019-01-18] MEDS ORDERED: Sodium Bicarbonate Tab 325 MG TAB PO SCH (09:45)
[2019-01-18] MEDS: Sodium Chloride 0.45% 1,000 ML IV SCH (09:46)
--- NOTE | 2019-01-18 10:02 | CON ---
DATE OF CONSULTATION: 01/17/2019 TIME OF SERVICE: 2:00 p.m. REASON FOR CONSULTATION: Hyperkalemia. HISTORY OF PRESENT ILLNESS: This is a well-known 58-year-old female, who presented to the hospital with increasing dyspnea. The patient has had hyperkalemia and acute kidney injury with a history of lung cancer. The patient at this time denies no chest pain, nausea, or vomiting. The patient's creatinine has increased from 3 to 4 and her potassium is increased. PAST MEDICAL HISTORY: Significant for COPD, lung cancer, alcohol abuse, hypertension, right pleural catheter. SOCIAL HISTORY: No alcohol or drug abuse. FAMILY HISTORY: Negative for ESRD. ALLERGIES: REVIEWED. MEDICATIONS: Home medication list reviewed. REVIEW OF SYSTEMS: A 15-point review of system was performed, negative except for positive noted above. GENERAL: HEAD: NECK: No swelling or lumps. NOSE: No epistaxis or discharge. EYES: No diplopia or pain. 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 NEUROPSYCHIATIC SYSTEMS: No suicidal ideation. No ideation. SKIN: Denies any rash or ulcer. CONSTITUTIONAL: No fever or chills. PHYSICAL EXAMINATION: GENERAL: The patient is awake and alert. VITAL SIGNS: Afebrile, pulse 75, breathing 16, and blood pressure was 114/70. GENERAL APPEARANCE AND MENTAL STATUS: Fair. HEAD/NECK: Normocephalic. Atraumatic. EYES: EOMI. No deformity. EARS: Clear. No ulcers. NOSE: Intact. No lesions. MOUTH: Clear. No discharge. THROAT: Clear. No exudate. LUNGS: Clear. No crackles. CARDIAC: S1, S2. No rub. ABDOMEN: Benign. Bowel sounds positive. GENITALIA/RECTUM: Suggs absent. BACK/EXTREMITIES: Edema 0+. NEUROLOGICAL: Alert and motor intact. SKIN: LYMPHATICS: LABORATORY DATA: Reviewed. ASSESSMENT: 1. Stage 5 chronic kidney disease with acute tubular necrosis due to cardiorenal syndrome. Stop IV fluids. Start Lasix. 2. Respiratory failure. 3. Hyperkalemia. We will give Kayexalate. If the potassium does not improve, we will consider dialysis. The patient refused dialysis at this time. 4. Congestive heart failure. Overall prognosis is poor. Please note, this is a repeat dictation from January 17. Job ID: [id number]
--- NOTE | 2019-01-18 10:40 | PRG ---
DATE OF SERVICE: 01/18/2019 SUBJECTIVE: This is a 58-year-old female, being seen for acute kidney injury. The patient denies any nausea, vomiting, or chest pain. OBJECTIVE: CONSTITUTIONAL: The patient is awake and alert. VITAL SIGNS: Afebrile, pulse 75, breathing 16, blood pressure 114/70. GENERAL APPEARANCE AND MENTAL STATUS: Fair. HEAD/NECK: Normocephalic. Atraumatic. EYES: EOMI. No deformity. EARS: Clear. No ulcers. NOSE: Intact. No lesions. MOUTH: Clear. No discharge. THROAT: Clear. No exudate. LUNGS: Clear. No crackles. CARDIAC: S1, S2. No rub. ABDOMEN: Benign. Bowel sounds positive. GENITALIA/RECTUM: Suggs absent. BACK/EXTREMITIES: Edema 0+. NEUROLOGICAL: Alert and motor intact. SKIN: LYMPHATICS: LABORATORY DATA: Reviewed. ASSESSMENT AND PLAN: 1. Chronic kidney disease stage 5. No indication for dialysis. 2. Hypertension, stable. 3. Anemia, stable. 4. Acute tubular necrosis due to cardiorenal syndrome. 5. Overall prognosis is poor. Job ID: [id number]
--- NOTE | 2019-01-18 11:33 | CON ---
DATE OF CONSULTATION: REASON FOR CONSULTATION: Elevated creatinine and hyperkalemia. HISTORY OF PRESENT ILLNESS: This is a very pleasant 58-year-old female, presented to the hospital with a potassium of 5.5 and a creatinine of 3.97. She has had a history of elevated creatinine. The patient denies any nausea, vomiting, or chest pain. The patient has dyspnea on minimal exertion. PAST MEDICAL HISTORY: Significant for hypertension; pancreatitis; alcohol abuse; chronic kidney disease, stage 4; multiple episodes of acute kidney injury; and history of lung carcinoma with bilateral pleural effusions. Social History was reviewed. MEDICATIONS: Home medications list, reviewed. Hospital medications list, reviewed. REVIEW OF SYSTEMS: A 15-point review of systems was performed and was negative except for positives noted above. GENERAL: HEAD: NECK: No swelling or lumps. NOSE: No epistaxis or discharge. EYES: No diplopia or pain. 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 NEUROPSYCHIATIC SYSTEMS: No suicidal ideation. No ideation. SKIN: Denies any rash or ulcer. CONSTITUTIONAL: No fever or chills. PHYSICAL EXAMINATION: GENERAL: The patient is awake and alert. VITAL SIGNS: Afebrile, pulse 70, breathing 16, blood pressure was 150/70. GENERAL APPEARANCE AND MENTAL STATUS: Fair. HEAD/NECK: Normocephalic. Atraumatic. EYES: EOMI. No deformity. EARS: Clear. No ulcers. NOSE: Intact. No lesions. MOUTH: Clear. No discharge. THROAT: Clear. No exudate. LUNGS: Clear. No crackles. CARDIAC: S1, S2. No rub. ABDOMEN: Benign. Bowel sounds positive. GENITALIA/RECTUM: Suggs absent. BACK/EXTREMITIES: Edema 0+. NEUROLOGICAL: Alert and motor intact. SKIN: LYMPHATICS: LABORATORY DATA: Show potassium 5.5, creatinine 3.97. ASSESSMENT: 1. Acute kidney injury with chronic kidney disease due to acute tubular necrosis. I recommended dialysis. The patient declined. 2. Hyperkalemia . The patient has refused dialysis. 3. Congestive heart failure. We will give Lasix 20 mg. If that does not work, we will give 40 mg IV. All the risks versus benefits of all the treatments were discussed. Overall prognosis remains poor. Job ID: [id number]
[2019-01-18 12:05] VITALS: BMI 17.4
--- NOTE | 2019-01-18 13:57 | PDOC.HOSPP ---
- Subjective Encounter Date: 01/18/19 Encounter Time: 08:20 Subjective: Pt seen for followup re: pleural effusion. breathing better. No fevers. - Objective Vital Signs & Weight: Vital Signs (12 hours) Temp Pulse Resp BP Pulse Ox 01/18/19 11:21 97.5 F L 99 22 H 118/66 99 01/18/19 10:39 100 01/18/19 10:38 88 16 01/18/19 09:33 86 01/18/19 07:53 97.5 F L 86 20 114/70 100 01/18/19 07:05 100 01/18/19 07:03 90 16 01/18/19 04:00 97.6 F 86 16 111/73 100 Weight Admit Weight 103 lb 4.8 oz Weight 98 lb 1.6 oz Result Diagrams: 01/18/19 05:00 01/18/19 05:00 Additional Labs: Labs and MARs reviewed by [facility] Hospitalist ROS - Review of Systems Respiratory: reports: SOB with excertion Cardiovascular: denies: chest pain, palpitations, orthopnea, paroxysmal noc. dyspnea, edema, light headedness Gastrointestinal: denies: nausea, vomitting, abdominal pain, diarrhea, constipation, melena, hematochezia - Medication Medications: Active Medications Generic Name Dose Route Start Last Admin Trade Name Freq PRN Reason Stop Dose Admin Albuterol/Ipratropium 3 ml 01/17/19 19:00 01/18/19 10:38 Duoneb NEB 3 ml [id number] SUPRIYA Administration Amlodipine Besylate 10 mg 01/18/19 09:00 01/18/19 09:33 Norvasc PO 10 mg DAILY SUPRIYA Administration Famotidine 20 mg 01/18/19 09:00 01/18/19 09:34 Pepcid PO 20 mg DAILY SUPRIYA Administration Folic Acid 1 mg 01/18/19 09:00 01/18/19 09:33 Folvite PO 1 mg DAILY SUPRIYA Administration Heparin Sodium (Porcine) 5,000 units 01/17/19 15:00 01/18/19 09:34 Heparin SC 5,000 units TID SUPRIYA Administration Sodium Chloride 1,000 mls @ 50 mls/hr 01/18/19 09:15 01/18/19 09:46 1/2 Normal Saline IV 1,000 mls .Q20H SUPRIYA Administration Nicotine 21 mg 01/17/19 16:00 01/17/19 17:24 Nicoderm Patch TD 21 mg 1600 SUPRIYA Administration - Exam General Appearance: NAD Eye: anicteric sclera ENT: moist mucosa Neck: supple Heart: RRR, no rubs Respiratory: CTAB Gastrointestinal: soft, non-tender Neurological: no weakness Psychiatric: normal affect, normal behavior Hosp A/P (1) Pleural effusion Code(s): J90 - PLEURAL EFFUSION, NOT ELSEWHERE CLASSIFIED Status: Acute (2) Acute worsening of stage 4 chronic kidney disease Code(s): N18.4 - CHRONIC KIDNEY DISEASE, STAGE 4 (SEVERE) Status: Acute (3) Adenocarcinoma Code(s): C80.1 - MALIGNANT (PRIMARY) NEOPLASM, UNSPECIFIED Status: Acute (4) Tobacco abuse Code(s): Z72.0 - TOBACCO USE Status: Chronic - Plan out of bed/ambulate s/p thoracentesis, improved. nephrology following. Continue nicotine replacement therapy.
--- NOTE | 2019-01-18 15:16 | PDOC.PALCO ---
Palliative Care Consult - Consult Details Requesting Physician: Dr Arias Reason for Consult: goals of care Family Members Present: None - Pertinent HPI 58 year old female familiar to the Palliative Care Team. Last admission was Jan 08 for malignant adenocarcinoma, and acute renal disease stage three. patient was discharged home after plurex was placed to right chest wall, patient opted to forgo chemo therapy. Has had shortness of breath since discharge with increasing in severity and returned to the emergency room for evaluation. Evaluation identified left sided plural effusion contributing to hypoxic state and respiratory failure. Elevated potassium and progressing kidney disease. Admitted and palliative care consult for goals of care. - Social History Smoking Status: Current every day smoker Smoking: cigarettes Alcohol Use: heavy, daily (Denies difficulity with withdrawl in the hospital setting) Drug Use History: none - Allergies Allergies/Adverse Reactions: Allergies Allergy/AdvReac Type Severity Reaction Status Date / Time No Known Drug Allergies Allergy Verified 01/17/19 18:44 - Subjective Continues to be short of breath, improved and productive cough. Denies any other complaints ROS 10 point review negative with the exception of above mentioned. - Objective Vital Signs: Vital Signs - Most Recent Temp Pulse Resp BP Pulse Ox 97.5 F L 90 16 118/66 99 01/18/19 11:21 01/18/19 14:17 01/18/19 14:17 01/18/19 11:21 01/18/19 11:21 Palliative Performance Scale: 50 - Physical Exam Constitutional: mild distress HEENT: moist MMs, EOMI Deviation from normal: Labored respirations with mild accessory muscle use. Cardiovascular: RRR Gastrointestinal: soft, positive bowel sounds Musculoskeletal: pulses present Neurological: moves all 4 limbs Psychiatric: A&O x 3 - Plan/Recommendations Plan: Difficult to determine goals of care. Patient uninsured, Medicaid pending. 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 Communicates with Qiana THRASHER [90] minutes spent on this encounter with >50% of the time in counseling and coordination of care. Thank you for this very appropriate consult.
--- NOTE | 2019-01-18 15:21 | PRG ---
DATE OF SERVICE: 01/18/2019 SERVICE: Pulmonary Medicine. INTERVAL HISTORY: The patient has done really well from respiratory standpoint ever since the thoracentesis was performed. 1600 mL of fluid was removed, and her breathing has improved dramatically. She denies any fevers or chills. There were no significant overnight events. PHYSICAL EXAMINATION: VITAL SIGNS: Afebrile, pulse 90, blood pressure 118/66, respirations 22, and saturation 99% on 2 L nasal cannula. GENERAL: The patient is awake and alert, in no apparent distress. LUNGS: Good air entry on the left. There is a small effusion on the right. PleurX catheter is in place there. There is no purulent material around the PleurX site. LABORATORY DATA: WBC 10.9, hemoglobin 10.0, and platelets 307,000. Creatinine 4.16 and roughly stable, BUN 51. Basic metabolic profile is otherwise unremarkable. Calcium 8.0. Blood cultures are negative x2. IMAGING DATA: Chest x-ray following the thoracentesis demonstrates near resolution in the left-sided pleural effusion. There is a persistent right-sided pleural effusion. The right-sided effusion is still noted. There is a PleurX catheter, which is tunneled and in decent position. ASSESSMENT: 1. Acute hypoxic respiratory failure, essentially resolved. 2. Malignant effusion, bilateral, status post PleurX catheter on the right. 3. Chronic kidney disease, stage 4. DISCUSSION AND PLAN: From a purely respiratory standpoint, the patient is stable for transition out of the hospital. What she absolutely needs is definitive therapy for this cancer process. I would hate to put a PleurX in bilaterally as this could result in auto-pleurodesis. If that happen bilaterally, she will have difficult time breathing throughout the rest of her life. She appears to be dehydrated to me. I am going to give her a liter of fluid, and initiate a very slow rate of maintenance fluids. Hopefully, this will supplement her poor p.o. intake. I will recheck hemoglobin and hematocrit as well as chemistries in the morning. From my perspective, the patient has returned to baseline. It would be reasonable for us to transition her out of the hospital provided that she had very close oncology followup. An Oncology consultation will be placed to see if her management needs to be expedited. Job ID: [id number]
[2019-01-18] MEDS: Nicotine 21 MG PATCH TD SCH (16:03)
[2019-01-18] MEDS: Sodium Bicarbonate Tab 325 MG TAB PO SCH ×2 (16:03→21:12)
[2019-01-18] MEDS: Acetaminophen/Codeine 30-300mg Tablet PO PRN (21:11)
--- NOTE | 2019-01-18 22:17 | CON ---
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 HISTORY OF PRESENT ILLNESS: Ms. 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 She was seen in this hospital in early December and had a pancreatic mass, bilateral upper retroperitoneal lymphadenopathy, a moderate to large pleural effusion and a right lower lobe consolidation. She did have a PleurX catheter placed and was discharged home. She saw Dr. Wells on January 14. Her CA-19-9 was [id number]. At that time, she had agreed to chemotherapy with gemcitabine and Abraxane. She presented to this facility yesterday with worsening shortness of breath. Dr. العلي saw the patient and she had a large left pleural effusion. She had an elevated creatinine of 3.97 with a GFR of 14. We were asked to see the patient regarding her cancer. PAST MEDICAL HISTORY: 1. Newly diagnosed pancreatic cancer. 2. Alcohol abuse. 3. Pancreatitis. 4. Hypertension. PAST SURGICAL HISTORY: 1. Hand surgery. 2. PleurX catheter placement. ALLERGIES: NO KNOWN DRUG ALLERGIES. HOME MEDICATIONS: 1. Amlodipine 10 mg daily. 2. Folic acid daily. 3. Tylenol No. 3 p.r.n. 4. Pepcid daily. 5. Senokot daily. FAMILY HISTORY: Noncontributory. SOCIAL HISTORY: She is single, has 1 child. REVIEW OF SYSTEMS: Positive for weight loss, shortness of breath, cough, and weakness. PHYSICAL EXAMINATION: VITAL SIGNS: Temperature is 97.5, pulse is 90, respiratory rate 16, BP is 118/66. She is 99% on 2 L. GENERAL: This is a cachectic, chronically ill-appearing female, in no acute distress. HEENT: Normocephalic, atraumatic. Pupils are equal and reactive to light. CV: Regular rate and rhythm. LUNGS: Diminished. SKIN: No rash. NEUROLOGIC: Nonfocal. PSYCHIATRIC: She is alert and oriented. PERTINENT LABORATORY DATA AND X-RAYS: WBC is 10.9, hemoglobin 10, hematocrit 31.2, platelet count 307,000. Sodium 138, potassium 4.3, chloride 107, CO2 16, BUN is 51, creatinine 4.16, calcium is 8.0, bilirubin 0.3, AST is 10, ALT is less than 7, and alkaline phosphatase is 67. Serum total protein is 6.6, albumin 3.0, globulin 3.6. ASSESSMENT: Stage IV pancreatic cancer with bilateral pleural effusions. DISCUSSION: The patient now declines chemotherapy. She would like to go home. She declines hospice. I encouraged her to seek hospice care as they would assist with any symptoms she is having including pain. Thank you for the consult. We will sign off. Call if needed. Job ID: [id number]
[2019-01-19 05:02] VITALS: TEMP 97.8
[2019-01-19] MEDS: Sodium Chloride 0.45% 1,000 ML IV SCH (05:43)
[2019-01-19] MEDS: Amlodipine 10 MG TAB PO SCH (10:41)
[2019-01-19] MEDS: Famotidine 20 MG TAB PO SCH (10:42)
[2019-01-19] MEDS: Heparin 5,000 UNITS/ML VIAL SC SCH ×2 (10:42→15:36)
[2019-01-19] MEDS: Sodium Bicarbonate Tab 325 MG TAB PO SCH ×2 (10:42→15:36)
[2019-01-19] MEDS: Folic Acid 1 MG TAB PO SCH (10:42)
[2019-01-19] MEDS: Acetaminophen/Codeine 30-300mg Tablet PO PRN (10:45)
--- NOTE | 2019-01-19 12:11 | PRG ---
DATE OF SERVICE: 01/19/2019 SUBJECTIVE: A 58-year-old female, being seen for acute kidney injury. The patient denied any nausea, vomiting, or chest pain. OBJECTIVE: CONSTITUTIONAL: The patient is awake and alert. VITAL SIGNS: Pulse 75, breathing 16, blood pressure was 131/75. GENERAL APPEARANCE AND MENTAL STATUS: Fair. HEAD/NECK: Normocephalic. Atraumatic. EYES: EOMI. No deformity. EARS: Clear. No ulcers. NOSE: Intact. No lesions. MOUTH: Clear. No discharge. THROAT: Clear. No exudate. LUNGS: Clear. No crackles. CARDIAC: S1, S2. No rub. ABDOMEN: Benign. Bowel sounds positive. GENITALIA/RECTUM: Suggs absent. BACK/EXTREMITIES: Edema 0+. NEUROLOGICAL: Alert and motor intact. SKIN: LYMPHATICS: LABORATORY DATA: Reviewed. ASSESSMENT AND PLAN: 1. Stage 5 chronic kidney disease. The patient has refused dialysis or any form of therapy, and has signed off for hospice. 2. Hypertension, stable. 3. Anemia, stable. I will sign off on this patient. Please reconsult as needed. Job ID: [id number]
[2019-01-19 12:48] LABS: Anion Gap 20 mmol/L (10-20); BUN (Urea Nitrogen) 53 mg/dL (9.8-20.1); Calc. Creatinine Clearance 13 mL/min (70-130); Calcium 7.8 mg/dL (7.8-10.44); Carbon Dioxide 18 mmol/L (22-29); Chloride 102 mmol/L (98-107); Estimated GFR-MDRD 16; Glucose 108 mg/dL (70-105); Magnesium 1.4 mg/dL (1.6-2.6); Potassium 3.4 mmol/L (3.5-5.1); Sodium 137 mmol/L (136-145)
[2019-01-19] MEDS ORDERED: Potassium Chloride 20 MEQ TAB PO SCH (14:30)
[2019-01-19] MEDS: Nicotine 21 MG PATCH TD SCH (15:36)
[2019-01-19 16:49] VITALS: BP 121/77
--- NOTE | 2019-01-19 17:02 | PRG ---
DATE OF SERVICE: 01/19/2019 OBJECTIVE: VITAL SIGNS: Stable. Heart rate is in the 80s, respiratory rates in the teens, oximetry is 96% on 2 L. Intake and outputs positive 1858. GENERAL: She is in no distress. IMPRESSION AND PLAN: The patient is status post PleurX catheter placement. Discharge planning, I would think would be the next step. Job ID: [id number]
--- NOTE | 2019-01-20 04:46 | DIS ---
DATE OF ADMISSION: 01/17/2019 DATE OF DISCHARGE: 01/19/2019 HOSPITAL COURSE: This is a 58-year-old female patient who presented to the ER on 01/17/2019 complaining of shortness of breath. She was hospitalized on December 30 through January 08 of this year for malignant adenocarcinoma, likely lung is the primary. Also, acute on chronic stage 3 kidney disease. During her hospitalization, she was seen by Oncology. She was offered chemotherapy but she refused. She was also found to have large right-sided pleural effusion and a PleurX catheter was placed. She returns complaining of shortness of breath. Since leaving the hospital, this shortness of breath has been getting worse. Her oxygen saturation was in the 80s on presentation. She was found to have a left large pleural effusion, thought to be the cause of her hypoxemia. Pulmonary services were consulted and a chest tube was placed. She was also found to have worsening of her chronic kidney disease. Her potassium was 5.5. For that reason, Nephrology was consulted. She was given Kayexalate. She underwent a chest tube placement and about 1600 mL of fluid was drawn without difficulty. She was much improved. She was started on sodium bicarbonate p.o. A Palliative Care consult was placed. She continued to decline chemotherapy and was wanting to go home. She initially declined hospice but then accepted it and today she looked well enough to go home, she is not complaining of any shortness of breath, no cough. Her labs were checked and potassium, magnesium were replaced. She did have a run of nonsustained V-tach yesterday, 15 beats, but none noted today. DISCHARGE DIAGNOSES: Stage IV pancreatic cancer with malignant pleural effusion and chronic kidney disease stage 4/5. The patient will be discharged on hospice. I will provide her with Tylenol No.3 in case she does not have until hospice takes over her care, also will provide her with prescription for sodium bicarbonate 3 times a day. Her other home medications will be resumed. More than half an hour was spent to discharge this patient. Job ID: [id number]
== END 2019-01-19 18:38 | disposition hospice, home (50) | DRG 374 ==
LOC: ERS 09:41 → ERHOLD 12:01 → 2NO 16:05
PROVIDERS: ADMIT Internal Medicine; ATTEND Internal Medicine
PROC: 0W9930Z Drainage of Right Pleural Cavity with Drainage Device, Percutaneous Approach (ICD-10-PCS; principal; 2019-01-17)
DX: C78.89 Secondary malignant neoplasm of other digestive organs (principal); N17.0 Acute kidney failure with tubular necrosis; J96.01 Acute respiratory failure with hypoxia; I13.2 Hypertensive heart and chronic kidney disease with heart failure and with stage 5 chronic kidney disease, or end stage renal disease; C34.90 Malignant neoplasm of unspecified part of unspecified bronchus or lung; J91.0 Malignant pleural effusion; N18.5 Chronic kidney disease, stage 5; Z51.5 Encounter for palliative care; F10.10 Alcohol abuse, uncomplicated; E87.5 Hyperkalemia; F17.210 Nicotine dependence, cigarettes, uncomplicated; D63.1 Anemia in chronic kidney disease; Z91.14 Patient's other noncompliance with medication regimen
CPT/HCPCS: 36415; 71045; 80048; 80053; 82550; 82553; 83605; 83690; 83735; 83880; 84484; 85025; 87040; 93005; 94640; 96361; 96365; 96375; J1642; J1644; J1940; J2543; J2920; J3370; J3475; J3490; J7620